=== PATIENT | male | born 1965 | race Caucasian/White ===

== ENCOUNTER 2018-06-30 15:32 | Inpatient (IN) ==
[2018-06-30] MEDS ORDERED: CLINDAMYCIN 900 MG/NS 900 MG/50 ML IVPB IV ONE (16:07)
[2018-06-30] MEDS ORDERED: CLINDAMYCIN 900 MG/D5W 900 MG/50 ML IVPB ONE (16:32)
[2018-06-30 17:04] LABS: BASO# 0.08 X1000 (0.0-0.2); BASO% 0.8 % (0.0-0.8); EOS# 0.11 X1000 (0.0-0.7); EOS% 1.1 % (0.0-10.0); HEMATOCRIT 34.3 % (42.0-52.0); HEMOGLOBIN 11.3 g/dL (14.0-18.0); IMM GRAN# 0.01 X1000 (0.0-0.04); IMM GRAN% 0.1 % (0.0-0.5); LYMPH# 1.79 X1000 (1.2-3.4); LYMPH% 17.2 % (20.5-51.1); MCHC 32.9 g/dL (33-37); MCV 106.2 FL (81-99); MONO# 1.72 X1000 (0.11-0.59); MONO% 16.5 % (1.7-9.3); MPV 9.1 FL (7.4-10.4); NEUT# 6.71 X1000 (1.4-6.5); NEUT% 64.3 % (42.2-75.2); PLT 152 X1000 (130-400); RBC 3.23 XMIL (4.7-6.1); RDW 20.3 % (11.5-14.5); WBC 10.42 X1000 (4.8-10.8)
[2018-06-30 17:09] LABS: OCCULT BLOOD 1 NEGATIVE (NEGATIVE)
[2018-06-30 17:15] LABS: INR 1.87; PROTIME 22.4 Seconds (11.0-16.0)
[2018-06-30 17:16] LABS: PTT 43.6 Seconds (22.3-41.8)
[2018-06-30 17:23] LABS: AGAP 12; ALBUMIN 2.8 g/dL (3.5-5.0); ALKALINE PHOSPHATASE 165 U/L (32-122); BUN 5 mg/dL (8-22); CALCIUM 8.4 mg/dL (8.8-10.2); CHLORIDE 91 mmol/L (98-107); COSMO 270; CREATININE 0.5 mg/dL (0.7-1.2); ESTIMATED GFR > 60; GLUCOSE 113 mg/dL (70-104); GOT 104 U/L (10-34); GPT 22 U/L (10-44); LIPASE 49 U/L (13-60); POTASSIUM 2.9 mmol/L (3.5-5.1); SODIUM 136 mmol/L (136-145); TCO2 33 mmol/L (25-35); TOTAL PROTEIN 8.5 g/dL (6.3-8.3)
[2018-06-30] MEDS ORDERED: KLOR-CON PO ONE (18:05)
[2018-06-30] MEDS ORDERED: CLINDAMYCIN 900 MG/D5W 900 MG/50 ML IVPB IV SCH (18:30)
--- NOTE | 2018-06-30 19:50 | HISTORY AND PHYSICAL ---
CHIEF COMPLAINT: Generalized weakness. HISTORY OF PRESENT ILLNESS: The patient is a 53-year-old male who states he has history of alcohol induced liver issues, but notes that he has never been told he has cirrhosis before. States that he has not really eaten anything for the past month. He has had decreased appetite, generalized weakness, states his abdomen has been getting larger. He is unsure of when his eyes became muddy or skin became jaundiced because he did not realize that that had happened even at this point. Patient denies any fevers or chills. Denies any constipation or melena but notes that he has not been eating. Denies any vomiting or hematemesis. ALLERGIES: No known drug allergies. MEDICATIONS: We do not have an active medication list. REVIEW OF SYSTEMS: As noted above. Denies any GI issues other than nausea, decreased appetite. Denies any hematemesis, hematochezia, melena. Denies chest pain or palpitations. Denies any fevers or chills. States that he does have a rash on his right testicle that keeps popping up and busting. Notes that he has had black stools in the past, but nothing in the past few days. Denies any localized weakness. Denies headaches, blurred vision, change in vision. States he is generally weak and having difficulty ambulating. States he has a long history of alcoholism, but does note that he has been slowly weaning down his alcohol and currently is drinking less than 1 drink a day. FAMILY HISTORY: Noncontributory. 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 SOCIAL HISTORY: Patient lives at home. He does smoke a pack a day. He has a long history of alcoholism but notes that he has been slowly decreasing and currently is less than 1 drink a day. PHYSICAL EXAMINATION: VITAL SIGNS: Reviewed. Temperature 98 degrees, pulse 109, respiratory rate 18, BP 125/89, saturation 96% on room air. GENERAL: Patient is awake, alert. He is very pleasant to talk with. HEENT: Normocephalic. NECK: Supple. CARDIOVASCULAR: Regular rate. CHEST: Clear. ABDOMEN: Soft. Positive fluid wave, distended, relatively nontender. Decreased bowel sounds. EXTREMITIES: Moves all extremities. NEUROLOGIC: He is awake, alert, oriented. LABORATORY DATA: CBC essentially normal. Potassium 2.9. Glucose 113, bilirubin 7.1, AST 104, ALT 22, alkaline phosphatase 165 and plasma lactate at 2.3. ASSESSMENT: 1. Sepsis secondary to scrotal infection. 2. Scrotal cellulitis. 3. 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 4. Chronic alcoholism. 5. Jaundice with elevated bilirubin. PLAN: We will transfer him to [facility] so we can obtain a CT scan of his abdomen as well as a GI consult. We will continue to follow, keep him n.p.o. currently until after his CT scan, and we will follow. cc: Juan Francisco Edwards MD
[2018-07-01] MEDS ORDERED: ZOFRAN IV PRN (00:51)
[2018-07-01] MEDS ORDERED: MOTRIN PO ONE (01:08)
[2018-07-01 02:17] LABS: URINE SOURCE CLEAN CATCH
[2018-07-01 02:25] LABS: BILIRUBIN URINE MODERATE (NEGATIVE); BLOOD URINE LARGE (NEGATIVE); COLOR YELLOW; GLUCOSE URINE NEGATIVE (NEGATIVE); KETONE URINE 10 mg/dL (NEGATIVE); LEUKOCYTES URINE TRACE (NEGATIVE); NITRITE URINE NEGATIVE (NEGATIVE); PROTEIN URINE 50 mg/dL (NEGATIVE); TURBIDITY URINE HAZY (CLEAR); UROBILINOGEN URINE >12 mg/dL (NORMAL)
[2018-07-01 02:29] LABS: UR EPITHELIAL CELLS <10 /HPF (<10); URINE BACTERIA NEGATIVE /HPF; URINE RBC TNTC /HPF (<10); URINE WBC <10 /HPF (<10)
[2018-07-01 02:59] LABS: URINE YEAST NONE SEEN
[2018-07-01 03:00] LABS: URINE CASTS NONE SEEN; URINE CRYSTALS NONE SEEN; URINE SMALL ROUND CELLS NONE SEEN
[2018-07-01] MEDS: CLINDAMYCIN 900 MG/D5W 900 MG/50 ML IVPB IV SCH ×3 (03:00→17:57)
[2018-07-01] MEDS: MORPHINE IV PRN ×2 (03:05→16:21)
[2018-07-01] MEDS: SYNTHROID PO SCH (06:11)
[2018-07-01 07:33] LABS: HEMATOCRIT 32.2 % (42.0-52.0); HEMOGLOBIN 10.3 g/dL (14.0-18.0); MCH 34.7 PG (27-31); MCV 108.4 FL (81-99); MPV 8.9 FL (7.4-10.4); RBC 2.97 XMIL (4.7-6.1); RDW 19.7 % (11.5-14.5); WBC 7.01 X1000 (4.8-10.8)
--- NOTE | 2018-07-01 08:01 | Diag Imaging Result Doc PS360 ---
EXAM: CT ABD/PELVIS W/IV CONT ONLY 07/01/2018 HISTORY: elev t bili TECHNIQUE: This exam was performed using automated exposure control, adjustment of mA or kV according to patient size, and/or use of iterative reconstruction technique. COMMENT: There is a large left pleural effusion. There is atelectasis of the left lower lobe. There is marked ascites. The spleen is enlarged measuring 16.3 x 13.3 cm. The liver is markedly inhomogeneous and shrunken in appearance. The liver is generally hypodense. There are multiple small stones in the gallbladder. The gallbladder wall is not particularly thickened. There is no evidence of biliary dilatation. The common bile duct measures less than 6 mm. There are numerous variceal collaterals. There has been gastric bypass. There are multiple nodules in the right adrenal gland one of which in the medial lobe measures 13 mm. There is less densely enhancing nodularity in the midportion of the gland measuring 15 mm in diameter. The left adrenal gland is unremarkable. There are multiple enlarged mesenteric nodes as well as periportal nodes one of which measures 15 mm in diameter. There is diverticulosis coli. There is no evidence of small bowel dilatation. There is no evidence of hydronephrosis. There is a small cyst in the lower pole of the right kidney. There is a 4 mm calculus in the lower pole of the right collecting system. Pelvis: There is marked diverticulosis in the sigmoid colon without evidence of diverticulitis. The urinary bladder is not distended. There is ankylosis of both sacroiliac joints. There is no evidence of acute bony abnormality. IMPRESSION: Severe cirrhosis with extensive hepatic necrosis. Ascites and splenomegaly. Right nephrolithiasis. Diverticulosis coli. Mesenteric and periportal adenopathy. Large left pleural effusion and left lower lobe atelectasis. Electronically signed by Usman Whitt 07/01/2018 7:59 AM
[2018-07-01 09:40] LABS: AGAP 11; ALB/GLOB RATIO 0.6; ALBUMIN 2.6 g/dL (3.5-5.0); ALKALINE PHOSPHATASE 125 U/L (32-122); BUN 6 mg/dL (8-22); CHLORIDE 93 mmol/L (98-107); COSMO 269; CREATININE 0.7 mg/dL (0.7-1.2); ESTIMATED GFR > 60; GLUCOSE 97 mg/dL (70-104); GOT 100 U/L (10-34); GPT 20 U/L (10-44); POTASSIUM 2.9 mmol/L (3.5-5.1); SODIUM 136 mmol/L (136-145); TCO2 32 mmol/L (25-35); TOTAL BILIRUBIN 5.85 mg/dL (0.20-1.00); TOTAL PROTEIN 7.1 g/dL (6.3-8.3)
[2018-07-01] MEDS: PROTONIX PO SCH (09:43)
[2018-07-01] MEDS ORDERED: KLOR-CON PO ONE (10:00)
[2018-07-01] MEDS ORDERED: LASIX PO SCH (10:00)
[2018-07-01] MEDS ORDERED: LACTULOSE PO SCH (10:00)
[2018-07-01] MEDS ORDERED: ALDACTONE PO SCH (10:00)
[2018-07-01] MEDS ORDERED: ATIVAN IV PRN (10:02)
--- NOTE | 2018-07-01 10:41 | PROGRESS NOTE ---
DATE: 07/01/2018 SUBJECTIVE: The patient is resting comfortably in bed. He is complaining of some abdominal pain and distention, and scrotal discomfort. He is not having nausea or vomiting but his appetite has decreased. As per the patient, he started drinking around 20 years ago. Mainly, he has been drinking vodka and he is a heavy drinker. As per the patient, he is an alcoholic and he has been trying to stop multiple times. He has been transferred from [facility] to this hospital to be evaluated by the gastroenterology department and urology. We have a CT scan report that showed severe cirrhosis with extensive hepatic necrosis, ascites and splenomegaly, right nephrolithiasis, diverticulosis coli mesenteric and periportal adenopathy, large left pleural effusion, and left lower lobe atelectasis. OBJECTIVE: Vital Signs: Temperature 98 degrees, pulse 93, respiratory rate 16, blood pressure 112/64, oxygen saturation 98 on room air. HEENT: Head normocephalic. No trauma. PERRLA. Icteric sclerae. Skin: Jaundiced. Spider angiomata, which is mostly on his chest. Neck: Supple. No JVD. Central trachea. Chest: Bilateral crackles at the bases, mostly on the left side. Decreased breath sounds at the bases. Abdomen: Soft, protuberant, distended, ascites. Extremities: No clubbing, no cyanosis. Inguinal Area: His scrotal area has an indurated area and, as per the patient, drained some pus a few days ago. It is still red and painful to palpation. Neurologic Examination: The patient is alert and oriented x3. No focal deficits. Laboratory: WBCs 7, hemoglobin 10.3, hematocrit 32.2, platelets 122,000. Sodium 126, potassium 2.9, chloride 93, bicarbonate 32, BUN 6, creatinine 0.7, glucose 97, calcium 8. Total bilirubin is 5.8, AST 100, ALT 20, alkaline phosphatase 125, albumin 2.6. ASSESSMENT AND PLAN: 1. Sepsis due to scrotal abscess/cellulitis. Urology department also has been consulted to evaluate this patient. It has been described a right nephrolithiasis but we do not see any evidence of hydronephrosis. We will continue with clindamycin for now. We will monitor. 2. Severe cirrhosis with extensive hepatic necrosis. I have placed this patient on lactulose, spironolactone, and furosemide. I have requested an evaluation by the gastroenterology department. As per the patient, he has been told that he had alcoholic hepatitis and a fatty liver but never liver cirrhosis. 3. Alcohol abuse. As per the patient, his last drink was 4 days ago. I have placed this patient on Librium to avoid withdrawal and Ativan as needed. This patient has been highly advised against alcohol abuse. I will continue with daily cessation education. 4. Bilateral pleural effusion. He is not complaining of shortness of breath. For now, we will use diuretics to see how he does. I will request a chest x-ray in the morning. cc: Curtis Willoughby MD
[2018-07-01] MEDS: LIBRIUM PO SCH ×2 (11:05→16:20)
--- NOTE | 2018-07-01 14:57 | EKG Report ---
Test Performed on : 06/30/2018 4:06:33 PM Test Reason : [facility] Blood Pressure : / mmHG Vent. Rate : 107 BPM Atrial Rate : 107 BPM P-R Int : 148 ms QRS Dur : 084 ms QT Int : 318 ms P-R-T Axes : 029 022 177 degrees QTc Int : 424 ms Sinus tachycardia. Septal infarct , age undetermined Abnormal ECG No previous ECGs available Unconfirmed Result
[2018-07-01] MEDS: FOLIC ACID PO SCH (17:57)
[2018-07-01] MEDS: THERA M PLUS PO SCH (17:57)
[2018-07-01] MEDS: VITAMIN B-1 PO SCH (17:57)
[2018-07-01 18:10] LABS: FERRITIN 188 ng/mL (30-400)
--- NOTE | 2018-07-01 18:54 | CONSULTATION ---
DATE OF CONSULTATION: 07/01/2018 ATTENDING AND REFERRING PHYSICIAN: Hospitalist. HISTORY OF PRESENT ILLNESS: This 53-year-old male states that about 2 months ago he had a nodule in the scrotum just to the left of midline. He states it became red and sore, and spontaneously drained. He states it felt better and then about 4 weeks ago it started again, and spontaneously drained. He states he has had a nodule there for the last 4 weeks. He states it is nontender at present. He was seen in the emergency room because of weakness and not feeling well, with some weight loss. A CT scan of the abdomen and pelvis was obtained that revealed cirrhosis with extensive hepatic necrosis, splenomegaly, ascites and a large left pleural effusion. Also noted was a nonobstructing 4 mm stone in the right lower pole kidney. Changes of gastric bypass were also noted. The patient states he has a long history of alcohol abuse and has had liver problems secondary to that. PAST MEDICAL HISTORY: Gastroesophageal reflux disease, gastric ulcers, alcohol-induced hepatitis, fatty liver, hypothyroidism and symptoms of depression. MEDICATIONS: Current medications are documented on the chart. 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 SOCIAL HISTORY: ETOH abuse, still drinking several drinks each day. Cigarettes 3 to 4 a day for greater than 15 years. ALLERGIES: No known drug allergies. REVIEW OF SYSTEMS: He denies any voiding problems. He has had no hematuria. He has had no flank pain. He has no problems with urinary tract infections. He denies any previous urologic surgery. PHYSICAL EXAMINATION: General: An obese, age-apparent, normally developed white male, oriented in all ways and cooperative. HEENT is normal for age. Lungs clear. Cardiovascular: Regular rate and rhythm. Abdomen obese, with ascites. : Uncircumcised male. Both testes are down and somewhat small. Foreskin retracts. There is an approximate 1 cm nodule just to the left of midline in the lower scrotum that is very firm, consistent with an epidermal inclusion cyst. It is nontender. Rectal exam is deferred. Extremities: No cyanosis or clubbing. Lower extremity pitting edema +1. Neurologic: No focal deficits. LABORATORY DATA: He has a white count of 7.01, hemoglobin 10.3, hematocrit 32.2 and platelets are 122,000. Serum electrolytes are normal with a BUN of 17 and creatinine 0.9. A urinalysis had large blood on the dipstick, moderate bilirubin, trace leukocytes. The microscopic exam revealed less than 10 WBC/HPF, zbd-flhqggpt-vs-count red cells, negative bacteria. DIAGNOSTIC DATA: CT scan is as noted in the HPI. IMPRESSION: Patient with multiple medical problems and a history of an infected epidermal inclusion cyst that is resolving. RECOMMENDATIONS: 1. Recommend continuing IV antibiotics. 2. The patient could have the epidermal inclusion cyst removed after his GI and pulmonary problems have resolved. Thank you for this consultation. cc: José Hernandez MD
[2018-07-01] MEDS: VITAMIN K 10 MG in NS 50 ML IV SCH (19:23)
[2018-07-01] MEDS: CYMBALTA PO SCH (20:25)
[2018-07-02] MEDS: LIBRIUM PO SCH ×5 (02:29→22:36)
[2018-07-02] MEDS: CLINDAMYCIN 900 MG/D5W 900 MG/50 ML IVPB IV SCH ×4 (02:33→17:51)
--- NOTE | 2018-07-02 03:44 | GASTROENTEROLOGY CONSULTATION ---
DATE: 07/01/2018 REASON FOR CONSULTATION: Decompensated cirrhosis. HISTORY OF PRESENT ILLNESS: Mr. Kenroy Nath is a 53-year-old gentleman with a past medical history of decompensated cirrhosis with ascites diagnosed in March 2018, who presents with 1 month of decrease in p.o. intake, decreased appetite, diffuse weakness and abdominal pain. The patient reports being hospitalized at [facility] last summer for ascites. At that time he was told that he had alcoholic hepatitis and fatty liver, but was unaware of any underlying cirrhosis. [facility] where he underwent an EGD and colonoscopy that revealed polyps. He said there was no evidence of varices per his report. Records unavailable for review. More recently, he has noticed a 15 pound weight loss associated with decreased appetite. No nausea, vomiting, fevers, chest pain or shortness of breath. He has noted some decreased urine output and constipation. No diarrhea. He has had black stool in the past while taking iron. None recently. He has never had a paracentesis in the past. He does drink quite a bit of alcohol, but has been weaning down, most recently drinking about a pint of liquor per day. Last year he was drinking up to a fifth alcohol daily, and been drinking for the last 15 to 20 years. PAST MEDICAL HISTORY: Gastric bypass, Nik-en-Y 20 years ago, alcoholism. PAST SURGICAL HISTORY: Nik-en-Y gastric bypass. FAMILY HISTORY: His brother and sister are both alcoholics. No family history of liver disease or GI malignancy. SOCIAL HISTORY: He smokes 3 to 4 cigarettes per day. Alcohol intake as above. No drug use. MEDICATIONS: He is on Cymbalta, levothyroxine, pantoprazole. ALLERGIES: No known drug allergies. REVIEW OF SYSTEMS: As per HPI, otherwise 12 point review of systems. PHYSICAL EXAMINATION: Vital Signs: Temperature 98.2, pulse 107, blood pressure 113/66, respiratory rate 18, O2 saturation 96% on room air. General: Patient is awake, alert, oriented, no acute distress. HEENT: Sclera icteric. Extraocular motor intact. Moist mucous membranes. No oropharyngeal lesions. Neck: Supple. No JVD. No lymphadenopathy. Cardiac: Tachycardic, regular. No murmurs. Lungs: Decreased breath sounds on the left posterior lung field. Clear to auscultation on the right. Abdomen: Obese, soft, nontender. Minimally distended. Difficult to appreciate ascites. Extremities: No clubbing, cyanosis, or edema. Neurologic: Cranial nerves II-XII grossly intact. No asterixis. LABORATORY: On admission: White count of 10.4, hemoglobin 11.3, platelets of 152,000. INR of 1.87. Sodium 136, potassium 2.9, chloride 91, bicarb 33, BUN 5, creatinine 0.5, glucose 113, calcium 8.4, magnesium 1.8, total bilirubin 7.1, AST 104, ALT 22, alkaline phosphatase 165, albumin 2.8, total protein 8.5, lipase 49, plasma lactate 2.3, TSH 5.5. UA notable for large blood, proteinuria, bilirubin, trace leuk esterase, no white blood cells. Occult blood, stool negative. Blood cultures x 2 pending. Urine culture pending. IMAGING: CT of the abdomen and pelvis with IV contrast only shows severe cirrhosis with extensive hepatic necrosis, ascites and splenomegaly, right nephrolithiasis, diverticulosis, mesenteric and periportal adenopathy, large left pleural effusion and left lower lobe atelectasis. ASSESSMENT AND PLAN: Mr. Kenroy Nath is a 53-year-old gentleman who presents with worsening decompensated alcoholic cirrhosis, complicated by ascites, jaundice. His LFTs show cholestatic liver injury with the AST/ALT ratio 3:1, consistent with alcoholic liver disease and alcoholic hepatitis. Discriminant function is 48, his [*] sodium is 23. He is currently on antibiotics for scrotal abscess versus cellulitis. Urology is following. In light of possibility of infection, he is not a candidate for steroids at this moment. We will continue to treat him supportively by trending his LFTs, INR and [*]. Other notable findings on his labs include macrocytic anemia ,coagulopathy hypokalemia, elevated lactate. 1. Decompensated alcoholic cirrhosis and ascites appears to be perihepatic and perisplenic. Minimal ascites is visualized in his lower abdomen, probably [*] difficult to tap at this time. 2. Esophageal varices. The patient had a recent EGD a couple months ago that was negative for varices, although he does have intra-abdominal varices seen on imaging. We will continue to monitor for any signs of overt bleeding. 3. Hepatic encephalopathy. Patient has no evidence of asterixis or encephalopathy at this time. We will hold sedating medications and continue to monitor for any changes. 4. [*]screening. No evidence of hepatoma seen on CT abdomen and pelvis. The patient will need a screening liver ultrasound every 6 months to evaluate for HCC. The patient is not a candidate for liver transplant evaluation at this time given his recent alcohol use and lack of insight of his underlying liver disease. 5. Immunizations. At some point he will need to have hepatitis A and B serology checked for immunity and vaccinated if negative. We will check hepatitis B surface antigen and hepatitis C antibody here in the hospital. 6. Alcoholic hepatitis. The patient is not a candidate for steroids at this time given his cellulitis versus abscess. We will start him on pentoxifylline for renal protection. Recommend high protein calorie diet, multivitamin, thiamin, folate and continued alcohol cessation counseling. 7. Cellulitis versus abscess. The patient is on clindamycin per primary team. 8. Anemia, macrocytic. We will check B12 and folate as well as iron studies. 9. Thrombocytopenia secondary to splenomegaly. 10. Coagulopathy. INR is 1.87. We will give him IV vitamin K 10 mg x 1. 11. Hypokalemia. Recommend replete as needed. Continue to trend chemistries. Defer management to primary team. 12. Severe protein calorie malnutrition, likely secondary to alcoholism and cirrhosis. Nutrition as above. 13. Large left pleural effusion. Recommend diagnostic and therapeutic thoracentesis as per primary team checking for lytes criteria, culture, Gram stain. Thank you for this consult. We will follow with you. Please call with any questions or concerns.
[2018-07-02] MEDS: SYNTHROID PO SCH (06:42)
[2018-07-02 07:48] LABS: BASO# 0.06 X1000 (0.0-0.2); BASO% 0.9 % (0.0-0.8); EOS# 0.17 X1000 (0.0-0.7); EOS% 2.5 % (0.0-10.0); HEMATOCRIT 33.3 % (42.0-52.0); HEMOGLOBIN 10.7 g/dL (14.0-18.0); IMM GRAN# 0.02 X1000 (0.0-0.04); IMM GRAN% 0.3 % (0.0-0.5); LYMPH# 1.26 X1000 (1.2-3.4); LYMPH% 18.6 % (20.5-51.1); MCH 34.6 PG (27-31); MCHC 32.1 g/dL (33-37); MCV 107.8 FL (81-99); MONO# 1.04 X1000 (0.11-0.59); MONO% 15.3 % (1.7-9.3); MPV 9.5 FL (7.4-10.4); NEUT# 4.23 X1000 (1.4-6.5); NEUT% 62.4 % (42.2-75.2); PLT 138 X1000 (130-400); RBC 3.09 XMIL (4.7-6.1); RDW 19.4 % (11.5-14.5); WBC 6.78 X1000 (4.8-10.8)
[2018-07-02 07:51] LABS: INR 2.06; PROTIME 24.7 Seconds (11.0-16.0)
[2018-07-02 08:08] LABS: AGAP 10; ALB/GLOB RATIO 0.5; ALBUMIN 2.4 g/dL (3.5-5.0); ALKALINE PHOSPHATASE 153 U/L (32-122); BUN 6 mg/dL (8-22); CALCIUM 8.2 mg/dL (8.8-10.2); CHLORIDE 96 mmol/L (98-107); COSMO 274; CREATININE 0.9 mg/dL (0.7-1.2); ESTIMATED GFR > 60; GLUCOSE 119 mg/dL (70-104); GOT 102 U/L (10-34); GPT 21 U/L (10-44); MAGNESIUM 1.5 mg/dL (1.5-2.7); SODIUM 138 mmol/L (136-145); TCO2 32 mmol/L (25-35); TOTAL BILIRUBIN 5.77 mg/dL (0.20-1.00); TOTAL PROTEIN 6.8 g/dL (6.3-8.3)
[2018-07-02 08:11] LABS: BANDS 4 % (0-1); EOS 4 % (1-10); LYMPHS 16 % (21-51); MONO 6 % (1-9); SEGS 70 % (42-75)
--- NOTE | 2018-07-02 08:27 | Diag Imaging Result Doc PS360 ---
EXAM: CHEST-2 VIEWS 07/02/2018 HISTORY: hypoxia TECHNIQUE: PA and lateral chest COMMENT: There is a fairly large left pleural effusion. There is atelectasis versus pneumonia in the left lower lobe with air bronchograms. There is some atelectasis in the lingula as well. The right lung is clear. There are no previous studies. IMPRESSION: Left lower lobe and lingular pneumonia with pleural effusion. Electronically signed by Usman Whitt 07/02/2018 8:25 AM
[2018-07-02] MEDS: VITAMIN K 10 MG in NS 50 ML IV SCH (09:04)
[2018-07-02] MEDS: PROTONIX PO SCH (09:05)
[2018-07-02] MEDS: FOLIC ACID PO SCH (09:05)
[2018-07-02] MEDS: THERA M PLUS PO SCH (09:05)
[2018-07-02] MEDS: TRENTAL PO SCH ×3 (09:05→17:51)
[2018-07-02] MEDS: VITAMIN B-1 PO SCH (09:05)
[2018-07-02] MEDS ORDERED: KLOR-CON PO ONE (10:10)
--- NOTE | 2018-07-02 13:50 | PROVIDER PROGRESS NOTE ---
Progress Note SUBJECTIVE: No acute overnight events. No N/V/F, CP. Mild SOB. Abdominal distension but no pain. Some improved UOP. +BM without blood. OBJECTIVE Last Vital Signs Temp 97.8 F 07/02/18 11:45 Pulse 101 H 07/02/18 11:45 Resp 18 07/01/18 15:35 BP 109/63 07/02/18 11:45 Pulse Ox 97 07/02/18 11:45 Height 5 ft 9 in Weight 215 lb 9.6 oz GEN: chronically ill-appearing, NAD HEENT: icteric, MMM CV: tachycardic, regular PULM: decreased BS left posterior lung field; clear on right ABD: obese, distended, NT, NABS, minimal ascites EXT: no cce NEURO: CNII-XII grossly intact; no asterixis SKIN: jaundice LABS 07/02/18 07/02/18 07/02/18 07:26 07:26 07:26 WBC 6.78 Hgb 10.7 L MCV 107.8 H Plt Count 138 INR 2.06 Sodium 138 Potassium 3.0 L Chloride 96 L Carbon Dioxide 32 BUN 6 L Creatinine 0.9 Iron 58 Ferritin 188 Total Bilirubin 5.77 H AST 102 H ALT 21 Alkaline Phosphatase 153 H Total Protein 6.8 Albumin 2.4 L Vitamin B12 >2000 Folate 10.6 A/P: Mr. Kenroy Nath is a 53-year-old gentleman who presents with worsening decompensated alcoholic cirrhosis, complicated by ascites and jaundice. He also had alcoholic hepatitis with high DF. Other notable findings on his labs include macrocytic anemia ,coagulopathy, hypokalemia, elevated lactate. He is currently on antibiotics for scrotal abscess versus cellulitis. He also has large left pleural effusion. # Decompensated alcoholic cirrhosis: - Cirrhosis: ETOH-related: will check hepatitis panel to rule out comorbid HBV/HCV - Ascites: minimal on imaging; low Na diet, will consider starting diuiretcs prior to discharge - HE: none prior - EV: recent EGD 2 months was negative for varices - HCC: no evidence of hepatoma on imaging; repeat liver US every 6 months - OLT: not a candidate for transplant given active ETOH use within 6 months # Alcoholic hepatitis: continue [place]; high protein calorie diet; not a candidate for steroids given cellulitis; left pleural effusion # Macrocytic anemia: normal iron studies, B12, folate; no overt bleeding: trending H/H # Coagulopathy: INR 2.0; received vitamin K 10mg IV yesterday: continue today and tomorrow; give FFP today prior to procedure # Left pleural effusion: recommend diagnostic thoracentesis # Thrombocytopenia secondary to splenomegaly. # Severe protein calorie malnutrition, likely secondary to alcoholism and cirrhosis. Nutrition as above. # Hypokalemia: relete prn We will follow with you. Please call with any questions or concerns.
--- NOTE | 2018-07-02 14:08 | ED EKG INTERP ---
This chart was entered by Giovanna Quezada Scribe, acting as scribe for Theresa Urena MD. EKG Interpretation - EKG Time of EKG reading by physician:: 16:10 EKG Read and Signed by:: Theresa Urena EKG Interpretation (*Must complete 3 of following elements*): Abnormal (septal infarct-age undetermined) Rate: 107 Rhythm: sinus tachycardia [place]: normal QRS: normal ND Interval: normal ST Wave: normal Attestation - Physician/ JEAN-CLAUDE Attestation Patient care was provided by Advanced Practice Provider:: No The physician spent face to face time with patient:: Yes Advanced Practice Provider documentation review:: Supervising physician onsite and consulted in the evaluation and care of this patient. The physician did have a face to face encounter with the patient. This chart was documented by the indicated scribe, (Giovanna Quezada Scribe) and accurately reflects the services I performed and decisions made by mi, Theresa Urena MD, as attested by the provider's signature.
--- NOTE | 2018-07-02 14:09 | PROVIDER DOCUMENTATION ---
This chart was entered by Elizabeth Bhandari Scribe, acting as scribe for Theresa Urena MD. HPI-General Adult - General Chief Complaint: Weakness Stated Complaint: weakness Time Seen by Provider: 06/30/18 15:50 Source: patient, family (pt mother) Allergies/Adverse Reactions: Patient Allergies Allergy/AdvReac Type Severity Reaction Status Date / Time No Known Allergies Allergy Verified 06/30/18 15:47 - History of Present Illness -Gen Adult Nature of Presenting Problems: 53 yom hx of Alcohol induced Hepatitis presents to ed with cc of poor appetite x 1 month with increased weakness. Also reports knots that keep popping up on his testicles and bursting. Reports also has black stools and constipation. Review of Systems - Adult - REVIEW OF SYSTEMS - ADULT Constitutional: denies: chills, fever, fatique Eyes: reports: no symptoms reported Ears, Nose, Mouth & Throat: denies: loose teeth Cardiovascular: reports: no symptoms reported Respiratory: denies: chronic cough, shortness of breath, wheezing Gastrointestinal: reports: poor appetite. denies: abdominal pain, diarrhea, nausea, vomiting Genitourinary: denies: dysuria, discharge, frequency, frequent UTI's, hematuria, hesitency, incontinence, urinary retention, urgency Musculoskeletal: denies: frequent leg cramps, joint pain Integumentary: reports: no symptoms reported Neurological: denies: ataxia, dizziness/vertigo, numbness, paresthesia Psychiatric: denies: no symptoms reported Endocrine: reports: no symptoms reported Hematologic/Lymphatic: reports: no symptoms reported Allergic/Immunologic: reports: no symptoms reported All Other Systems: Reviewed and Negative Past History - Adult - PAST MEDICAL HISTORY-ADULT Review of Records: reports: Nursing Assessment Review, Medications Reviewed Major Childhood Illnesses: reports: denies history Cardiovascular: reports: denies history Respiratory: reports: denies history Gastrointestinal: reports: denies history Obstetrical/Gynecological: reports: denies history Genitourinary: reports: denies history Musculoskeletal: reports: denies history Neurological: reports: denies history Endocrine/Immune: reports: denies history Other Conditions: reports: denies history - IMMUNIZATION STATUS Childhood Immunizations: See Nurse Assessment Flu Vaccine: See Nurse Assessment - FAMILY HISTORY Family History: reviewed, not pertinent - SOCIAL HISTORY Smoking: cigarettes, less than 1 pack/day Provider spent 3-5 mins advising pt. on dangers of tobacco.: Discussed manners to quit use, and f/u contacts for add'l counseling. Substance Use: none/never Physical Exam-General - PHYSICAL EXAM-ADULT Initial Vital Signs Reviewed: Yes - CONSTITUTIONAL General Appearance: appears well, alert, no apparent distress - EYES Eyes: PERRL/EOMI, other (jaundice eyes) - HEAD, EARS, NOSE, MOUTH & THROAT HENMT: moist mucous membranes, normal ENT inspection, TMs normal, pharynx normal - NECK Neck: non-tender, full range of motion, supple, normal inspection - RESPIRATORY Respiratory: chest non-tender, lungs clear, normal breath sounds, no pleuratic chest pain, no respiratory distress, no accessory muscle use - CARDIOVASCULAR Cardiovascular: regular rate, rhythm, no edema, no gallop, no JVD, no murmur - GASTROINTESTINAL (ABDOMEN) Abdominal Exam: no organomegaly, no pulsatile mass, distended (filled with fluid) - GENITOURINARY Male Genitalia: other (tiny scrotum cyst 1cm enduration) Rectal Exam: normal exam - LYMPHATIC Lymphatic: no adenopathy - MUSCULOSKELETAL Back Exam: normal inspection Extremity: normal range of motion, non-tender, normal gait - SKIN Integumentary: normal turgor, warm/dry, jaundice - NEUROLOGIC Neurologic: grossly normal - PSYCHIATRIC Psych/Mental Status: normal mood/affect, normal thought content, normal thought process, oriented x 3 Progress - PLAN OF CARE/RESULTS Progress/Plan/Lab Results: Vital Signs - 8 hr 06/30/18 15:40 Temperature 98.1 F Pulse Rate 109 H Respiratory Rate 18 Blood Pressure 125/69 O2 Sat by Pulse Oximetry 96 Result Diagrams: 06/30/18 16:10 06/30/18 16:10 - CONSULTS/PCP/HOSPITALIST Notification #1 *Consult/PCP/Hospitalist*: [facility] Time Discussed: 17:57 (VERONIKA Perry can be admitted here..) #2 Consult: Jerry Consult Disposition: Will see in ED Departure - Departure Date of Disposition Decision: 06/30/18 Time of Disposition Decision: 17:58 DIAGNOSIS: Hyperbilirubinemia, Scleral icterus, Weakness Disposition: ADMITTED INPATIENT 09 Certified Medical Emergency: Emergent Condition: Stable Referrals and Follow-Ups: None,PCP [Primary Care Provider] - - Critical Care Note This patient required my direct & personal management of CC.: No Attestation - Physician/ JEAN-CLAUDE Attestation Patient care was provided by Advanced Practice Provider:: No The physician spent face to face time with patient:: Yes Advanced Practice Provider documentation review:: Supervising physician onsite and consulted in the evaluation and care of this patient. The physician did have a face to face encounter with the patient. This chart was documented by the indicated scribe, (Elizabeth Bhandari Scribe) and accurately reflects the services I performed and decisions made by me, Theresa Urena MD, as attested by the provider's signature.
--- NOTE | 2018-07-02 14:17 | PROGRESS NOTE ---
DATE: 07/02/2018 SUBJECTIVE: The patient is resting comfortably in bed. He is still complaining of some abdominal distention and mild shortness of breath. He is not having any signs of withdrawal. Since he has generalized weakness I have requested an evaluation by physical therapy department. I will try to get a thoracentesis done tomorrow with interventional radiology. If the INR is still elevated I will probably give him FFP. Potassium level is low today again and I will replace it. OBJECTIVE: Vital Signs: Temperature 97.8 degrees, pulse 101 respiratory rate 18, blood pressure 109/63, oxygen saturation 97% on 2 L of nasal cannula. HEENT: Head normocephalic. No trauma. PERRLA. Icteric sclera. Skin: Jaundice, spider angiomata which is mostly on his chest. Neck: Supple. No JVD. Central trachea. Chest: Bilateral crackles, decreased breath sounds on the right base. Abdomen: Soft, protuberant, distended ascites. Extremities: No clubbing. No cyanosis. Trace edema inguinal area. His scrotal area has an indurated area and as per the patient, has been draining some pus a few days ago. The area is still red and painful to palpation. Neurological: The patient is alert and oriented x3. No focal deficits. LABORATORY: WBC 6, hemoglobin 10.7, hematocrit 33.3, platelets 138,000 sodium 138, potassium 3, chloride 96, bicarbonate 32, BUN 6, creatinine 0.9 glucose 119, calcium 8.2, magnesium 1.5. Total bilirubin 5.7, AST 102, ALT 21, alkaline phosphatase 153, albumin 2.4. ASSESSMENT AND PLAN: 1. Sepsis due to scrotal abscess/cellulitis. I will continue with antibiotics urology department already evaluated this patient. Will monitor. 2. Severe cirrhosis with extensive hepatic necrosis. Gastroenterology department has evaluated this patient. We will continue with the same treatment. We will continue following their recommendations. 3. Alcohol abuse. As per the patient, his last drink was 5 days ago. I have placed this patient on Librium to avoid withdrawal and Ativan as needed. This patient has been highly advised against alcohol abuse. I will continue with daily cessation education. 4. Left pleural effusion, probably I will get a thoracentesis done tomorrow. I will check the PT, PTT, INR again in the morning. He has been getting vitamin K will probably give him some FFP if I have to. 5. Coagulopathy. INR is around 2. Continue with the vitamin K. 6. Severe protein calorie malnutrition. Likely secondary to alcoholic cirrhosis. This patient will need a high-protein diet. We will monitor. cc: Curtis Willoughby MD
[2018-07-02] MEDS ORDERED: ALBUMIN 25% IV ONE (15:05)
[2018-07-02] MEDS: CYMBALTA PO SCH (22:36)
[2018-07-02] MEDS: MORPHINE IV PRN (23:48)
[2018-07-03] MEDS: LIBRIUM PO SCH ×3 (03:27→17:22)
[2018-07-03] MEDS: CLINDAMYCIN 900 MG/D5W 900 MG/50 ML IVPB IV SCH ×3 (03:33→17:57)
[2018-07-03] MEDS: SYNTHROID PO SCH (06:10)
[2018-07-03 07:52] LABS: BASO# 0.03 X1000 (0.0-0.2); BASO% 0.5 % (0.0-0.8); EOS# 0.18 X1000 (0.0-0.7); HEMATOCRIT 29.6 % (42.0-52.0); HEMOGLOBIN 9.5 g/dL (14.0-18.0); IMM GRAN# 0.02 X1000 (0.0-0.04); IMM GRAN% 0.3 % (0.0-0.5); LYMPH# 1.52 X1000 (1.2-3.4); LYMPH% 25.7 % (20.5-51.1); MCH 34.7 PG (27-31); MCHC 32.1 g/dL (33-37); MONO% 16.9 % (1.7-9.3); MPV 8.9 FL (7.4-10.4); NEUT# 3.17 X1000 (1.4-6.5); NEUT% 53.6 % (42.2-75.2); PLT 111 X1000 (130-400); RBC 2.74 XMIL (4.7-6.1); RDW 19.5 % (11.5-14.5); WBC 5.92 X1000 (4.8-10.8)
[2018-07-03 07:56] LABS: INR 2.13; PROTIME 25.4 Seconds (11.0-16.0)
[2018-07-03 07:57] LABS: PTT 50.8 Seconds (22.3-41.8)
[2018-07-03 08:05] LABS: AGAP 10; ALB/GLOB RATIO 0.7; ALBUMIN 2.7 g/dL (3.5-5.0); ALKALINE PHOSPHATASE 125 U/L (32-122); BUN 5 mg/dL (8-22); CALCIUM 8.3 mg/dL (8.8-10.2); CHLORIDE 97 mmol/L (98-107); COSMO 275; CREATININE 0.6 mg/dL (0.7-1.2); ESTIMATED GFR > 60; GLUCOSE 100 mg/dL (70-104); GOT 105 U/L (10-34); GPT 20 U/L (10-44); POTASSIUM 3.3 mmol/L (3.5-5.1); SODIUM 139 mmol/L (136-145); TCO2 32 mmol/L (25-35); TOTAL BILIRUBIN 4.83 mg/dL (0.20-1.00); TOTAL PROTEIN 6.7 g/dL (6.3-8.3)
[2018-07-03] MEDS ORDERED: KLOR-CON PO ONE (08:20)
[2018-07-03] MEDS: TRENTAL PO SCH ×3 (09:28→17:23)
[2018-07-03] MEDS: VITAMIN B-1 PO SCH (09:28)
[2018-07-03] MEDS: THERA M PLUS PO SCH (09:28)
[2018-07-03] MEDS: VITAMIN K 10 MG in NS 50 ML IV SCH (09:29)
[2018-07-03] MEDS: PROTONIX PO SCH (09:29)
[2018-07-03] MEDS: FOLIC ACID PO SCH (09:29)
[2018-07-03 10:12] LABS: HEPATITIS PROFILE ACUTE SEE COMMENTS
[2018-07-03] MEDS ORDERED: NS 1,000 ML ONE (11:07)
--- NOTE | 2018-07-03 12:13 | PROGRESS NOTE ---
DATE: 07/03/2018 SUBJECTIVE: Patient is resting comfortably in bed. He is complaining of some abdominal distention and shortness of breath but compared with yesterday, he feels a little bit better. He is not having any signs of alcohol withdrawal. I requested physical therapy and actually, at this moment, they are working with him. I will try to get a thoracentesis done today. He will receive some FFP and vitamin K. Case has been discussed with gastroenterology department. OBJECTIVE: Vital Signs: Temperature 97.7 degrees, pulse 89, respiratory rate 18, blood pressure 98/61, oxygen saturation 98 on room air. HEENT: Head normocephalic. No trauma. PERRLA. Icteric sclerae. Skin: Jaundiced. Spider angiomata, which is mostly on his chest. Neck: Supple. No JVD. Central trachea. Chest: Bilateral crackles. Decreased breath sounds at the left base. Abdomen: Soft, protuberant, distended, ascites. Extremities: No clubbing. No cyanosis. Trace edema. Inguinal Area: In his scrotal area, he has a hard area that, as per the patient, has been draining some pus but not right now. It is still red and painful to palpation. Neurological Examination: The patient is alert and oriented x3. No focal deficits. Laboratory: WBC 5.9, hemoglobin 9.5, hematocrit 29.6, platelets 111,000. Sodium 139, potassium 3.3, chloride 97, bicarbonate 32, BUN 5, creatinine 0.6, glucose 100, calcium 8.3. Total bilirubin 4.8, AST 105, ALT 20, alkaline phosphatase 125, albumin 2.7. ASSESSMENT AND PLAN: 1. Sepsis due to scrotal abscess/cellulitis. We will continue with antibiotics. Urology department already evaluated this patient. We will monitor. 2. Severe cirrhosis with extensive hepatic necrosis. Gastroenterology department has evaluated this patient. We will continue with the same treatment. We will continue following their recommendations. 3. Alcohol abuse. As per the patient, his last drink was 6 days ago. I have placed this patient on Librium to avoid withdrawal and Ativan as needed. He is not having any kind of withdrawal symptoms at this moment. This patient has been highly advised against alcohol abuse. I will continue with daily cessation education. 4. Left pleural effusion. Probably, I will get a thoracentesis done today. He will receive vitamin K and also fresh frozen plasma to see if that helps with the coagulopathy. 5. Coagulopathy. INR is 2.1. We will continue with the vitamin K and he will get a one time fresh frozen plasma. 6. Severe protein calorie malnutrition, likely secondary to alcoholic cirrhosis. The patient will need a high-protein diet. We will continue to monitor. cc: Curtis Willoughby MD
[2018-07-03] MEDS: LACTULOSE PO SCH ×2 (12:39→20:56)
--- NOTE | 2018-07-03 15:08 | GASTROENTEROLOGY PROGRESS NOTE ---
DATE: 07/03/2018 SUBJECTIVE: Resting in bed. He is feeling better. He denies any new complaints. Denies any nausea, vomiting. He feels constipated and bloated. OBJECTIVE: Vital signs: Temperature 97.8, pulse of 92, respiratory blood of 14, blood pressure of 105/66, saturating 98% on room air. Body weight of 215 pounds 9.6 ounces. BMI of 31.8 kg. General: Moderately built, moderately nourished, lying in bed, in no acute distress. HEENT: Pale conjunctivae. Icteric sclerae. Pupils equal and reactive to light. Neck: Supple. Abdomen: Protuberant. Tympanic to percussion, may be questionable ascites. Mild distention noted. Extremities: No cyanosis or clubbing. Neurologic: He is alert, awake and oriented. DIAGNOSTIC DATA: Hemoglobin and hematocrit 9.5 and 29.6, white count of 5.9, platelet count of 111,000. Sodium of 139, potassium 3.3, chloride 97, bicarb 30, anion gap 10, BUN of 5, creatinine 0.6, glucose of 100. Calcium is 8.3. PT of 25.4, INR of 2.13, PTT of 15.8. Hepatitis panel is nonreactive. Last bowel movement on 07/02/2018. IMPRESSION AND PLAN: 1. Alcoholic liver cirrhosis. We will continue to watch his liver enzymes. The patient is counseled to quit drinking completely. 2. Ascites. He has some ascites. We need to monitor. He will continue a low sodium diet. 3. Constipation. We will start him on lactulose 30 mL p.o. t.i.d. and hold for more than 3 bowel movements in 24 hours. 4. We will continue him on pentoxifylline 400 mg p.o. t.i.d. for alcoholic hepatitis. 5. Anemia. Continue to watch for now, transfuse as needed. 6. Coagulopathy, with high INR. He is on vitamin K. 7. Thrombocytopenia. Continue to watch for now. 8. Protein calorie malnutrition. The patient is eating better. 9. The patient will return to clinic in 3 weeks after discharge. The above plan was discussed with the patient and all questions were answered. Please call us with any questions. cc: MD LEONARDO Kimble
[2018-07-03 16:07] LABS: INR 1.96; PROTIME 23.8 Seconds (11.0-16.0)
[2018-07-03] MEDS: CYMBALTA PO SCH (20:56)
[2018-07-04] MEDS: LIBRIUM PO SCH ×4 (01:36→15:23)
[2018-07-04] MEDS: CLINDAMYCIN 900 MG/D5W 900 MG/50 ML IVPB IV SCH ×2 (03:00→11:12)
[2018-07-04] MEDS: SYNTHROID PO SCH (06:19)
[2018-07-04 06:54] LABS: BASO# 0.04 X1000 (0.0-0.2); BASO% 0.7 % (0.0-0.8); EOS# 0.15 X1000 (0.0-0.7); EOS% 2.6 % (0.0-10.0); HEMATOCRIT 29.9 % (42.0-52.0); HEMOGLOBIN 9.6 g/dL (14.0-18.0); IMM GRAN# 0.02 X1000 (0.0-0.04); IMM GRAN% 0.3 % (0.0-0.5); LYMPH# 1.17 X1000 (1.2-3.4); LYMPH% 20.5 % (20.5-51.1); MCH 34.5 PG (27-31); MCHC 32.1 g/dL (33-37); MCV 107.6 FL (81-99); MONO# 0.75 X1000 (0.11-0.59); MONO% 13.1 % (1.7-9.3); MPV 9.2 FL (7.4-10.4); NEUT# 3.59 X1000 (1.4-6.5); NEUT% 62.8 % (42.2-75.2); PLT 119 X1000 (130-400); RBC 2.78 XMIL (4.7-6.1); RDW 19.3 % (11.5-14.5); WBC 5.72 X1000 (4.8-10.8)
[2018-07-04 06:58] LABS: INR 2.11; PROTIME 25.2 Seconds (11.0-16.0)
[2018-07-04 07:20] LABS: AGAP 12; ALB/GLOB RATIO 0.6; ALBUMIN 2.6 g/dL (3.5-5.0); ALKALINE PHOSPHATASE 120 U/L (32-122); BUN 5 mg/dL (8-22); CALCIUM 7.8 mg/dL (8.8-10.2); CHLORIDE 99 mmol/L (98-107); COSMO 277; CREATININE 0.7 mg/dL (0.7-1.2); ESTIMATED GFR > 60; GLUCOSE 97 mg/dL (70-104); GOT 122 U/L (10-34); GPT 21 U/L (10-44); POTASSIUM 3.2 mmol/L (3.5-5.1); SODIUM 140 mmol/L (136-145); TCO2 29 mmol/L (25-35); TOTAL BILIRUBIN 5.65 mg/dL (0.20-1.00); TOTAL PROTEIN 6.9 g/dL (6.3-8.3)
[2018-07-04] MEDS ORDERED: KLOR-CON PO ONE (08:21)
[2018-07-04] MEDS: LACTULOSE PO SCH (09:01)
[2018-07-04] MEDS: PROTONIX PO SCH (09:01)
[2018-07-04] MEDS: THERA M PLUS PO SCH (09:01)
[2018-07-04] MEDS: VITAMIN B-1 PO SCH (09:01)
[2018-07-04] MEDS: FOLIC ACID PO SCH (09:01)
[2018-07-04] MEDS: TRENTAL PO SCH ×2 (09:01→13:25)
[2018-07-04] MEDS: VITAMIN K 10 MG in NS 50 ML IV SCH (09:01)
[2018-07-04 16:06] VITALS: BP 111/69
--- NOTE | 2018-07-05 10:07 | DISCHARGE SUMMARY ---
ADMISSION DATE: 06/30/2018 DISCHARGE DATE: 07/04/2018 DISCHARGE DIAGNOSES: 1. Sepsis due to scrotal cellulitis/abscess. 2. Severe cirrhosis with extensive hepatic necrosis. 3. Alcohol abuse. 4. Left pleural effusion. 5. Coagulopathy. 6. Severe protein calorie malnutrition. PROCEDURES PERFORMED: 1. Abdomen and pelvis CT scan dated 07/01/2018. Impression: Severe cirrhosis with extensive hepatic necrosis, ascites and splenomegaly, right nephrolithiasis, diverticulosis coli, mesenteric and periportal adenopathy, a large pleural effusion and left lower lobe atelectasis. 2. Chest x-ray dated 07/10/2018. Impression: Left lower lobe and lingular pneumonia with pleural effusion. HOSPITAL COURSE: A 53-year-old male with a past medical history of alcohol-induced liver issues, apparently he has never been told that he has cirrhosis before, admitted on 06/30/2017, as per the patient he has not really eaten anything for the past month, decreased appetite and generalized weakness, he also states that his abdomen has been getting larger and he noticed some jaundice, he denied any fever or chills. No constipation or melena. He denies any vomiting or hematemesis. Upon admission, he we noticed that this patient was tachycardic and he also had a scrotal swelling and redness with an area of induration of around 3 to 4 cm. We noticed also that he has a little wound that, as per the patient was draining pus before, warm to palpation with signs of cellulitis. He was admitted and placed on antibiotics, clindamycin. He was complaining of mild shortness of breath but no cough, no fever, no chills. We did a CT scan of the abdomen and pelvis that showed severe cirrhosis with extensive hepatic necrosis, ascites and splenomegaly, right nephrolithiasis, diverticulosis coli, mesenteric and periportal adenopathy, large left pleural effusion and left lower lobe atelectasis. Gastroenterology Department was consulted. 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 No evidence of asterixis or encephalopathy, he was thrombocytopenic, likely secondary to splenomegaly. He was coagulopathic. They suggested to do a therapeutic thoracentesis at the level of the left side of the thorax because of his left pleural effusion, we requested that to be done, but the INR was elevated around 2. Even though we gave him some vitamin K and we also tried with FFP, since this patient is not complaining of shortness of breath or chest pain. We will try with diuretics, and follow this patient up closely. Urology Department also evaluated this patient and they recommended to continue with antibiotics, they said that this patient may have an epidermal inclusion cyst that can be removed after his GI and pulmonary problem has resolved, they will follow this patient up as an outpatient. We explained to the patient in detail that he does have liver cirrhosis and we explained to the patient in detail that he needs to take his medications as prescribed, he needs he needs to stop drinking completely, and we talked about this multiple times. Today we re-evaluated this patient. The wound at the level of the inguinal area looks much better, is still a little bit painful to palpation. He has some blood because this patient tried to scratch himself in that area, but no major issues, the size is smaller and the redness is almost gone. I will continue with the same treatment through his mouth at home, I discussed the case also with Gastroenterology Department, Dr. De Luna, we discussed also about the diuretics, so we will start with a low dose treatment with Lasix 20 mg p.o. daily and spironolactone 50, I called the Gastroenterology's office and made an appointment for the patient, he will see Dr. Bennett next 07/06/2018, at 10:30 a.m. to see how he does and to do changes if we have to. Also, he needs to follow up with Mary Ortega, which is the urologist, in 1 to 2 weeks. He needs to complete the treatment with antibiotics first. Upon discharge, the patient was in a stable medical condition. He was tolerating p.o. He is still having some weakness, but he was able to walk to the bathroom and do everything by himself. OBJECTIVE: Vital Signs: Temperature 98.4 degrees, pulse 106, respiratory rate 20, blood pressure 111/69, oxygen saturation 100% on room air. HEENT: Head normocephalic, no trauma. PERRLA. Icteric sclerae. Skin jaundice,d spider angiomata which is mostly on his chest. Neck: Supple no JVD. Central trachea. Chest: Bilateral crackles and decreased breath sounds at the left base. Abdomen: Soft, protuberant, distended, ascites. Extremities: No clubbing, no cyanosis, trace edema. Inguinal area, he has a hard area that is getting better and apparently drained already some pus, but not right now, still a little bit red but much better compared with admission. Neurological: The patient is alert and oriented x3. No focal neurological deficits. LABORATORY: WBC 5.7, hemoglobin 9.6, hematocrit 29.9, platelet 119,000. Sodium 140, potassium 3.2, chloride 99, bicarbonate 29 BUN 5, creatinine 0.7, glucose 97, calcium 7.8, total bilirubin 5.6, AST 122, ALT 21, alkaline phosphatase 120, albumin 2.6. DISCHARGE MEDICATIONS: 1. Clindamycin 300 mg p.o. every 8 hours to complete 10 days. 2. Spironolactone 50 mg p.o. daily. 3. Folic acid 1 mg p.o. daily. 4. Lactulose 30 mL p.o. twice a day, I explained to the patient that he can decrease the dose of the lactulose if he is having more than 3 bowel movements. 5. Furosemide 20 mg p.o. daily. 6. Librium 10 mg p.o. q.12 hours for 3 more days, then 1 capsule daily for 3 days and then 1 capsule as needed daily. 7. Multivitamins 1 tablet p.o. daily. 8. Thiamine 100 mg p.o. daily. 9. Pentoxifylline 400 mg p.o. 3 times a day. 10. Duloxetine 30 mg p.o. at bedtime. 11. Levothyroxine 50 mcg p.o. daily. 12. Pantoprazole 40 mg p.o. q.a.m. FOLLOWUP: Follow up with Gastroenterology Department next Saturday07/07/2018 at 10:30 a.m., patient has been notified. TIME SPENT: Discharging this patient, 40 minutes. cc: Curtis Willoughby MD
== END 2018-07-04 17:20 | disposition home or self-care (01) | DRG 871 ==
LOC: P.ED 15:32 → 3N 20:37
PROVIDERS: ATTEND Internal Medicine
CPT/HCPCS: 36430; 71020; 71046; 74177; 80053; 80074; 81001; 82150; 82270; 82607; 82728; 82746; 82948; 83540; 83605; 83690; 83735; 84443; 85025; 85027; 85610; 85730; 86850; 86900; 86901; 87040; 87088; 93005; 94761; 96365; 97162; 97530; 99285; A9270; J2060; J2270; J3430; J7030; P9017; P9047; Q9967; S0077; XXXXX

== ENCOUNTER 2018-08-31 13:52 | Inpatient (IN) ==
[2018-08-31] MEDS ORDERED: LR 1,000 ML IV ONE (15:16)
--- NOTE | 2018-08-31 15:34 | Diag Imaging Result Doc PS360 ---
EXAM: CHEST-PORTABLE 08/31/2018 HISTORY: weakness TECHNIQUE: AP portable at 1527 COMMENT: There is a left pleural effusion. This was also the case on 07/02/2018. There is hazy opacity over the entire chest which may be due to the pleural fluid however the possibility of pneumonia particularly in the left lower lobe cannot be excluded. The right lung is essentially clear. IMPRESSION: Left pleural effusion and lower lobe pneumonia. Electronically signed by Usman Whitt 08/31/2018 3:32 PM
[2018-08-31 15:38] LABS: ESTIMATED GFR > 60
[2018-08-31 15:55] LABS: AGAP 13; ALB/GLOB RATIO 0.6; ALBUMIN 2.7 g/dL (3.5-5.0); ALKALINE PHOSPHATASE 109 U/L (32-122); BUN 21 mg/dL (8-22); CALCIUM 8.9 mg/dL (8.8-10.2); CHLORIDE 89 mmol/L (98-107); COSMO 266; CREATININE 0.9 mg/dL (0.7-1.2); GLUCOSE 107 mg/dL (70-104); GOT 124 U/L (10-34); GPT 27 U/L (10-44); POTASSIUM 4.6 mmol/L (3.5-5.1); SODIUM 131 mmol/L (136-145); TCO2 29 mmol/L (25-35); TOTAL BILIRUBIN 11.93 mg/dL (0.20-1.00); TOTAL PROTEIN 7.4 g/dL (6.3-8.3)
[2018-08-31 15:56] LABS: BASO# 0.06 X1000 (0.0-0.2); BASO% 0.4 % (0.0-0.8); EOS# 0.11 X1000 (0.0-0.7); EOS% 0.7 % (0.0-10.0); HEMATOCRIT 28.9 % (42.0-52.0); HEMOGLOBIN 9.6 g/dL (14.0-18.0); IMM GRAN# 0.04 X1000 (0.0-0.04); IMM GRAN% 0.3 % (0.0-0.5); LYMPH# 2.35 X1000 (1.2-3.4); LYMPH% 15.5 % (20.5-51.1); MCH 33.9 PG (27-31); MCHC 33.2 g/dL (33-37); MCV 102.1 FL (81-99); MONO# 1.23 X1000 (0.11-0.59); MONO% 8.1 % (1.7-9.3); MPV 9.1 FL (7.4-10.4); NEUT# 11.38 X1000 (1.4-6.5); PLT 242 X1000 (130-400); RBC 2.83 XMIL (4.7-6.1); RDW 18.8 % (11.5-14.5); WBC 15.17 X1000 (4.8-10.8)
--- NOTE | 2018-08-31 16:20 | PROVIDER DOCUMENTATION ---
This chart was entered by Sally Hernandez Scribe, acting as scribe for Daniel Emerson DO. HPI-General Adult - General Chief Complaint: Weakness Stated Complaint: WEAKNESS / ABOUT TO PASS OUT Time Seen by Provider: 08/31/18 14:41 Source: patient Allergies/Adverse Reactions: Patient Allergies Allergy/AdvReac Type Severity Reaction Status Date / Time No Known Allergies Allergy Verified 08/25/18 17:57 Home Medications: Home Medication List Medication Instructions Recorded Confirmed Last Taken Type Duloxetine HCl 30 mg PO HS 06/30/18 06/30/18 06/29/18 21:00 History Levothyroxine Sodium 50 mcg PO QAM 06/30/18 06/30/18 06/29/18 07:00 History Pantoprazole Sodium 40 mg PO QAM 06/30/18 06/30/18 06/29/18 07:00 History Chlordiazepoxide [Librium] 10 mg PO Q6H #12 cap 07/04/18 Unknown Rx Clindamycin [Cleocin] 300 mg PO Q8HR #18 cap 07/04/18 Unknown Rx Folic Acid 1 mg PO DAILY #60 tab 07/04/18 Unknown Rx Furosemide [Lasix] 20 mg PO DAILY #30 tab 07/04/18 Unknown Rx Lactulose 30 ml PO BID #1 udc 07/04/18 Unknown Rx Multivit,Fe,Ca,FA & Min [Thera M 1 ea PO DAILY #90 tab 07/04/18 Unknown Rx Plus] Pentoxifylline E.r. [Trental] 400 mg PO TID #90 tab 07/04/18 Unknown Rx Spironolactone [Aldactone] 50 mg PO DAILY #30 tab 07/04/18 Unknown Rx Thiamine [Vitamin B-1] 100 mg PO DAILY #90 tab 07/04/18 Unknown Rx - History of Present Illness -Gen Adult Nature of Presenting Problems: 53 year old male presents to the ER with complaint of generalized weakness and N/V for what his mother states is 2 months. Pt has swelling of the abd, jaundice and sore on buttock. Pt lives with parents and is seen at [facility] for liver disease. Pt has a history of alcohol abuse. Location of Pain/Injury: reports: generalized Onset/Duration: reports: gradual Timing: reports: still present Associated Symptoms: reports: fatigue, swelling/mass in abdomen, other (jaundice) Review of Systems - Adult - REVIEW OF SYSTEMS - ADULT Constitutional: reports: fatique. denies: chills, fever Eyes: reports: no symptoms reported Ears, Nose, Mouth & Throat: reports: no symptoms reported Cardiovascular: reports: no symptoms reported Respiratory: reports: no symptoms reported Gastrointestinal: reports: abdominal pain, nausea Genitourinary: reports: no symptoms reported Musculoskeletal: reports: no symptoms reported Integumentary: reports: skin sores/ulcer (buttocks). denies: itching Neurological: reports: no symptoms reported Psychiatric: reports: no symptoms reported Endocrine: reports: change in skin pigment, excessive sweating Hematologic/Lymphatic: reports: no symptoms reported Allergic/Immunologic: reports: no symptoms reported All Other Systems: Reviewed and Negative Past History - Adult - PAST MEDICAL HISTORY-ADULT Review of Records: reports: Nursing Assessment Review, Medications Reviewed Major Childhood Illnesses: reports: denies history Cardiovascular: reports: denies history Respiratory: reports: denies history Gastrointestinal: reports: denies history, hepatitis Obstetrical/Gynecological: reports: denies history Genitourinary: reports: denies history Musculoskeletal: reports: denies history Neurological: reports: denies history Psychiatric: reports: depression Endocrine/Immune: reports: denies history, thyroid disorder (hypo) Other Conditions: reports: denies history, other cancer (skin) - PRIOR SURGERIES/PROCEDURES Surgical/Procedure History: reports: gastric bypass - IMMUNIZATION STATUS Childhood Immunizations: See Nurse Assessment Flu Vaccine: See Nurse Assessment - FAMILY HISTORY Family History: reviewed, not pertinent Physical Exam-General - PHYSICAL EXAM-ADULT Initial Vital Signs Reviewed: Yes - CONSTITUTIONAL General Appearance: alert, no apparent distress - EYES Eyes: PERRL/EOMI, pink conjunctivae - HEAD, EARS, NOSE, MOUTH & THROAT HENMT: normocephalic/atraumatic, moist mucous membranes, normal ENT inspection - NECK Neck: non-tender, normal inspection - RESPIRATORY Respiratory: lungs clear, normal breath sounds - CARDIOVASCULAR Cardiovascular: normal peripheral pulses, regular rate, rhythm - GASTROINTESTINAL (ABDOMEN) Abdominal Exam: distended - MUSCULOSKELETAL Back Exam: normal inspection Extremity: non-tender, normal inspection - SKIN Integumentary: jaundice - NEUROLOGIC Neurologic: grossly normal, no motor/sensory deficits - PSYCHIATRIC Psych/Mental Status: normal mood/affect, normal thought content, normal thought process, oriented x 3 Progress - PLAN OF CARE/RESULTS Progress/Plan/Lab Results: Vital Signs - 8 hr 08/31/18 14:01 Temperature 98.0 F Pulse Rate 103 H Respiratory Rate 18 Blood Pressure 88/58 O2 Sat by Pulse Oximetry 98 Result Diagrams: 08/31/18 15:06 08/31/18 15:00 - EKG 1 Time of EKG reading by physician:: 15:50 EKG Read and Signed by:: Daniel Emerson EKG Interpretation (*Must complete 3 of following elements*): Abnormal Rate: 104 Rhythm: sinus tachycardia with fusion complexes ST Wave: non-specific ST changes - CONSULTS/PCP/HOSPITALIST Notification #1 *Consult/PCP/Hospitalist*: Dr Mederos Time Discussed: 16:19 (Admit to Dr López) Departure - Departure Date of Disposition Decision: 08/31/18 Time of Disposition Decision: 16:20 DIAGNOSIS: Pneumonia, Chronic liver failure Disposition: ADMITTED INPATIENT 09 Certified Medical Emergency: Emergent Condition: Serious Referrals and Follow-Ups: None,PCP [Primary Care Provider] - - Critical Care Note This patient required my direct & personal management of CC.: No Attestation - Physician/ JEAN-CLAUDE Attestation Patient care was provided by Advanced Practice Provider:: No The physician spent face to face time with patient:: Yes Advanced Practice Provider documentation review:: Supervising physician onsite and consulted in the evaluation and care of this patient. The physician did have a face to face encounter with the patient. This chart was documented by the indicated scribe, (Sally Hernandez Scribe) and accurately reflects the services I performed and decisions made by , Daniel Emerson DO, as attested by the provider's signature.
[2018-08-31 16:42] LABS: INR 2.13; PROTIME 25.4 Seconds (11.0-16.0)
[2018-08-31 16:44] LABS: BLOOD TYPE ARTERIAL; SAMPLE BLOOD
[2018-08-31 16:45] LABS: ALLEN TEST NO; BE 11.8 mmoll (-3.0-3.0); HCO3-(ACT) 34.1 mmoll (20.0-26.0); METHB 1.1 % (0.0-1.5); MODALITY CANNULA; O2(CT) 11.2 mL/dL (15.0-23.0); O2HB 93.1 % (95.0-99.0); PCO2(98.6) 38 mmHg (35-45); PO2(98.6) 63 mmHg (60-100); SAO2 97.6 % (95.0-100.0); THB 8.5 g/dL (11.5-17.4)
[2018-08-31 16:47] LABS: pH(98.6) 7.57 (7.35-7.45)
[2018-08-31] MEDS ORDERED: ALBUMIN 25% IV SCH (17:15)
[2018-08-31] MEDS ORDERED: NS 1,000 ML IV ONE (17:22)
[2018-08-31] MEDS ORDERED: ALBUMIN 25% IV ONE (17:25)
[2018-08-31] MEDS ORDERED: VITAMIN K PO ONE (18:03)
[2018-08-31] MEDS: ROCEPHIN 2 GM in NS 50 ML IV SCH (18:07)
[2018-08-31 18:24] LABS: PHOSPHORUS 2.9 mg/dL (2.7-4.5)
--- NOTE | 2018-08-31 19:15 | HISTORY AND PHYSICAL ---
PRIMARY CARE PHYSICIAN: Unknown physician at the [facility]. CHIEF COMPLAINT: Weakness, diarrhea, nausea, and vomiting. HISTORY OF PRESENT ILLNESS: Mr. Nath is a 53-year-old male who has a past medical history of alcoholic cirrhosis of the liver, who has been admitted with acute decompensation recently. He was discharged on 07/04/2018. He presents to the ER today with progressive weakness, nausea, vomiting, and diarrhea. His family reports that he has been more lethargic and confused as of late. He has not had any fever but he has had some mildly increasing shortness of breath. He has not been coughing any mucopurulent sputum. His family also reports that he has had poor oral intake, both with food and with liquid and for the most part anything he does try to take in, he throws up. He does report both dark emesis and stool. He denies any hematochezia or bright red hematemesis. He denies any fever. When he came to the ER today labs were done and he was noted to have multiple metabolic derangements. He is hyponatremic. His bilirubin is 11.9. AST 124. Lactic acid 2.7. He is also anemic with a white count of 15,000. His chest x-ray shows left pleural effusion and the possibility of left lower lobe pneumonia could not be ruled out. He is hypotensive and slightly tachycardic but afebrile. On physical exam he is quite volume depleted and dry. Given the totality of his symptoms and vital signs, we are going to put him in the ICU for further treatment and evaluation. PAST MEDICAL HISTORY: 1. Alcoholic cirrhosis with admissions for acute decompensation, most recently in June of this year. 2. Long-standing alcohol dependence. He reports quitting drinking in June of this year. 3. Hypothyroidism. 4. Depression. 5. Recent infected epidermal inclusion cyst on the scrotum spontaneously drained. 6. GERD. 7. History of gastric ulcers. PAST SURGICAL HISTORY: He has had a Nik-en-Y gastric bypass. SOCIAL HISTORY: He does smoke but he has cut down greatly, only smoking up to three cigarettes a day. He reports quitting drinking four months ago. He denies drug use. He has family at the bedside, his daughter and his mother. ALLERGIES: No known drug allergies. HOME MEDICATIONS: His medication list has not yet been compiled but when he was discharged in June he was on duloxetine 30 mg at bedtime, levothyroxine 50 mcg in the morning, Protonix 40 mg in the morning, pentoxifylline 400 mg p.o. three times a day, Aldactone 50 mg daily, lactulose 30 mL p.o. twice a day, Lasix 20 mg daily, multivitamin one daily, thiamine 100 mg p.o. daily. REVIEW OF SYSTEMS: A 10-point review of systems was obtained and found to be negative with the exception of the HPI. PHYSICAL EXAMINATION: VITAL SIGNS: Blood pressure is 102/60, heart rate 102, respiratory rate 18, O2 saturation 98% on room air. Temperature is 98 degrees Fahrenheit. GENERAL: This is a disheveled, chronically ill, 53-year-old male lying in hospital bed in no acute distress. NEUROLOGICAL: The patient is somewhat lethargic but opens his eyes spontaneously. He follows commands without focal deficits. He is oriented. He does occasionally start to nod off during interview. HEENT: Head is atraumatic and normocephalic. Pupils are equal, round and reactive to light. Sclerae are icteric. Oral mucosa is dry and pale. NECK: Supple. Trachea is midline. No appreciable JVD. CHEST: Crackles over the left lung base and diminished throughout on both sides. CARDIOVASCULAR: Regular rate and rhythm. S1 and S2 are noted. There are no appreciable murmurs. GASTROINTESTINAL: Distended and diffusely tender to palpation. There is no rigidity. Bowel sounds are hypoactive. GENITOURINARY: Scrotum was evaluated. There was no sign of infection, abscess, redness, or drainage. EXTREMITIES: Trace edema. Pulses are diminished 1+ bilaterally. SKIN: Overall the patient is jaundiced. He has dry skin with generalized petechiae. DIAGNOSTIC DATA: WBC 15.17, hemoglobin 9.6, hematocrit 28.9, MCV 102.1, platelet count 242. INR 2.13. PT 25.4. ABG on nasal cannula: pH 7.57, CO2 38, O2 63, bicarbonate 34.1. Sodium 131, potassium 4.6, chloride 89, CO2 29, anion gap 13, BUN 21, creatinine 0.9, glucose 107, calcium 8.9, bilirubin 11.93, AST 124, ALT 27, alkaline phosphatase 109, ammonia 29. Troponin negative. Albumin 2.7. Lactate 2.7. Alcohol level is 0. ASSESSMENT AND PLAN: 1. Decompensated cirrhosis of the liver: Will administer intravenous albumin and intravenous fluids as he is volume depleted. We will reevaluate his volume status in the morning and also check an abdominal ultrasound for possible paracentesis with fluid evaluation. He does have abdominal pain with a white count so we will treat him prophylactically for spontaneous bacterial peritonitis with Rocephin 2 grams every 24 hours. Will continue the pentoxifylline and continue supportive therapy. Will also consult Gastroenterology. 2. Intravascular volume depletion: As above, the patient is severely protein malnourished, which is clearly decreasing his oncotic pressure, leading to an overall intravascular volume depletion. Hopefully, we can restore some of that vascular volume with albumin and intravenous fluids. We will be monitoring his fluid status closely. He does have a metabolic alkalosis which is consistent with dehydration. 3. Coagulopathy: The patient's INR is 2.1. Will add vitamin K and check PT/INR daily. 4. Left large pleural effusion: The patient has had this same effusion for quite some time and is more than likely secondary to his low protein state. There is question of pneumonia but he does not have a cough with mucopurulent sputum. No fever. Will try to pull some of that fluid off with the albumin. If no improvement he may need thoracentesis for better evaluation. Will check a chest x-ray in the morning. 5. Macrocytic anemia: Continue his folic acid and multivitamin. 6. Prognosis: The patient has a model for end-stage liver disease score of 24, discriminatory function score of 78, and is Child-Espinoza class C. His prognosis is extremely poor. If the patient does not improve in the near future it may be appropriate to discuss possible hospice or palliative care. 7. Deep venous thrombosis prophylaxis with sequential compression devices. Further recommendations to follow. Dictated by DIANDRA Gutierrez for Hero López MD cc: DIANDRA Gutierrez MD
[2018-08-31 19:35] LABS: URINE SOURCE CLEAN CATCH
[2018-08-31 19:44] LABS: BILIRUBIN URINE MODERATE (NEGATIVE); BLOOD URINE SMALL (NEGATIVE); COLOR ORANGE; GLUCOSE URINE NEGATIVE (NEGATIVE); KETONE URINE NEGATIVE (NEGATIVE); LEUKOCYTES URINE NEGATIVE (NEGATIVE); NITRITE URINE NEGATIVE (NEGATIVE); PH URINE 5.5; PROTEIN URINE TRACE mg/dL (NEGATIVE); SP GRAVITY URINE 1.023; TURBIDITY URINE HAZY (CLEAR); UROBILINOGEN URINE 2 mg/dL (NORMAL)
[2018-08-31 19:45] LABS: UR EPITHELIAL CELLS <10 /HPF (<10); URINE BACTERIA NEGATIVE /HPF; URINE RBC <10 /HPF (<10); URINE WBC <10 /HPF (<10)
[2018-08-31 20:01] LABS: UR AMPHETAMINES QUAL NONE DETECTED (NONE DETECT); UR BARBITUATES QUAL NONE DETECTED (NONE DETECT); UR BENZODIAZEPIN QUAL PRESUMPTIVE POSITIVE (NONE DETECT); UR CANNABINOIDS QUAL NONE DETECTED (NONE DETECT); UR COCAINE QUAL NONE DETECTED (NONE DETECT); UR METHADONE QUAL NONE DETECTED (NONE DETECT); UR OPIATES QUAL NONE DETECTED (NONE DETECT); UR OXYCODONE QUAL NONE DETECTED (NONE DETECT); UR PCP QUAL NONE DETECTED (NONE DETECT)
[2018-08-31] MEDS ORDERED: MOTRIN PO PRN (21:10)
[2018-08-31] MEDS: CYMBALTA PO SCH (21:22)
[2018-09-01] MEDS: ZOFRAN IV PRN ×2 (03:06→07:26)
[2018-09-01] MEDS: SYNTHROID PO SCH (06:00)
[2018-09-01 06:13] LABS: AGAP 11; ALB/GLOB RATIO 0.9; ALBUMIN 3.1 g/dL (3.5-5.0); ALKALINE PHOSPHATASE 85 U/L (32-122); BUN 22 mg/dL (8-22); CALCIUM 8.6 mg/dL (8.8-10.2); CHLORIDE 93 mmol/L (98-107); COSMO 269; CREATININE 0.8 mg/dL (0.7-1.2); ESTIMATED GFR > 60; GLUCOSE 94 mg/dL (70-104); GOT 63 U/L (10-34); GPT 18 U/L (10-44); POTASSIUM 3.2 mmol/L (3.5-5.1); SODIUM 133 mmol/L (136-145); TCO2 29 mmol/L (25-35); TOTAL BILIRUBIN 10.89 mg/dL (0.20-1.00); TOTAL PROTEIN 6.5 g/dL (6.3-8.3)
[2018-09-01 06:25] LABS: INR 2.39; PROTIME 27.8 Seconds (11.0-16.0)
[2018-09-01] MEDS ORDERED: PROTONIX PO SCH (07:00)
[2018-09-01 07:46] LABS: BASO# 0.03 X1000 (0.0-0.2); BASO% 0.3 % (0.0-0.8); EOS# 0.13 X1000 (0.0-0.7); EOS% 1.4 % (0.0-10.0); HEMATOCRIT 23.3 % (42.0-52.0); HEMOGLOBIN 7.5 g/dL (14.0-18.0); IMM GRAN# 0.03 X1000 (0.0-0.04); IMM GRAN% 0.3 % (0.0-0.5); LYMPH# 1.52 X1000 (1.2-3.4); LYMPH% 15.8 % (20.5-51.1); MCH 33.8 PG (27-31); MCHC 32.2 g/dL (33-37); MONO# 1.02 X1000 (0.11-0.59); MONO% 10.6 % (1.7-9.3); MPV 8.9 FL (7.4-10.4); NEUT# 6.88 X1000 (1.4-6.5); NEUT% 71.6 % (42.2-75.2); PLT 139 X1000 (130-400); RBC 2.22 XMIL (4.7-6.1); RDW 19.2 % (11.5-14.5); WBC 9.61 X1000 (4.8-10.8)
[2018-09-01] MEDS ORDERED: CALMOSEPTINE OINTMENT TOP PRN (08:02)
--- NOTE | 2018-09-01 09:20 | EKG Report ---
Test Performed on : 08/31/2018 2:12:47 PM Test Reason : ED. No order in [place] Blood Pressure : / mmHG Vent. Rate : 104 BPM Atrial Rate : 104 BPM P-R Int : 144 ms QRS Dur : 062 ms QT Int : 334 ms P-R-T Axes : 030 018 267 degrees QTc Int : 439 ms Sinus tachycardia. with fusion complexes Low voltage QRS Nonspecific ST and T wave abnormality Abnormal ECG When compared with ECG of 25-AUG-2018 15:16, (Unconfirmed) fusion complexes are now present QT has shortened Unconfirmed Result
[2018-09-01] MEDS ORDERED: NS 1,000 ML IV SCH (09:45)
[2018-09-01] MEDS: VITAMIN K 10 MG in NS 50 ML IV SCH (09:51)
[2018-09-01] MEDS: SANDOSTATIN 500 MICROGM in D5W 100 ML IV SCH ×2 (10:00→20:55)
[2018-09-01] MEDS: PROTONIX 80 MG in NS 80 ML IV SCH ×2 (10:00→20:55)
[2018-09-01] MEDS ORDERED: SODIUM CHLORIDE 0.9% INJ PRN (10:02)
[2018-09-01] MEDS ORDERED: PHENERGAN IV PRN (10:02)
[2018-09-01] MEDS ORDERED: NS 250 ML ONE (10:36)
--- NOTE | 2018-09-01 10:54 | PROGRESS NOTE ---
DATE: 09/01/2018 SUBJECTIVE: This morning, Mr. Nath is seen in the ICU. There was no family member at the bedside. He is awake, alert, but he gets in and out of some confusion. Occasionally, he will drift off to sleep while talking. On the whole, however, he said he feels a little stronger than he was yesterday. He is still nauseating and he is complaining of some abdominal discomfort. OBJECTIVE: Vital Signs: Blood pressure is 96/54, pulse is 99, respirations are 25, temperature is 98.6 degrees, the patient is saturating 98%. General Examination: Mr. Nath is a 53-year-old, gentleman. He is in bed. He did not seem to be in any distress. HEENT: Mucosa is pink, is dry. Positive icteric. Chest: Air entry is bilaterally reduced, but I did not hear any crepitations. Cardiovascular: Regular rate and rhythm. No murmurs, no rubs, no gallops. GI: Abdomen is soft. It is remarkably distended with collateral circulation on the abdominal wall. It is mildly tender on palpation of all quadrants. There is an old midline surgical scar. Bowel sounds are present but hypoactive. Extremities: No pedal edema. Distal pulses are present. PRODUCT REPRESENTATIVE: Patient is slightly lethargic. However, he sustained reasonable conversation. He will drift every now and then into sleeping. You have to keep getting his attention. Laboratory Data: WBC is down to 9.61, hemoglobin is 7.5, platelet count of 139,000. Chemistry is also reviewed. Sodium is 133, potassium is 2.2, chloride is 93. The patient's bilirubin is down to 10.89, AST is down to 62, ALT is normal. A chest x-ray yesterday did show left lower lobe effusion and lower lobe pneumonia. ASSESSMENT: 1. Cirrhosis of the liver complicated with ascites. 2. Generalized weakness and deconditioning on presentation, I think partly because of intravascular depletion and possible infectious etiology. 3. Cirrhosis-induced coagulopathy. 4. Ascites with a left pleural effusion with pending paracentesis this morning. 5. 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 6. Hepatitis, presumably alcohol-induced. The patient has a discriminating score for disease severity of above 70. Because of the suspicion of infection, we cannot use steroids but he is currently on pentoxifylline. 7. Macrocytic anemia. The patient's all numbers reduced this morning. And there is concern for precipitated gastrointestinal bleed so he has been started on octreotide, proton pump inhibitor drip, and we will give him one time dose of fresh frozen plasma. PLAN: In general, Mr. Nath is critically sick. He has decompensated cirrhosis of the liver complicated with coagulopathy and ascites. He seems also to have some altered mentation. Unsure if it is associated with hepatic encephalopathy or something else. We are going to try and get him to IR for a paracentesis and send the fluid for analysis. We will also do a CT scan of the abdomen to rule out any intra-abdominal pathology that could explain his abdominal pain. I have discussed this plan with the patient and I have also spoken directly with the GI doctor (Dr. Topete). cc: Hero López MD MTDD
[2018-09-01] MEDS ORDERED: ALBUMIN 25% IV SCH (11:15)
[2018-09-01] MEDS: FOLIC ACID PO SCH (13:01)
[2018-09-01] MEDS: TRENTAL PO SCH ×3 (13:02→21:39)
[2018-09-01] MEDS: THERA M PLUS PO SCH (13:02)
--- NOTE | 2018-09-01 13:57 | GASTROENTEROLOGY CONSULTATION ---
DATE: 09/01/2018 REFERRING PHYSICIAN: Hero López MD PRIMARY CARE DOCTOR: None. REASON FOR REQUEST: Decompensated liver cirrhosis. Ascites. HISTORY OF PRESENT ILLNESS: Mr. Nath is a 53-year-old male who was admitted on 08/31/2018 for weakness, diarrhea, nausea and vomiting. The patient has history of alcoholic liver cirrhosis. He was recently discharged on 07/04/2018. According to the patient, he has been feeling weak and having nausea, vomiting and diarrhea for the last few weeks. It has make made him weaker. In the hospital on admission, he was noted to be hyponatremic and jaundiced with a total bilirubin of 11.9 and elevated liver enzymes. He was noted to have a white count of 15,000. He also complained of abdominal pain in the periumbilical region with abdominal distention. Imaging in the past in June 2018 did show evidence of severe liver cirrhosis with extensive hepatic necrosis, ascites, splenomegaly, right nephrolithiasis, diverticulosis coli, mesenteric and periportal adenopathy and large left pleural effusion, and left lower lobe atelectasis. No CT scans were done during this admission. I am concerned about possible spontaneous bacterial peritonitis. The patient describes having frequent nausea, vomiting, and describes coffee grounds. He is also having intermittent dark stools. PAST MEDICAL HISTORY: Gastric bypass, Nik-en-Y done 20 years ago. Alcoholism. Alcoholic liver cirrhosis. Splenomegaly. Ascites. Diverticulosis of the colon. PAST SURGICAL HISTORY: Nik-en-Y gastric bypass. FAMILY HISTORY: His brother and sister are both alcoholics. No family history of liver disease or GI malignancy. SOCIAL HISTORY: Smokes 3 to 4 cigarettes per day. He discontinued alcohol in June. He denies any history of drug abuse. ALLERGIES: No known drug allergies. MEDICATIONS IN THE HOSPITAL: 1. Cymbalta. 2. Folic acid. 3. Synthroid. 4. Calmoseptine ointment. 5. Multivitamin. 6. Normal saline 75 mL/hour. 7. I started him on octreotide drip and Protonix drip. 8. Zofran 4 mg IV every 4 hours as needed. 9. Pentoxifylline 4 mg 3 times daily. 10. Vitamin K 10 mg IV daily for 3 days. 11. Phenergan 12.5 mg IV every 4 hours as needed. 12. Ceftriaxone 2 g IV once daily. 13. Albumin was given 100 g once yesterday. REVIEW OF SYSTEMS: Denies any fevers, rigors or chills. He complains of feeling weak, tired, and generalized malaise. He complains of nausea and vomiting, coffee-ground emesis. He also complains of discomfort in the periumbilical region. He complains of diarrhea. He does complain of dark stools. He denies any neurologic complaints. PHYSICAL EXAMINATION: Vitals: Temperature of 98.6 degrees, pulse rate of 99, respiratory rate 20, blood pressure of 96/54, saturating 99% 2 L nasal cannula. General: Moderately built, moderately nourished, lying in bed, in no acute distress. HEENT: Positive pallor. Positive icterus. Pupils equal, reactive to light. Neck: Supple. Abdomen: Distended, discomfort in the periumbilical region. No rebound or guarding. Extremities: No cyanosis, clubbing. He also has fluid in the lower extremities. Also showed anasarca. Neurologic: He is awake, alert. Answers simple questions. BODY WEIGHT: 197 pounds 7 ounces. BMI 29.2 kg/m2. LABORATORIES: Hemoglobin and hematocrit is 7.5 and 23.3, white count 9.61, platelet count of 139,000, MCV of 105. Sodium of 132, potassium 3.2, chloride 93, bicarb 29, anion gap 11, BUN of 22, creatinine 0.8, glucose of 94, calcium is 8.6, magnesium 2. Total bilirubin is 10.89. AST 63, ALT 18, alkaline phosphatase 85. Total protein 6.5. Albumin of 3.1. B12 of more than 2000. Folate of more than 40. PT of 27.8. INR of 2.39. Urine toxicology screen is positive for benzodiazepines. Urinalysis showing trace protein and small blood, moderate bilirubin. ABG showing pH of 7.57, pCO2 of 38, PO2 of 63. This is on 2 L nasal cannula. His lactate was 2. Blood cultures were drawn. They are currently pending from yesterday. Chest x-ray showed left pleural effusion and left lower lobe pneumonia. IMPRESSION/PLAN: 1. Decompensated alcoholic liver cirrhosis complicated with ascites. I am concerned about a spontaneous bacterial peritonitis. He is scheduled for paracentesis today. We will give him vitamin K. We will keep him on ceftriaxone. We will start him on albumin 50 g IV once daily for 3 days. We will continue to follow closely. 2. Hepatic encephalopathy. We will check ammonia. We will start him on lactulose once or twice daily. We will start him on Xifaxan 550 mg p.o. b.i.d. I will hold lactulose for more than 3 bowel movements in 24 hours. 3. Gastrointestinal bleed. He is having coffee-ground emesis and melena. I will continue to watch hemoglobin and hematocrit and transfuse to keep the hematocrit around 23%. We will continue him on Protonix drip and octreotide drip. He may need a repeat EGD once he is stabilized. 4. Alcoholic hepatitis. We will continue him on Trental 400 mg 3 times daily. 5. Macrocytic anemia, likely secondary to alcoholic liver disease. His B12 and folate are normal. In fact they are high. 6. Splenomegaly. Likely secondary to liver cirrhosis. 7. Coagulopathy. Current INR is more than 2. We will give him vitamin K. 8. Protein calorie malnutrition. Continue to watch for now. Hopefully once he can start orally, we can start him on Ensure 3 times daily. 9. Large left-sided pleural effusion and possible pneumonia. He is on antibiotics. He may need thoracocentesis to be managed per the primary team. 10. GI prophylaxis with proton pump inhibitors. 11. The Primary Care Team has ordered imaging in the form of CT scan. We will review that. He has also been ordered for ultrasound-guided paracentesis. 12. Hypothyroidism. He is on levothyroxine once daily. 13. The above plans were discussed with the patient and the nursing staff and all questions were answered. I also spoke with Dr. López in the ICU. All questions were answered. Please call us with any further questions. We will follow along. Thank you for allowing us to follow with your patient. cc: MD Hero Kimble MD MTDD
--- NOTE | 2018-09-01 15:09 | Diag Imaging Result Doc PS360 ---
EXAM: CT ABD/PELVIS W/IV CONT ONLY INDICATION: abdomen pain/NV TECHNIQUE: This exam was performed using automated exposure control, adjustment of mA or kV according to patient size, and/or use of iterative reconstruction technique. COMPARISON: 07/01/2018 FINDINGS: There is a large left pleural effusion and prominent left basilar atelectasis. There is a trace right effusion and minimal right basilar atelectasis. There is large volume ascites throughout the abdomen and pelvis. The liver contour is somewhat nodular and the liver is slightly heterogeneous suggesting cirrhosis. No well-defined hepatic mass is identified. The liver is less heterogeneous than the previous study. There is stable splenomegaly. There are dilated abdominal varices suggesting portal hypertension. There is stable adrenal nodules that statistically most likely represent adenomas. The pancreas is somewhat atrophic but stable. There is a nonobstructing intrarenal stone in the right kidney. Kidneys are unremarkable, otherwise. The urinary bladder is unremarkable. There is mild uncomplicated diverticulosis coli. The colonic wall appears mildly thickened throughout. However, this probably due to chronic fatty infiltration of the colonic wall as well as the surrounding ascites. A component of colitis is possible in the right clinical scenario. There are postsurgical changes associated with the stomach, stable. The remainder of the GI tract is essentially unremarkable. Mildly prominent mesenteric and periportal lymph nodes are stable. IMPRESSION: 1.Large volume ascites. 2.Cirrhotic liver as described the hepatic parenchyma is less heterogeneous than the previous study, however. 3.Stable splenomegaly with abdominal varices. 4.Large left pleural effusion and trace right effusion. 5.Mildly thickened colonic wall. Please see above discussion. 6.Mild mesenteric and periportal lymphadenopathy that is unchanged. Electronically signed by Shaan Duke 09/01/2018 3:07 PM
[2018-09-01 15:17] LABS: INR 2.03; PROTIME 24.4 Seconds (11.0-16.0)
[2018-09-01] MEDS ORDERED: ATIVAN IV PRN (16:53)
[2018-09-01] MEDS ORDERED: ATIVAN IV ONE (16:53)
[2018-09-01] MEDS: ROCEPHIN 2 GM in NS 50 ML IV SCH (17:05)
[2018-09-01] MEDS: LACTULOSE PO SCH (21:38)
[2018-09-01] MEDS: CYMBALTA PO SCH (21:38)
[2018-09-01] MEDS: XIFAXAN PO SCH (21:39)
[2018-09-02 05:29] LABS: INR 2.13; PROTIME 25.4 Seconds (11.0-16.0)
[2018-09-02 05:38] LABS: AGAP 11; ALB/GLOB RATIO 1.2; ALBUMIN 3.3 g/dL (3.5-5.0); ALKALINE PHOSPHATASE 77 U/L (32-122); BUN 15 mg/dL (8-22); CALCIUM 7.9 mg/dL (8.8-10.2); CHLORIDE 96 mmol/L (98-107); COSMO 277; CREATININE 0.7 mg/dL (0.7-1.2); ESTIMATED GFR > 60; GLUCOSE 110 mg/dL (70-104); GOT 52 U/L (10-34); GPT 16 U/L (10-44); POTASSIUM 2.9 mmol/L (3.5-5.1); SODIUM 138 mmol/L (136-145); TCO2 31 mmol/L (25-35); TOTAL BILIRUBIN 10.62 mg/dL (0.20-1.00); TOTAL PROTEIN 6.1 g/dL (6.3-8.3)
[2018-09-02 05:39] LABS: BASO# 0.05 X1000 (0.0-0.2); EOS# 0.14 X1000 (0.0-0.7); EOS% 2.7 % (0.0-10.0); HEMOGLOBIN 6.4 g/dL (14.0-18.0); LYMPH# 0.92 X1000 (1.2-3.4); LYMPH% 17.5 % (20.5-51.1); MCV 106.4 FL (81-99); MONO# 0.48 X1000 (0.11-0.59); MONO% 9.1 % (1.7-9.3); MPV 8.8 FL (7.4-10.4); NEUT# 3.66 X1000 (1.4-6.5); NEUT% 69.7 % (42.2-75.2); PLT 113 X1000 (130-400); RBC 1.88 XMIL (4.7-6.1); RDW 19.6 % (11.5-14.5); WBC 5.25 X1000 (4.8-10.8)
[2018-09-02] MEDS: PROTONIX 80 MG in NS 80 ML IV SCH (05:44)
[2018-09-02] MEDS: SANDOSTATIN 500 MICROGM in D5W 100 ML IV SCH (05:45)
[2018-09-02] MEDS: SYNTHROID PO SCH (06:29)
[2018-09-02] MEDS ORDERED: POTASSIUM CHLORIDE 40 MEQ/SWI 40 MEQ/100 ML IVPB IV ONE ×2 (08:59→12:15)
[2018-09-02] MEDS: LACTULOSE PO SCH (09:04)
--- NOTE | 2018-09-02 09:23 | PROGRESS NOTE ---
DATE: 09/02/2018 PRIMARY CARE PHYSICIAN: None. SUBJECTIVE: Mr. Nath presented on 08/31/2018 with weakness, diarrhea, nausea, vomiting. He has an unknown physician at the [facility]. A 53-year-old with past medical history of alcoholic cirrhosis of the liver, has been admitted with acute decompensation recently, discharged on 07/04/2018. Presented to the emergency room with progression of weakness, nausea, vomiting, and diarrhea. The family reports that he has been more lethargic and confused. He has not had any fever, but he has had some mildly increased shortness of breath. He has been coughing up some mucopurulent sputum. Family also reports he has had poor p.o. intake both with food and liquid for the most part, and he does try to take again food and liquid, but he throws it up, but does report dark emesis and dark stools. Denies any hematochezia or bright red blood in the hematemesis. Presented to the emergency room with multiple metabolic derangements, hyponatremia. Bilirubin was 11, AST 124. Lactic acid 2.7. He had anemia. White count was [address]. X-ray showed a left pleural effusion, possibility of left lower lobe pneumonia. Does have a history of hypothyroidism, long-standing alcohol dependence, depression, infected epidermal inclusion cyst in the scrotum which spontaneously drained, gastroesophageal reflux disease and history of gastric ulcer. He was sleeping, easy to arouse, requested something to drink but then fell asleep again fairly quickly. OBJECTIVE: Vital signs: Temperature 98 degrees, pulse 95, respirations 27, blood pressure 106/67. HEENT: Pupils are equal and round. Lungs: Clear in all lung pink. Cardiovascular: Regular rhythm and rate without murmur or S3. Genitourinary: Urine output is 1800 mL. IMAGING: Abdominal and pelvic CT showed large volume ascites, cirrhotic liver. Hepatic parenchyma is less heterogeneous than the previous study. Stable splenomegaly, abdominal varices, large left pleural effusion, trace right effusion. Mild thickened colonic wall. Mild mesenteric and periportal lymphadenopathy which is unchanged. ASSESSMENT AND PLAN: 1. Cirrhosis of the liver complicated with ascites. 2. General weakness and deconditioning, felt partly because of intravascular volume depletion. 3. Cirrhosis-induced coagulopathy. 4. Ascites with left pleural effusion and I believe he underwent paracentesis although I do not see a report on that. 5. He has a large left-sided pleural effusion, possible pneumonia. He is on antibiotics. May need thoracentesis. 6. Macrocytic anemia. 7. Alcoholic hepatitis. He presented with hepatic encephalopathy. He is on Xifaxan 550 mg b.i.d. and lactulose as well. 8. Protein calorie malnutrition. Hopefully, we can start p.o. intake, Ensure 3 times a day. He is on proton pump inhibitor for GI prophylaxis. 9. He has a history of hypothyroidism. He gets levothyroxine once a day. 10. Note that his hematocrit was 20, hemoglobin 6.4, so he may need some blood as well. 11. He had hypokalemia again this morning. We are going to see about supplementing some potassium. REVIEW OF ORDERS: The patient has been getting albumin 25%, 50 g q.24 hours. He is on Cymbalta 30 mg q.a.m., folic acid 1 mg daily, lactulose 30 mL b.i.d., Synthroid 50 mcg daily, gets Ativan p.r.n. 1 mg IV q.4 hours, and multivitamin. We have him on octreotide drip, pentoxifylline ER 400 mg 3 times a day, on a Protonix IV drip, Xifaxan 550 mg b.i.d., and normal saline at 75 mL an hour. cc: Roberto Sosa MD
[2018-09-02] MEDS: NS 500 ML IV SCH ×2 (09:31→18:07)
[2018-09-02] MEDS: THERA M PLUS PO SCH (09:39)
[2018-09-02] MEDS: CYMBALTA PO SCH (09:39)
[2018-09-02] MEDS: FOLIC ACID PO SCH (09:39)
[2018-09-02] MEDS: TRENTAL PO SCH (09:39)
[2018-09-02] MEDS: XIFAXAN PO SCH (09:39)
[2018-09-02] MEDS: VITAMIN K 10 MG in NS 50 ML IV SCH (10:51)
--- NOTE | 2018-09-02 11:02 | PROVIDER PROGRESS NOTE ---
Progress Note SUBJECTIVE: No acute overnight events. Patient denies N/V/F, hematemesis, SOB, CP. He reports abdominal discomfort and distension. He has not had LVP yet. OBJECTIVE: Last Vital Signs Temp 98.7 F 09/02/18 09:43 Pulse 94 H 09/02/18 09:43 Resp 26 H 09/02/18 09:43 BP 107/66 09/02/18 09:43 Pulse Ox 97 09/02/18 09:43 Height 5 ft 9 in Weight 197 lb 7 oz GEN: chronically ill-appearing, NAD HEENT: icteric, MMM CV: tachycardic, regular PULM: decreased BS at bases ABD: obese, distended, diffuse TTP, BS present; +ascites EXT: no cce NEURO: CNII-XII grossly intact; no asterixis, AAOx3 SKIN: jaundice LABS 09/02/18 09/02/18 09/02/18 04:55 04:55 04:55 WBC 5.25 Hgb 6.4 L Plt Count 113 L INR 2.13 Sodium 138 Potassium 2.9 L Chloride 96 L Carbon Dioxide 31 BUN 15 Creatinine 0.7 Glucose 110 H Total Bilirubin 10.62 H AST 52 H ALT 16 Alkaline Phosphatase 77 Total Protein 6.1 L Albumin 3.3 L Albumin/Globulin Ratio 1.2 CT A/P 09/01 IMPRESSION: 1.Large volume ascites. 2.Cirrhotic liver as described the hepatic parenchyma is less heterogeneous than the previous study, however. 3.Stable splenomegaly with abdominal varices. 4.Large left pleural effusion and trace right effusion. 5.Mildly thickened colonic wall. Please see above discussion. 6.Mild mesenteric and periportal lymphadenopathy that is unchanged. A/P: Mr. Kenroy Nath is a 53-year-old gentleman who presents with worsening decompensated alcoholic cirrhosis, complicated by ascites and jaundice. He presents with hematemesis. Other notable findings on his labs include macrocytic anemia ,coagulopathy, hypokalemia. # Decompensated alcoholic cirrhosis: - Cirrhosis: ETOH-related; CP-C; MELD-Na 25 - Ascites: large ascites; diagnostic and therapeutic LVP, will need albumin administration with >3L (6-8gm/L removed) - HE: none prior; stopped lactulose and rifaximin - EV: EGD tomorrow; prior EGD in 2018 was negative for varices - HCC: no evidence of hepatoma on imaging; repeat liver US every 6 months - OLT: not a candidate for transplant given active ETOH use within 6 months #Hematemesis: on octreotide drip, PPI BID, NPO; plan for diagnostic EGD tomorrow once hgb is >7, trend H/H daily, goal H/H 7-8 # Macrocytic anemia: normal iron studies, B12, folate on last admission; hematemesis; recommend transfuse 1 unit pRBC today # Coagulopathy: INR 2.0; on vitamin K 10mg IV day 2 of 3; trend INR daily; no indication for FFP # Left pleural effusion: will start diuretics tomorrow after LVP and EGD # Thrombocytopenia secondary to splenomegaly. # Severe protein calorie malnutrition, likely secondary to alcoholism and cirrhosis. Nutrition as above. # Hypokalemia: relete prn # Alcoholism: patient has not drank any alcohol for 4 months; utox negative for ethanol We will follow with you. Please call with any questions or concerns.
[2018-09-02] MEDS: THIAMINE 100 MG in NS 50 ML IV SCH (11:41)
--- NOTE | 2018-09-02 13:09 | DISCHARGE SUMMARY ---
ADMISSION DATE: 08/31/2018 DISCHARGE DATE: 09/03/2018 INDICATION: Plan to transfer him to the [facility]. HOSPITAL COURSE: This is a 53-year-old who presented on discharge plan to transfer on 09/03/2018. He has no primary care physician here, sees a physician at the [facility]. A 53-year-old male past medical history of alcoholic cirrhosis of the liver is admitted with acute decompensation recently. He was discharged from this hospital on 07/04/2018. He presented to the emergency room on 08/31/2018 with progressive weakness, nausea, vomiting, diarrhea. Family reports that he has been more lethargic and confused of late. He has had not had any fever, but he has had some mildly increased shortness of breath, had been coughing, had not been coughing any mucopurulent sputum. Family also reported that he has had poor p.o. intake, both food and liquid does not seem to want to stay down. A lot of nausea, throwing up. Does report he has dark emesis in the stool. Denies hematochezia or bright red hematemesis and denied any fever. When he arrived to the emergency room labs were done. Noted he had multiple metabolic derangements, had hyponatremia. Bilirubin was 19, AST 124. Lactic acid 2.7. Also, white count was 15,000 and anemia was noted. Chest x-ray showed left pleural effusion and possible left lower lobe pneumonia could not be ruled out. He was a little bit hypotensive and slightly tachycardic, but afebrile. PAST MEDICAL HISTORY: Again reviewed: 1. Alcoholic cirrhosis with admission for acute decompensation, most recently in June of this year at this hospital I believe. 2. Long-standing alcohol dependence. Reports quit drinking in June of this year. 3. Hypothyroidism. 4. Depression. 5. Recent infected epidermal inclusion cyst in the scrotum, which spontaneously drained by report. 6. Gastroesophageal reflux disease. 7. History of gastric ulcers. PAST SURGICAL HISTORY: 1. He has had a Nik-en-Y bypass several years ago. So, admission diagnosis decompensated cirrhosis of the liver. Plan was to give IV fluids and albumin. Re-evaluate his volume status. Check an abdominal ultrasound for possible paracentesis. Did have an elevated white count and so we did plan to treat him prophylactically for spontaneous bacterial peritonitis. We started him on Rocephin 2 g IV q.24 hours. 2. Intravascular volume depletion. The patient was severely protein malnourished. Increased oncotic pressure leading to overall intravascular volume depletion. So, the plan was to give him back some fluid and some albumin and monitor his fluid status. 3. Coagulopathy. INR was 2.1 related to his liver dysfunction. 4. Left large pleural effusion. Could not rule out pneumonia. Had him on Rocephin for possible pneumonia. 5. Macrocytic anemia. Continue folic acid and multivitamin. 6. He has a model for end-stage liver disease score 24. Discriminatory function score was 78 and Child Espinoza class C. Prognosis based on that was poor, but plan to treat him also for hepatic encephalopathy and the patient showed improvement. Abdominal and pelvic CT done on admission, 1. Large volume ascites. 2. Cirrhotic liver, described as hepatic parenchyma is less heterogeneous than previous study, however, the previous study was done. I think his comparison was on 07/01/2018. Stable splenomegaly and abdominal varices. Large left pleural effusion. Trace right effusion. Mildly thickened colonic wall. Mild mesenteric and periportal lymphadenopathy. The patient remained stable. DISCHARGE DIAGNOSES: 1. Decompensated alcoholic cirrhosis which was ethanol related and has chronic hepatitis C. His MELD score was 25. 2. Ascites. Large ascites. He was getting albumin and given some fluids. He has not had a history of prior hepatic encephalopathy, so stop the lactose, 3. Esophageal varices. The plan was to do an EGD. EGD was negative in 2018 for varices. 4. Hepatitis C. No evidence of hematoma on imaging. Plan was to repeat an ultrasound every 6 months. No evidence of hepatoma at this point. So we will hope to transfer him to the [facility]. We will continue on his current medication. CURRENT MEDICATION: He is getting ceftriaxone 2 g IV q.24 hours, Cymbalta 30 mg q.a.m., folic acid 1 mg a day, Synthroid 50 mcg a day, Ativan 1 mg IV q.4 hours p.r.n., Protonix 40 mg IV q.12, Thytonadione 10 mg daily and thiamine 100 mg which I think he is getting IV daily. LABORATORY DATA: Today: White count 5250, hematocrit 20, hemoglobin 6.4, platelet count 113,000. Sodium 138, potassium 2.9, chloride 96, BUN 15, creatinine 0.7, and will give him some potassium today and transfer him to the floor. Continue normal saline at 75 mL an hour. cc: Roberto Sosa MD MTDD
[2018-09-02] MEDS: ROCEPHIN 2 GM in NS 50 ML IV SCH ×2 (18:07→21:15)
[2018-09-03] MEDS: SYNTHROID PO SCH (06:14)
[2018-09-03 06:46] LABS: BASO# 0.03 X1000 (0.0-0.2); BASO% 0.5 % (0.0-0.8); EOS# 0.16 X1000 (0.0-0.7); EOS% 2.7 % (0.0-10.0); HEMATOCRIT 22.3 % (42.0-52.0); HEMOGLOBIN 7.1 g/dL (14.0-18.0); IMM GRAN# 0.04 X1000 (0.0-0.04); IMM GRAN% 0.7 % (0.0-0.5); LYMPH# 1.37 X1000 (1.2-3.4); LYMPH% 23.5 % (20.5-51.1); MCH 32.7 PG (27-31); MCHC 31.8 g/dL (33-37); MCV 102.8 FL (81-99); MONO# 0.73 X1000 (0.11-0.59); MONO% 12.5 % (1.7-9.3); MPV 8.9 FL (7.4-10.4); NEUT# 3.49 X1000 (1.4-6.5); NEUT% 60.1 % (42.2-75.2); PLT 111 X1000 (130-400); RBC 2.17 XMIL (4.7-6.1); RDW 23.4 % (11.5-14.5); WBC 5.82 X1000 (4.8-10.8)
[2018-09-03 06:47] LABS: INR 1.96; PROTIME 23.8 Seconds (11.0-16.0)
[2018-09-03 07:28] LABS: AGAP 8; ALB/GLOB RATIO 1.2; ALBUMIN 3.3 g/dL (3.5-5.0); ALKALINE PHOSPHATASE 105 U/L (32-122); BUN 10 mg/dL (8-22); CALCIUM 8.3 mg/dL (8.8-10.2); CHLORIDE 96 mmol/L (98-107); COSMO 274; CREATININE 0.7 mg/dL (0.7-1.2); ESTIMATED GFR > 60; GLUCOSE 125 mg/dL (70-104); GOT 61 U/L (10-34); GPT 18 U/L (10-44); MAGNESIUM 1.9 mg/dL (1.5-2.7); POTASSIUM 3.2 mmol/L (3.5-5.1); SODIUM 137 mmol/L (136-145); TCO2 33 mmol/L (25-35); TOTAL BILIRUBIN 9.11 mg/dL (0.20-1.00)
[2018-09-03] MEDS: FOLIC ACID PO SCH (09:11)
[2018-09-03] MEDS: CYMBALTA PO SCH (09:12)
[2018-09-03] MEDS ORDERED: DIPRIVAN 1% ONE (09:25)
[2018-09-03] MEDS ORDERED: EPINEPHRINE SYRINGE ONE (09:45)
--- NOTE | 2018-09-03 10:17 | PROGRESS NOTE ---
DATE: 09/03/2018 SUBJECTIVE: Mr. Nath had an unremarkable night. Moved to the floor. The [facility] called back and wanted to know his status. Last I had talked to him he did not want to go to the [facility]. His sister was going to try and talk to him. OBJECTIVE: His temp is 98.3 degrees, pulse 90, respirations 20, blood pressure 108/66. Pupils are equal and round. Lungs are clear in all lung pink. Cardiovascular with regular rhythm and rate without murmur or S3. Abdomen is soft. Skin is warm and dry. Urine output is 1500 mL. ASSESSMENT AND PLAN: 1. Large volume ascites. 2. Cirrhotic liver. 3. Stable splenomegaly and abdominal varices. 4. Large left pleural effusion, trace right effusion. 5. He has some evidence of thickened colonic wall on CT scan. 6. Mild mesenteric and periportal lymphadenopathy, which is unchanged. 7. Anemia. He got a unit of blood yesterday. I think we will give him another unit today. 8. Macrocytic anemia. Continue B12 and folate. 9. Coagulopathy. INR was 2.0. He received some vitamin K. 10. He has thrombocytopenia, most likely secondary to splenomegaly. 11. Severe protein calorie malnutrition. Encourage p.o. intake. Suspect this is likely secondary to alcoholism noted. NOTE: The [facility] has agreed to accept him but the patient has refused to go to the [facility]. So, ongoing discussion going on with that. cc: Roberto Sosa MD
[2018-09-03] MEDS: VITAMIN K 10 MG in NS 50 ML IV SCH (10:26)
[2018-09-03] MEDS: THIAMINE 100 MG in NS 50 ML IV SCH (10:38)
[2018-09-03] MEDS ORDERED: NS 500 ML IV ONE (11:00)
--- NOTE | 2018-09-03 13:33 | OPERATIVE NOTE ---
PROCEDURE DATE: 09/03/2018 PROCEDURE: Upper gastrointestinal endoscopy. PROVIDER: Marcos Bennett MD. INDICATIONS: Hematemesis, cirrhosis, upper GI bleed. MEDICATIONS: Monitored anesthesia care. DESCRIPTION OF PROCEDURE: Prior to procedure, a history and physical was performed. The patient's medication and allergies were reviewed. The patient's tolerance to previous anesthesia was also reviewed. The risks and benefits of the procedure and sedation options and risks were discussed with the patient. All questions were answered. Informed consent was obtained. After reviewing the risks and benefits, the patient was deemed in satisfactory condition to undergo the procedure. The endoscope was passed under direct visualization. Throughout the procedure, the patient's blood pressure, pulse and oxygen saturations were monitored continuously. Endoscope was introduced through the mouth and advanced to the afferent limb of the jejunum. The upper GI endoscopy was accomplished without difficulty. The patient tolerated the procedure well. COMPLICATIONS: No immediate complications. ESTIMATED BLOOD LOSS: Minimal. FINDINGS: The esophagus normal. Z-line was regular at 40 cm from the incisors. The gastric pouch revealed moderate portal hypertensive gastropathy. The afferent limb of the jejunum was normal prior to the gastric jejunum anastomosis. Immediately distal to that were 2 marginal ulcers, one was 1 cm, the other was 5 mm. The 1 cm ulcer had spontaneous oozing of blood along the rim. 2 mL of epinephrine diluted 1:85530 was injected submucosally around the ulcer. The margins were cauterized with monopolar probe with good hemostasis at the end of procedure. IMPRESSION: Moderate portal hypertensive gastropathy. Marginal ulcers treated with epinephrine and cautery. RECOMMENDATIONS: Start clear liquid diet. Continue PPI b.i.d. Continue to trend hemoglobin and hematocrit. Transfuse as needed to maintain hemoglobin between 7 and 8. We will follow with you. Please call with any questions or concerns.
[2018-09-03] MEDS: ROCEPHIN 2 GM in NS 50 ML IV SCH (21:36)
[2018-09-04] MEDS: PROTONIX PO SCH ×4 (06:06→18:03)
[2018-09-04] MEDS: SYNTHROID PO SCH (06:07)
[2018-09-04] MEDS: VITAMIN K 10 MG in NS 50 ML IV SCH ×2 (08:51→12:11)
[2018-09-04] MEDS: CYMBALTA PO SCH (08:51)
[2018-09-04] MEDS: FOLIC ACID PO SCH (08:51)
[2018-09-04] MEDS ORDERED: PROTONIX IV SCH (09:13)
[2018-09-04] MEDS: CARAFATE LIQUID PO SCH ×4 (10:14→22:47)
[2018-09-04] MEDS: THIAMINE 100 MG in NS 50 ML IV SCH (10:17)
[2018-09-04 12:31] LABS: INR 2.1; PROTIME 25.1 Seconds (11.0-16.0)
--- NOTE | 2018-09-04 14:11 | Diag Imaging Result Doc PS360 ---
US ABD PARACENTESIS W S/I - 09/04/2018 INDICATION: Ascites COMPARISON: CT from 09/01/2018 FINDINGS: The risks and benefits of the procedure were discussed with the patient. All questions were answered. Written and verbal consent was obtained. Ultrasound scanning demonstrated ascites. Overlying skin was prepped and draped in sterile fashion. Anesthesia was achieved with injection of 10 cc 1% lidocaine. The paracentesis catheter was advanced until the return of ascites fluid. 6.7 L was aspirated. The catheter was withdrawn intact. The patient reported no symptoms from the procedure. IMPRESSION: Successful and uncomplicated ultrasound-guided paracentesis. Electronically signed by Prince Cramer 09/04/2018 2:09 PM
[2018-09-04] MEDS ORDERED: NS 500 ML IV SCH (15:00)
[2018-09-04 16:51] LABS: TOTAL PROT BODY FLUID 1.3 g/dL
[2018-09-04 16:52] LABS: ALBUMIN BODY FLUID 0.8 g/dL; AMYLASE BODY FLUID 6 U/L
[2018-09-04 18:08] LABS: BODY FLUID SOURCE PERITONEAL FLUID; WBC BF 102 /cumm
[2018-09-04 18:09] LABS: MONOS 74 %; POLYS 26 %
--- NOTE | 2018-09-04 18:19 | PROGRESS NOTE ---
DATE: 09/04/2018 SUBJECTIVE: Mr. Nath is still pretty uncomfortable. Abdomen distended. OBJECTIVE: He remains afebrile, temperature 98.2 degrees, pulse 92, respirations 20, blood pressure 107/62. Pupils are equal. Lungs are clear in all lung pink. Cardiovascular: Regular rhythm and rate without murmur or S3. Urine output is 1700 mL. He received a paracentesis, ultrasound-guided, marino off 6.7 L, aspirated, sent for studies. Tolerated procedure well. He underwent upper EGD. Moderate portal hypertension. Gastropathy. Marginal ulcers, treated with epinephrine and cautery. ASSESSMENT AND PLAN: 1. Large volume ascites. He has had a paracentesis. 2. Cirrhotic liver. 3. Stable splenomegaly and abdominal varices. 4. Large left pleural effusion, trace right effusion. 5. Some evidence of thickened colonic wall on CT scan. 6. Mild mesenteric and periportal lymphadenopathy, which is unchanged. 7. Anemia. Continue to follow his hemoglobin and hematocrit, give blood as needed. 8. Macrocytic anemia. He is on B12 and folate. 9. History of thrombocytopenia, suspect secondary to splenomegaly. 10. Severe protein-calorie malnutrition. Encourage p.o. intake. Does not appear to have acute peritonitis. Continue present measures. He is on ceftriaxone 2 g intravenously every 24 hours and getting thiamine 100 mg intravenously daily and Carafate 1 g every 6 hours. cc: Roberto Sosa MD
--- NOTE | 2018-09-04 18:21 | GASTROENTEROLOGY PROGRESS NOTE ---
DATE: 09/03/2018 SUBJECTIVE: He is resting in bed. He is feeling the same. He feels tired. He denies any nausea or vomiting. He has poor oral intake. He had an EGD done yesterday by Dr. Bennett, and he was found to have marginal ulcers which were treated with epinephrine and cautery. He had evidence of portal hypertensive gastropathy and chronic liver cirrhosis. PHYSICAL EXAMINATION: Vital signs: Temperature 98.1 degrees, pulse of 92, respiratory 20, blood pressure 109/70, saturating 98% on nasal cannula 3 L. Body weight of 197 pounds 7 ounces. BMI 29.2 kg/m2. General: Moderately nourished, lying in bed, in no acute distress. HEENT: Pale conjunctiva. Icteric sclerae. Neck: Supple. Abdomen: Distended. Discomfort in the periumbilical region. No rebound or guarding. Extremities: No cyanosis. Neurologic: Otherwise, his awake, alert, answers questions. LABORATORIES: Hemoglobin 7.1, hematocrit 22.3, white count of 5.8, platelet count of 111,000. INR 1.9, PT of 23.8. Sodium 137, potassium 3.2, chloride 96, bicarb 39 with BUN of 10, creatinine 0.7, glucose of 125. Calcium is 8.3. Magnesium 1.9. Total bilirubin is 9.1, AST 61, ALT 18, alkaline phosphatase 105, total protein 6, albumin 3.3. MICROBIOLOGY: Blood culture x2 negative at 48 hours. IMPRESSION AND PLAN: 1. Decompensated alcoholic liver cirrhosis, and this is complicated with large- volume ascites. He needs paracentesis. We will schedule it for today. His INR is 1.9. We may have to give him FFP 2 units before he goes for paracentesis. We will talk to the primary care team. 2. Continue to follow liver enzymes and CBC. 3. Coagulopathy. We will continue vitamin K. We may need FFP in order for him to have a therapeutic paracentesis. 4. Portal hypertensive gastropathy on esophagogastroduodenoscopy, secondary to chronic liver disease and cirrhosis. 5. Marginal ulcers. He will continue on PPIs b.i.d. We will start on Carafate 1 g every 6 hours. 6. Anemia. We will watch for now. Transfuse to keep hematocrit more than 21%. 7. Left-sided pleural effusion, being managed by the primary team. 8. Thrombocytopenia. Continue watch for now. 9. Protein-calorie malnutrition. Nutrition team is on board. Being managed by the primary care. 10. Alcoholism. The patient quit about 4 months ago. 11. We will start the patient on Iron-C b.i.d. and MVI QD for anemia. We will transfuse 1 unit of blood if hematocrit < 21%. 12. We will follow along. We counseled the patient about continued alcohol abstinence, and all questions were answered. Please call us with any further questions. cc: MD Roberto Kimble MD MTDD
[2018-09-04] MEDS: ROCEPHIN 2 GM in NS 50 ML IV SCH (22:47)
[2018-09-05] MEDS: CARAFATE LIQUID PO SCH ×4 (04:13→21:18)
[2018-09-05] MEDS: SYNTHROID PO SCH (06:42)
[2018-09-05] MEDS: PROTONIX PO SCH ×2 (06:42→21:18)
[2018-09-05 07:09] LABS: PROTIME 24.2 Seconds (11.0-16.0)
[2018-09-05] MEDS: FOLIC ACID PO SCH (10:48)
[2018-09-05] MEDS: VITAMIN K 10 MG in NS 50 ML IV SCH (10:48)
[2018-09-05] MEDS: CYMBALTA PO SCH (10:48)
[2018-09-05] MEDS: THIAMINE 100 MG in NS 50 ML IV SCH (12:26)
--- NOTE | 2018-09-05 13:42 | PROVIDER PROGRESS NOTE ---
Progress Note SUBJECTIVE: LVP done yesterday with removal of 6.7L of ascites. No acute overnight events. No N/V/F, CP, SOB, abdominal pain. He reports relief of abdominal distension with paracentesis. No BM. No rectal bleeding or confusion. OBJECTIVE: Last Vital Signs Temp 98.3 F 09/05/18 13:25 Pulse 94 H 09/05/18 13:25 Resp 20 09/05/18 13:25 BP 103/66 09/05/18 13:25 Pulse Ox 98 09/05/18 13:25 Height 5 ft 9 in Weight 197 lb 7 oz GEN: chronically ill-appearing, NAD HEENT: icteric, MMM CV: tachycardic, regular PULM: decreased BS at bases ABD: obese, distended, NT, BS present; +ascites, not tense EXT: no cce NEURO: CNII-XII grossly intact; no asterixis, AAOx3 SKIN: jaundice LABS 09/05/18 06:14 INR 2.00 no SBP A/P: Mr. Kenroy Nath is a 53-year-old gentleman who presents with worsening h/o RYGB decompensated alcoholic cirrhosis, complicated by ascites and jaundice admitted with UGIB secondary to bleeding marginal ulcer. No overt bleeding. LVP yesterday with removal of 6.7L of ascites negative for SBP. No hepatic encephalopathy. He has completed 5 days of CTX for SBP ppx. # Decompensated alcoholic cirrhosis: - Cirrhosis: ETOH-related; checking LFTs, INR To calculate MELD - Ascites: s/p LVP 09/04; negative for SBP: will check CMP and determine need for restarting diuretics; low Na diet, strict I/O - HE: none prior; stopped lactulose and rifaximin; stopped ativan - EV: P[facility] and marginal ulcers s/p cautery and epineprhine; trending H/H, on PPI BID and carafate - HCC: no evidence of hepatoma on imaging; repeat liver US every 6 months - OLT: not a candidate for transplant given active ETOH use within 6 months # Bleeding marginal ulcers; continue PPI and carafate; trend H/H daily, goal hgb 7-8 # Macrocytic anemia: normal iron studies, B12, folate on last admission # Coagulopathy: trend INR daily # Left pleural effusion: checking lytes to see if we can start diuretics # Thrombocytopenia secondary to splenomegaly. # Severe protein calorie malnutrition: low Na diet; ensure with meals # Hypokalemia: checking lytes; relete prn # Alcoholism: patient has not drank any alcohol for 4 months; utox negative for ethanol We will follow with you. Please call with any questions or concerns.
--- NOTE | 2018-09-05 14:03 | PROGRESS NOTE ---
DATE: 09/05/2018 SUBJECTIVE: Mr. Nath is feeling better. He is eating. His abdomen feels better. He is talking about maybe going home. Apparently he can ambulate. OBJECTIVE: Vital signs: Temperature 98.3 degrees, pulse 94, respirations 20, blood pressure 103/66. HEENT: Pupils are equal and round. Lungs: Clear in all lung pink. Cardiovascular: Regular rhythm and rate without murmur or S3. Genitourinary: Urine output is 600 mL. ASSESSMENT AND PLAN: 1. Large volume ascites status post paracentesis with a cirrhotic liver, stable splenomegaly and abdominal varices. 2. Large left pleural effusion, trace right effusion. 3. Evidence of thickened colonic wall on CT scan. Aware. 4. Mild mesenteric and periportal lymphadenopathy which is unchanged. 5. Anemia. Continue to follow hemoglobin and hematocrit. Stable. 6. Macrocytic anemia. Continue B12 and folate supplement. 7. History of thrombocytopenia, probably secondary to splenomegaly. 8. Severe protein calorie malnutrition. Encouraging p.o. intake which is improved. REVIEW OF HIS ORDERS: I do not see any change. There is discussion about when he wants to go home. He refuses to go to the [facility]. REVIEW OF LABS: Hematocrit 22, hemoglobin 7, white count 5820, platelet count 111,000. Electrolytes are good. Creatinine is 0.7. Transaminases have come down. Bilirubin is still high at 9.1. cc: Roberto Sosa MD
[2018-09-05 15:10] LABS: AGAP 8; CHLORIDE 96 mmol/L (98-107); GLUCOSE 110 mg/dL (70-104); POTASSIUM 3.5 mmol/L (3.5-5.1); SODIUM 136 mmol/L (136-145); TCO2 32 mmol/L (25-35)
[2018-09-05 15:11] LABS: ALB/GLOB RATIO 0.9; ALBUMIN 2.8 g/dL (3.5-5.0); ALKALINE PHOSPHATASE 93 U/L (32-122); BUN 7 mg/dL (8-22); COSMO 271; CREATININE 0.6 mg/dL (0.7-1.2); ESTIMATED GFR > 60; GOT 62 U/L (10-34); GPT 20 U/L (10-44); TOTAL BILIRUBIN 6.63 mg/dL (0.20-1.00)
[2018-09-05 15:38] LABS: INR 1.85; PROTIME 22.8 Seconds (11.0-16.0)
[2018-09-05 15:39] LABS: BASO# 0.06 X1000 (0.0-0.2); EOS# 0.12 X1000 (0.0-0.7); EOS% 2.1 % (0.0-10.0); HEMATOCRIT 26.3 % (42.0-52.0); HEMOGLOBIN 8.6 g/dL (14.0-18.0); IMM GRAN# 0.05 X1000 (0.0-0.04); IMM GRAN% 0.9 % (0.0-0.5); LYMPH# 1.15 X1000 (1.2-3.4); LYMPH% 19.7 % (20.5-51.1); MCH 32.3 PG (27-31); MCHC 32.7 g/dL (33-37); MCV 98.9 FL (81-99); MONO# 1.13 X1000 (0.11-0.59); MONO% 19.3 % (1.7-9.3); MPV 9.3 FL (7.4-10.4); NEUT# 3.33 X1000 (1.4-6.5); PLT 103 X1000 (130-400); RBC 2.66 XMIL (4.7-6.1); RDW 23.6 % (11.5-14.5); WBC 5.84 X1000 (4.8-10.8)
[2018-09-05 17:00] LABS: ANISOCYTOSIS 1+; BANDS 1 % (0-1); EOS 3 % (1-10); LYMPHS 13 % (21-51); MONO 9 % (1-9); SEGS 74 % (42-75)
[2018-09-06] MEDS: CARAFATE LIQUID PO SCH ×3 (03:13→15:17)
[2018-09-06] MEDS: SYNTHROID PO SCH (07:05)
[2018-09-06] MEDS: PROTONIX PO SCH ×2 (07:06→19:20)
--- NOTE | 2018-09-06 09:36 | PROGRESS NOTE ---
DATE: 09/06/2018 SUBJECTIVE: Mr. Nath said he had a pretty good night, tolerated not having a Simon catheter in. He does not feel like he is quite ready go home yet, still kind of puny. He is eating better. OBJECTIVE: Vital Signs: Temperature 98.6 degrees, pulse 94, respirations 24, and blood pressure 104/61. Eyes: Pupils are equal and round. Lungs: Clear. CVP less than 6 cm. Abdomen: Soft. Positive bowel sounds. Extremities: Without edema. : Urine output is about 500 mL. Not sure we have been able to collect all of it once we get the Simon catheter out. ASSESSMENT AND PLAN: Decompensated alcoholic cirrhosis, ethanol related. Liver function tests, transaminases coming down. Elevated bilirubin is about the same. Ascites status post paracentesis,was negative for subacute bacterial peritonitis. Continue to follow electrolytes. Has no sign of hepatic encephalopathy at this time, so is off the lactulose and rifaximin. He has some marginal ulcers and status post cautery and epinephrine. So, he does have some esophageal varices. No evidence of hepatoma. He does have a hepatitis C. Repeat an ultrasound every 6 months. As far as proceeding for outpatient liver transplant, he is not a candidate given active ethanol use in the last 6 months. So, continue present regimen. He is wanting to go home; see if maybe he will be ready this weekend. We will see how we are doing tomorrow. cc: Roberto Sosa MD
[2018-09-06] MEDS: VITAMIN K 10 MG in NS 50 ML IV SCH (09:59)
[2018-09-06] MEDS: CYMBALTA PO SCH (09:59)
[2018-09-06] MEDS: FOLIC ACID PO SCH (09:59)
[2018-09-06] MEDS: THIAMINE 100 MG in NS 50 ML IV SCH (13:02)
[2018-09-07] MEDS: CARAFATE LIQUID PO SCH ×5 (00:03→21:33)
[2018-09-07] MEDS: PROTONIX PO SCH ×2 (07:04→18:29)
[2018-09-07] MEDS: SYNTHROID PO SCH (07:04)
[2018-09-07] MEDS: CYMBALTA PO SCH (08:24)
[2018-09-07] MEDS: VITAMIN K 10 MG in NS 50 ML IV SCH (08:25)
[2018-09-07] MEDS: FOLIC ACID PO SCH (08:25)
[2018-09-07] MEDS: THIAMINE 100 MG in NS 50 ML IV SCH (12:01)
--- NOTE | 2018-09-07 14:01 | PROGRESS NOTE ---
DATE: 09/07/2018 SUBJECTIVE: We had put his catheter back in. He had over 900 mL residual. Still pretty weak and puny walking around. OBJECTIVE: Vital Signs: He remains afebrile, temperature 98.6 degrees, pulse 93, respirations 26, blood pressure 120/68. HEENT: Pupils are equal and round. Lungs: Clear in all lung pink. Cardiovascular: Regular rhythm and rate without murmur or S3. Abdomen: Soft. Skin: Warm and dry. Urine output about 500 mL. He has not had a bowel movement in a couple days as well. We will put him back on his lactulose. ASSESSMENT AND PLAN: 1. Decompensated alcoholic cirrhosis. This is ethanol related with ascites. He has not had any sign of hepatic encephalopathy. He has esophageal varices and hepatitis C without any evidence of hepatoma. Plan is to image him every 6 months. Not a candidate for liver transplant given his active ethanol use. So, continue to watch his blood counts. Continue physical therapy. He is getting a little bit of fluid back in his tummy. 2. He had urinary retention. Will put back on his lactulose to see if that will get his bowels going and I will increase his Flomax to see if we can take the Simon catheter out again. 3. Weakness and deconditioning. Continue his physical therapy and he wants to try and go home but he is not a candidate I believe for rehab therapy. He refused to go to the [facility], so we will continue current medications and I will add back lactulose 30 mL twice a day. We will give him Flomax 0.4 mg twice a day. See if we can take out the Simon catheter in the next 24 to 48 hours. cc: Roberto Sosa MD
[2018-09-07] MEDS: FLOMAX PO SCH ×2 (15:21→21:33)
[2018-09-07] MEDS: LACTULOSE PO SCH ×2 (15:21→21:37)
[2018-09-08] MEDS: CARAFATE LIQUID PO SCH ×4 (03:34→19:28)
[2018-09-08] MEDS: SYNTHROID PO SCH (05:53)
[2018-09-08] MEDS: PROTONIX PO SCH ×3 (05:53→18:25)
[2018-09-08] MEDS: FLOMAX PO SCH ×3 (09:06→22:17)
[2018-09-08] MEDS: FOLIC ACID PO SCH (09:06)
[2018-09-08] MEDS: LACTULOSE PO SCH ×4 (09:06→22:18)
[2018-09-08] MEDS: CYMBALTA PO SCH (09:06)
--- NOTE | 2018-09-08 11:41 | PROGRESS NOTE ---
DATE: 09/08/2018 SUBJECTIVE: Mr. Nath is reading the paper, feeling comfortable. Breathing comfortably. He did have a bowel movement yesterday. I will see if we can get the Simon catheter out again. I put him on Flomax high dose. OBJECTIVE: Temperature is 98.2 degrees, pulse 106, respirations 20, blood pressure 109/69. Pupils are equal and round. Lungs are clear in all lung pink. Cardiovascular: Regular rhythm and rate without murmur or S3. Abdomen is soft. Skin is warm and dry. URINE OUTPUT: 500 mL, which was what was recorded. ASSESSMENT AND PLAN: 1. Decompensated alcoholic cirrhosis, ethanol related with ascites. He has not had any sign of hepatic encephalopathy. I put him back on his lactulose, though, for constipation. He has esophageal varices and history of hepatitis C without any evidence of hepatoma. Going to work on his strength and ambulation and see if we can get his Simon catheter out. 2. Urinary retention. I think a combination of constipation and benign prostatic hypertrophy, so he is on high-dose Flomax. We will take out his catheter again today and see how we do. 3. Weakness and deconditioning. Continue physical therapy in the hopes that we can go home soon, get him walking with a walker. He would like to go home. 4. He does have an anemia. We will continue to follow hematocrit around 28, hemoglobin 8. Bilirubin is starting to come down. Transaminases have come down as well. I may check some more liver enzymes, bilirubin, electrolytes, and CBC again in the morning. cc: Roberto Sosa MD
[2018-09-08] MEDS: THIAMINE 100 MG in NS 50 ML IV SCH (12:33)
[2018-09-09] MEDS: CARAFATE LIQUID PO SCH ×2 (03:08→09:53)
[2018-09-09] MEDS: SYNTHROID PO SCH (05:33)
[2018-09-09] MEDS: PROTONIX PO SCH ×2 (05:33→06:39)
[2018-09-09 07:26] LABS: BASO# 0.06 X1000 (0.0-0.2); BASO% 0.8 % (0.0-0.8); EOS# 0.08 X1000 (0.0-0.7); EOS% 1.1 % (0.0-10.0); HEMATOCRIT 24.8 % (42.0-52.0); HEMOGLOBIN 8.1 g/dL (14.0-18.0); IMM GRAN# 0.07 X1000 (0.0-0.04); LYMPH# 1.51 X1000 (1.2-3.4); LYMPH% 21.2 % (20.5-51.1); MCH 31.9 PG (27-31); MCHC 32.7 g/dL (33-37); MCV 97.6 FL (81-99); MONO# 1.19 X1000 (0.11-0.59); MONO% 16.7 % (1.7-9.3); MPV 9.3 FL (7.4-10.4); NEUT# 4.22 X1000 (1.4-6.5); NEUT% 59.2 % (42.2-75.2); PLT 112 X1000 (130-400); RBC 2.54 XMIL (4.7-6.1); RDW 22.9 % (11.5-14.5); WBC 7.13 X1000 (4.8-10.8)
[2018-09-09 07:32] LABS: AGAP 7; ALB/GLOB RATIO 0.8; ALBUMIN 2.6 g/dL (3.5-5.0); ALKALINE PHOSPHATASE 107 U/L (32-122); BUN 7 mg/dL (8-22); CALCIUM 7.7 mg/dL (8.8-10.2); CHLORIDE 92 mmol/L (98-107); COSMO 259; CREATININE 0.5 mg/dL (0.7-1.2); ESTIMATED GFR > 60; GLUCOSE 109 mg/dL (70-104); GOT 60 U/L (10-34); GPT 18 U/L (10-44); MAGNESIUM 1.6 mg/dL (1.5-2.7); POTASSIUM 2.8 mmol/L (3.5-5.1); SODIUM 130 mmol/L (136-145); TCO2 31 mmol/L (25-35); TOTAL BILIRUBIN 7.79 mg/dL (0.20-1.00)
[2018-09-09] MEDS: LACTULOSE PO SCH (09:53)
[2018-09-09] MEDS: FLOMAX PO SCH (09:54)
[2018-09-09] MEDS: FOLIC ACID PO SCH (09:54)
[2018-09-09] MEDS: CYMBALTA PO SCH (09:54)
[2018-09-09 10:56] VITALS: BP 110/71
[2018-09-09] MEDS: THIAMINE 100 MG in NS 50 ML IV SCH (12:10)
--- NOTE | 2018-09-09 14:33 | DISCHARGE SUMMARY ---
ADMISSION DATE: 08/31/2018 DISCHARGE DATE: 09/09/2018 PRIMARY CARE PHYSICIAN: He has a primary care physician at the [facility]. HOSPITAL COURSE: He presented on 08/31/2018 with weakness, diarrhea, nausea, and vomiting. This 53-year-old male with past medical history of alcoholic cirrhosis of the liver has been admitted with acute decompensation, recently discharged back on 07/02/2018, presented to the emergency room progressive weakness, nausea, vomiting, diarrhea. The patient states he has been more lethargic and confused. He has not had any fever but has had some mildly increased shortness of breath. He has not been coughing any mucopurulent sputum. Family reports that he has had poor p.o. intake, both food and liquids and nauseated and really cannot keep food down. In the emergency room, labs were done, noted to have multiple metabolic derangements, hyponatremia. Bilirubin was 11.9, AST was 124. Lactic acid was 2.7. Also, anemia with a white count of 15,000. Chest x-ray showed left pleural effusion. Possibility of left lower lobe pneumonia could not be ruled out. He was hypotensive and slightly tachycardic. PAST MEDICAL HISTORY: 1. Alcoholic cirrhosis. 2. Admissions for acute decompensation, most recently in June of this year. 3. Longstanding alcohol dependence. Reportedly quit drinking in June of this year. 4. Hypothyroidism. 5. Depression. 6. Recent infected epidermal inclusion cyst in the scrotum, spontaneously drained. 7. Gastroesophageal reflux disease. 8. History of gastric ulcers. PAST SURGICAL HISTORY: He has had a Nik-en-Y bypass surgery in the past. ADMISSION DIAGNOSES: 1. Decompensated cirrhosis of the liver. The plan was to administer IV fluids and some albumin and make sure he does not have any sign of peritonitis. At same time he had intravascular volume depletion. His bilirubin was elevated. Transaminases were elevated. Coagulopathy with an INR of 2.1. 2. He had a large left pleural effusion. 3. Macrocytic anemia. He was calculated to have a Child-Espinoza Class C. The patient's Model for end-stage liver disease was a score of 24. Discriminatory function score was 78. The patient followed by Gastroenterology. Dr. Topete was consulted. He had some confusion. He was put on Xifaxan and put on his lactulose and this did seem to improve and did not appear to have any further hepatic encephalopathy, but we did put him back on his lactulose because of his constipation. The liver enzymes did go down. We supplemented B12 and folate for his macrocytic anemia. We felt the splenomegaly was secondary to cirrhosis and coagulopathy secondary to the cirrhosis and hepatic dysfunction. He had protein-calorie malnutrition, encouraged p.o. intake. And he did start he has a little bit better. He had a paracentesis on 09/04/2018, drained off 6.7 L, and seemed to get a little stronger. Bilirubin did come down a little bit. There were attempts to transfer him to the [facility], but he refused transfer, but wanted to go home on 09/09/2018. We will discharge him home. 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 We will let him go on Cymbalta 30 mg daily, folic acid 1 mg a day, lactulose 30 mL twice a day, Synthroid 50 mcg a day, Protonix 40 mg takes twice a day, and Carafate 1 g q.6 h., thiamine 100 mg a day, Flomax 0.4 mg twice a day. We did take out his Simon catheter and he had a little bit of residual and we had to put it back again, started him back on Flomax, and he was able to discontinue his Simon catheter, so we will discharge him home. cc: Roberto Sosa MD
--- NOTE | 2018-09-09 16:40 | PROVIDER PROGRESS NOTE ---
Progress Note SUBJECTIVE: No acute overnight events. Patient denies complaints morning and is requesting discharge. OBJECTIVE: Last Vital Signs Temp 98.6 F 09/09/18 10:54 Pulse 108 H 09/09/18 10:54 Resp 16 09/09/18 10:54 BP 110/71 09/09/18 10:54 Pulse Ox 98 09/09/18 10:54 Height 5 ft 9 in Weight 197 lb 7 oz GEN: chronically ill-appearing, NAD HEENT: icteric, MMM CV: tachycardic, regular PULM: decreased BS at bases ABD: obese, distended, diffuse TTP, BS present; +ascites EXT: no cce NEURO: CNII-XII grossly intact; no asterixis, AAOx3 SKIN: jaundice LABS 09/09/18 09/09/18 06:25 06:25 WBC 7.13 Hgb 8.1 L Plt Count 112 L Sodium 130 L Potassium 2.8 L Chloride 92 L Carbon Dioxide 31 BUN 7 L Creatinine 0.5 L Glucose 109 H Total Bilirubin 7.79 H AST 60 H ALT 18 Alkaline Phosphatase 107 Total Protein 6.0 L Albumin 2.6 L A/P: Mr. Kenroy Nath is a 53-year-old gentleman with history of RYGB who was admitted with hematemesis and worsening decompensated alcoholic cirrhosis with ascites and jaundice. EGD on 09/03 showed moderate PHG and 2 marginal ulcers; one was oozing and treated with epinephrine and cautery. # Decompensated alcoholic cirrhosis: - Cirrhosis: ETOH-related; CP-C; MELD-Na 25 - Ascites: present; s/p LVP on 09/05 with 6.7L removed; will need to be restarted on home diuretics upon discharge - HE: none prior - EV: none; repeat EGD in 1 year - HCC: no evidence of hepatoma on imaging; repeat liver US every 6 months - OLT: not a candidate for transplant given active ETOH use within 6 months #UGIB: 2/2 to marginal ulcers; treated: hgb stable without recurrent bleeding on PPI BID and carafate # Left pleural effusion: likely hepatic hydrothorax; diuretics as above # Thrombocytopenia secondary to splenomegaly. # Severe protein calorie malnutrition, likely secondary to alcoholism and cirrhosis. Nutrition as above. # Hypokalemia: relete prn # Hyponatremia: hypervolemic hyponatremia: will need to be on 1.5L fluid restriction # Alcoholism: patient has not drank any alcohol for 4 months; utox negative for ethanol; continue thiamine, folate MVI He will need to follow-up within 1-2 weeks of discharge. Patient discharged today
== END 2018-09-09 17:30 | disposition home or self-care (01) | DRG 432 ==
LOC: ED 13:52 → SUATTDRO 17:17 → EDIPHOLD 17:17 → ICU 09-01 00:48 → 4N 09-02 15:04
PROVIDERS: ATTEND Emergency Medicine
PROC: EN.HEAT (2018-09-03 09:35)
CPT/HCPCS: 36430; 36569; 49083; 71010; 71045; 74177; 80053; 80101; 80301; 80307; 80320; 80324; 80345; 80346; 80353; 80358; 80361; 80365; 81001; 82042; 82055; 82140; 82150; 82550; 82607; 82728; 82746; 82805; 82948; 83540; 83550; 83605; 83735; 83992; 84100; 84157; 84484; 85025; 85610; 86850; 86900; 86901; 86920; 87040; 87070; 87075; 89051; 93005; 94760; 94761; 96361; 96365; 96366; 96367; 97161; 99285; A9270; C9113; G0431; G0434; G0479; G0480; G6040; J0171; J0696; J2060; J2354; J2405; J2550; J3411; J3430; J3480; J7030; J7040; J7050; J7060; P9016; P9017; P9047; Q9967; S0164; XXXXX

== ENCOUNTER 2018-09-30 00:51 | Inpatient (IN) ==
[2018-09-30 02:38] LABS: BASO# 0.05 X1000 (0.0-0.2); BASO% 0.5 % (0.0-0.8); EOS% 2.1 % (0.0-10.0); HEMATOCRIT 30.3 % (42.0-52.0); HEMOGLOBIN 9.9 g/dL (14.0-18.0); IMM GRAN# 0.04 X1000 (0.0-0.04); IMM GRAN% 0.4 % (0.0-0.5); INR 2.03; LYMPH# 1.76 X1000 (1.2-3.4); LYMPH% 18.8 % (20.5-51.1); MCHC 32.7 g/dL (33-37); MONO# 0.98 X1000 (0.11-0.59); MONO% 10.5 % (1.7-9.3); MPV 8.8 FL (7.4-10.4); NEUT# 6.33 X1000 (1.4-6.5); NEUT% 67.7 % (42.2-75.2); PLT 181 X1000 (130-400); PROTIME 24.4 Seconds (11.0-16.0); RDW 23.4 % (11.5-14.5); WBC 9.36 X1000 (4.8-10.8)
[2018-09-30 02:56] LABS: ESTIMATED GFR > 60
[2018-09-30 02:59] LABS: AGAP 17; ALB/GLOB RATIO 0.6; ALKALINE PHOSPHATASE 143 U/L (32-122); BUN 9 mg/dL (8-22); CALCIUM 8.9 mg/dL (8.8-10.2); CHLORIDE 86 mmol/L (98-107); COSMO 264; CREATININE 0.8 mg/dL (0.7-1.2); GLUCOSE 83 mg/dL (70-104); GOT 105 U/L (10-34); GPT 29 U/L (10-44); POTASSIUM 2.8 mmol/L (3.5-5.1); SODIUM 133 mmol/L (136-145); TCO2 30 mmol/L (25-35); TOTAL BILIRUBIN 12.71 mg/dL (0.20-1.00); TOTAL PROTEIN 8.2 g/dL (6.3-8.3)
[2018-09-30 03:46] LABS: URINE SOURCE CLEAN CATCH
[2018-09-30 03:53] LABS: BILIRUBIN URINE MODERATE (NEGATIVE); BLOOD URINE LARGE (NEGATIVE); COLOR YELLOW; GLUCOSE URINE NEGATIVE (NEGATIVE); KETONE URINE 10 mg/dL (NEGATIVE); LEUKOCYTES URINE NEGATIVE (NEGATIVE); NITRITE URINE NEGATIVE (NEGATIVE); PROTEIN URINE 30 mg/dL (NEGATIVE); TURBIDITY URINE CLEAR (CLEAR); UROBILINOGEN URINE >12 mg/dL (NORMAL)
[2018-09-30 03:54] LABS: SP GRAVITY URINE 1.015
[2018-09-30 04:00] LABS: UR AMPHETAMINES QUAL NONE DETECTED (NONE DETECT); UR BARBITUATES QUAL NONE DETECTED (NONE DETECT); UR BENZODIAZEPIN QUAL NONE DETECTED (NONE DETECT); UR CANNABINOIDS QUAL NONE DETECTED (NONE DETECT); UR COCAINE QUAL NONE DETECTED (NONE DETECT); UR METHADONE QUAL NONE DETECTED (NONE DETECT); UR OPIATES QUAL NONE DETECTED (NONE DETECT); UR OXYCODONE QUAL NONE DETECTED (NONE DETECT); UR PCP QUAL NONE DETECTED (NONE DETECT)
[2018-09-30 04:08] LABS: UR EPITHELIAL CELLS <10 /HPF (<10); URINE BACTERIA NEGATIVE /HPF; URINE WBC <10 /HPF (<10)
[2018-09-30 04:09] LABS: URINE CASTS NONE SEEN; URINE CRYSTALS NONE SEEN; URINE SMALL ROUND CELLS NONE SEEN; URINE YEAST NONE SEEN
--- NOTE | 2018-09-30 04:10 | PROVIDER DOCUMENTATION ---
This chart was entered by Nadine Giron Scribe, acting as scribe for Marilyn Dorsey MD. HPI-Abdominal Pain/GI Problem - General Chief Complaint: Abdominal Pain Stated Complaint: ABD PAIN/FLUID Time Seen by Provider: 09/30/18 01:37 Source: patient Allergies/Adverse Reactions: Patient Allergies Allergy/AdvReac Type Severity Reaction Status Date / Time No Known Allergies Allergy Verified 09/30/18 01:19 Home Medications: Home Medication List Medication Instructions Recorded Confirmed Last Taken Type Levothyroxine Sodium 50 mcg PO QAM 06/30/18 09/01/18 08/31/18 08:00 History Lactulose 30 ml PO BID #1 udc 07/04/18 09/01/18 08/31/18 08:00 Rx Multivit,Fe,Ca,FA & Min [Thera M 1 ea PO DAILY #90 tab 07/04/18 09/01/18 08/31/18 08:00 Rx Plus] Thiamine [Vitamin B-1] 100 mg PO DAILY #90 tab 07/04/18 09/01/18 08/31/18 08:00 Rx Folic Acid 1 mg PO DAILY 60 Days #60 tab 09/09/18 Unknown Rx Pantoprazole [Protonix] 40 mg PO 0700,1900 30 Days #60 tab 09/09/18 Unknown Rx Tamsulosin [Flomax] 0.4 mg PO BID 30 Days #60 cap 09/09/18 Unknown Rx - History of Present Illness-ABD Nature of Presenting Problems: 53yom presents to ED cc abdominal pain and fluid in abdomen for about last 3 hours. Pt also reports some dysuria. Pt has hx of cirrhosis. He states that he has needed the fluid drained off his abdomen before and the last time was weekend. He denies any fevers or chills, nausea, or vomiting, or constipation. He has diarrhea from taking his lactulose. Abdominal Pain Onset Location: reports: generalized abdomen Review of Systems - Adult - REVIEW OF SYSTEMS - ADULT Constitutional: reports: see HPI, sasha. denies: chills, fever Eyes: reports: no symptoms reported Ears, Nose, Mouth & Throat: reports: no symptoms reported Cardiovascular: reports: no symptoms reported Respiratory: reports: no symptoms reported Gastrointestinal: reports: see HPI, abdominal pain, other (fluid retention) Genitourinary: reports: see HPI, dysuria Musculoskeletal: reports: no symptoms reported Integumentary: reports: no symptoms reported Neurological: reports: no symptoms reported Psychiatric: reports: no symptoms reported Endocrine: reports: no symptoms reported Hematologic/Lymphatic: reports: no symptoms reported Allergic/Immunologic: reports: no symptoms reported All Other Systems: Reviewed and Negative Past History - Adult - PAST MEDICAL HISTORY-ADULT Review of Records: reports: Nursing Assessment Review, Medications Reviewed, Social history reviewed & non-contributory. Major Childhood Illnesses: reports: denies history Cardiovascular: reports: denies history Respiratory: reports: denies history Gastrointestinal: reports: denies history, hepatitis Obstetrical/Gynecological: reports: denies history Genitourinary: reports: denies history Musculoskeletal: reports: denies history Neurological: reports: denies history Psychiatric: reports: depression Endocrine/Immune: reports: denies history, thyroid disorder (hypo) Other Conditions: reports: denies history, other cancer (skin) - PRIOR SURGERIES/PROCEDURES Surgical/Procedure History: reports: gastric bypass - IMMUNIZATION STATUS Childhood Immunizations: See Nurse Assessment Flu Vaccine: See Nurse Assessment - FAMILY HISTORY Family History: reviewed, not pertinent Physical Exam-General - PHYSICAL EXAM-ADULT Initial Vital Signs Reviewed: Yes - CONSTITUTIONAL General Appearance: alert, no apparent distress - EYES Eyes: PERRL/EOMI, scleral icterus - HEAD, EARS, NOSE, MOUTH & THROAT HENMT: normocephalic/atraumatic - NECK Neck: non-tender, full range of motion, supple - RESPIRATORY Respiratory: chest non-tender, decreased breath sounds (worse on the left) - CARDIOVASCULAR Cardiovascular: normal peripheral pulses, regular rate, rhythm - GASTROINTESTINAL (ABDOMEN) Abdominal Exam: normal bowel sounds, soft, distended, tenderness (diffusely) - MUSCULOSKELETAL Back Exam: normal inspection Extremity: normal range of motion, no pedal edema - SKIN Integumentary: warm/dry, jaundice - NEUROLOGIC Neurologic: grossly normal - PSYCHIATRIC Psych/Mental Status: normal mood/affect, oriented x 3 Progress - PLAN OF CARE/RESULTS Progress/Plan/Lab Results: Vital Signs - 8 hr 09/30/18 01:00 Temperature 98.9 F Pulse Rate 99 H Respiratory Rate 20 Blood Pressure 107/65 O2 Sat by Pulse Oximetry 96 Orders Category Date Time Status CT ABD/PELVIS W/IV CONT ONLY [CT] Stat Exams 09/30/18 01:52 Ordered AMMONIA [CHEM] Stat Lab 09/30/18 01:52 Uncollected CBC WITH ELECTRONIC DIFF [HEME] Stat Lab 09/30/18 01:52 Uncollected COMPREHENSIVE METABOLIC PANEL [CHEM] Stat Lab 09/30/18 01:52 Uncollected PROTIME WITH INR [COAG] Stat Lab 09/30/18 01:52 Uncollected URINALYSIS W/POSS RFLX CULT [URINALYSIS] Stat Lab 09/30/18 01:52 Uncollected URINE DRUG SCREEN Stat Lab 09/30/18 01:52 Uncollected Result Diagrams: 09/30/18 02:11 09/30/18 02:11 - CT/MRI 1 CT Study: Abdomen, Pelvis Impression: See EMR Report (Large left pleural effusion and large abdominal ascites, cirrhosis with evidence of venous hypertension, stable right adrenal nodules. Thickening of the cecum, ascending and proximal transverse colon wall. Although portions of this appear chronic with fatty infiltration, a component of cholecystitis may be present.) - CONSULTS/PCP/HOSPITALIST Notification Time Discussed: 04:06 Reason/Comments: Dr Whalen Consult Disposition: Admit Departure - Departure Date of Disposition Decision: 09/30/18 Time of Disposition Decision: 04:04 DIAGNOSIS: Pleural effusion associated with hepatic disorder Cirrhosis Qualifiers: Hepatic cirrhosis type: alcoholic cirrhosis Ascites presence: with ascites Qualified Code(s): K70.31 - Alcoholic cirrhosis of liver with ascites Abdominal pain Qualifiers: Abdominal location: generalized Qualified Code(s): R10.84 - Generalized abdominal pain Disposition: ADMITTED INPATIENT 09 Certified Medical Emergency: Emergent Condition: Stable - Critical Care Note This patient required my direct & personal management of CC.: No Attestation - Physician/ JEAN-CLAUDE Attestation Patient care was provided by Advanced Practice Provider:: No The physician spent face to face time with patient:: Yes Advanced Practice Provider documentation review:: Supervising physician onsite a nd consulted in the evaluation and care of this patient. The physician did have a face to face encounter with the patient. This chart was documented by the indicated scribe, (Nadine Giron Scribe) and accurately reflects the services I performed and decisions made by me, Marilyn Dorsey MD, as attested by the provider's signature.
[2018-09-30] MEDS ORDERED: POTASSIUM CHLORIDE 60 MEQ in NS 500 ML IV ONE (05:22)
--- NOTE | 2018-09-30 06:00 | Diag Imaging Result Doc PS360 ---
EXAM: CHEST-PORTABLE HISTORY: Further eval of left pleural effusion per CT Abd TECHNIQUE: Portable chest single view COMPARISON: 08/31/2018 FINDINGS: There is a moderate to large left pleural effusion. This is similar to the prior exam. No cardiomegaly. Right lung is clear. Atelectasis to the left lung. IMPRESSION: Left-sided pleural effusion with atelectasis Electronically signed by Kole Yoo 09/30/2018 5:57 AM
--- NOTE | 2018-09-30 06:41 | Diag Imaging Result Doc PS360 ---
CT ABD/PELVIS W/IV CONT ONLY - 09/30/2018 INDICATION: cirrhosis, ascites, abdominal pain COMPARISON: 09/01/2018 FINDINGS: There is a moderate to large left basilar pleural effusion with some passive atelectasis. The right lung remains clear. Heart size is normal. Stable advanced cirrhosis. There is a large amount of ascites. Stable splenomegaly. No bowel obstruction area no free air. Urinary bladder, prostate, and rectum are normal. Severe degeneration of the spine and sacroiliac joints. No acute bony lesions. IMPRESSION: 1. Cirrhosis. Portal hypertension. Splenomegaly. 2. Large ascites. 3. Moderately large left pleural effusion. This exam was performed using automated exposure control, adjustment of mA or kV according to patient size, and/or use of iterative reconstruction technique Electronically signed by Prince Cramer 09/30/2018 6:38 AM
[2018-09-30] MEDS ORDERED: PHENERGAN IV PRN (07:14)
--- NOTE | 2018-09-30 08:10 | EKG Report ---
Test Performed on : 09/30/2018 06:02:16 AM Test Reason : ED. NO EKG ORDER FOR MUSE Blood Pressure : / mmHG Vent. Rate : 103 BPM Atrial Rate : 012 BPM P-R Int : 000 ms QRS Dur : 080 ms QT Int : 522 ms P-R-T Axes : 000 012 030 degrees QTc Int : 683 ms Accelerated Junctional rhythm. Nonspecific T wave abnormality Prolonged QT Abnormal ECG When compared with ECG of 31-AUG-2018 14:12, (Unconfirmed) Junctional rhythm. has replaced Sinus rhythm. T wave inversion no longer evident in Lateral leads QT has lengthened Unconfirmed Result
--- NOTE | 2018-09-30 10:33 | Diag Imaging Result Doc PS360 ---
CT THORAX W/O CONTRAST - 09/30/2018 INDICATION: SOB COMPARISON: None FINDINGS: There is a large left pleural effusion with about 75% opacification of the left hemithorax. No significant right pleural effusion. No infiltrates throughout the lungs. No significant mediastinal shift. Heart size is normal. There is large ascites. IMPRESSION: Large left pleural effusion, presumably a hepatic effusion. Large quantity of ascites. This exam was performed using automated exposure control, adjustment of mA or kV according to patient size, and/or use of iterative reconstruction technique Electronically signed by Prince Cramer 09/30/2018 10:31 AM
--- NOTE | 2018-09-30 12:04 | Diag Imaging Result Doc PS360 ---
US ABD PARACENTESIS W S/I - 09/30/2018 INDICATION: Cirrhosis,Ascites COMPARISON: 09/04/2018 FINDINGS: The risks and benefits of the procedure were discussed with the patient. All questions were answered. Written and verbal consent was obtained. Ultrasound scanning demonstrated ascites. Overlying skin was prepped and draped in sterile fashion. Local anesthesia was achieved with injection of 10 cc 1% lidocaine. The paracentesis catheter was advanced until the return of ascites fluid. 7.7 L of dark iam fluid was aspirated. The catheter was withdrawn intact. There were no known complications. IMPRESSION: Technically successful ultrasound-guided paracentesis with no known complications. Electronically signed by Shaan Duke 09/30/2018 12:01 PM
[2018-09-30] MEDS: LACTULOSE PO SCH ×2 (12:09→20:26)
[2018-09-30] MEDS: VITAMIN B-1 PO SCH (12:09)
[2018-09-30] MEDS: THERA M PLUS PO SCH (12:09)
[2018-09-30] MEDS: FLOMAX PO SCH ×2 (12:09→20:26)
[2018-09-30] MEDS: FOLIC ACID PO SCH (12:09)
--- NOTE | 2018-09-30 12:15 | Diag Imaging Result Doc PS360 ---
EXAM: US ABDOMEN-COMPLETE INDICATION: Cirrhosis,Ascites COMPARISON: 11/10/2017 FINDINGS: There is large volume ascites. The gallbladder appears normal with no stones, wall thickening, or pericholecystic fluid. The common bile duct is normal in diameter. Sonographic Jerez's sign was reported to be negative. The liver contour is vaguely nodular consistent with cirrhosis. The liver echotexture is increased diffusely suggesting hepatic steatosis. No discrete hepatic mass is identified. Portal venous flow is hepatopetal. The pancreas is obscured. The aorta is also obscured. The IVC is unremarkable. The spleen is very mildly prominent measuring up to 13.7 cm in length. The kidneys are grossly unremarkable. IMPRESSION: 1.Large volume ascites. 2.Cirrhotic liver with increased echotexture diffusely suggesting hepatic steatosis. Electronically signed by Shaan Duke 09/30/2018 12:12 PM
[2018-09-30 12:20] LABS: TOTAL PROT BODY FLUID 1.1 g/dL
[2018-09-30 12:23] LABS: GLUCOSE BODY FLUID 83 mg/dL
[2018-09-30 12:36] LABS: LDH BODY FLUID 50 U/L
[2018-09-30 13:07] LABS: BODY FLUID SOURCE PERITONEAL FLUID; MONOS 96 %; POLYS 4 %; WBC BF 71 /cumm
[2018-09-30] MEDS ORDERED: LASIX PO SCH (13:45)
[2018-09-30] MEDS ORDERED: ALDACTONE PO SCH (13:45)
[2018-09-30 14:00] LABS: AGAP 12; BUN 8 mg/dL (8-22); CALCIUM 8.8 mg/dL (8.8-10.2); CHLORIDE 90 mmol/L (98-107); COSMO 266; CREATININE 0.7 mg/dL (0.7-1.2); ESTIMATED GFR > 60; GLUCOSE 95 mg/dL (70-104); POTASSIUM 3.9 mmol/L (3.5-5.1); SODIUM 134 mmol/L (136-145); TCO2 32 mmol/L (25-35)
[2018-09-30] MEDS ORDERED: ALBUMIN 25% IV ONE (14:20)
[2018-09-30] MEDS: MORPHINE IV PRN (14:40)
[2018-09-30] MEDS: PROTONIX PO SCH (18:31)
[2018-10-01] MEDS: LOVENOX SUBQ SCH (06:34)
[2018-10-01] MEDS: SYNTHROID PO SCH (06:35)
[2018-10-01] MEDS: PROTONIX PO SCH ×2 (06:35→18:06)
[2018-10-01 07:38] LABS: AGAP 10; BUN 10 mg/dL (8-22); CALCIUM 8.6 mg/dL (8.8-10.2); CHLORIDE 89 mmol/L (98-107); COSMO 265; CREATININE 0.9 mg/dL (0.7-1.2); ESTIMATED GFR > 60; GLUCOSE 127 mg/dL (70-104); POTASSIUM 3.4 mmol/L (3.5-5.1); SODIUM 132 mmol/L (136-145); TCO2 33 mmol/L (25-35)
[2018-10-01] MEDS ORDERED: LASIX PO SCH ×2 (09:00→19:23)
[2018-10-01] MEDS ORDERED: ALDACTONE PO SCH ×2 (09:00→19:23)
[2018-10-01] MEDS: LACTULOSE PO SCH ×2 (09:16→20:01)
[2018-10-01] MEDS: THERA M PLUS PO SCH (09:17)
[2018-10-01] MEDS: FOLIC ACID PO SCH (09:17)
[2018-10-01] MEDS: VITAMIN B-1 PO SCH (09:17)
[2018-10-01] MEDS: FLOMAX PO SCH ×2 (09:17→20:01)
--- NOTE | 2018-10-01 09:38 | GASTROENTEROLOGY CONSULTATION ---
DATE: 10/01/2018 REASON FOR CONSULTATION: Decompensated cirrhosis with ascites. HISTORY OF PRESENT ILLNESS: Mr. 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 The patient reports increased abdominal distention and weight gain. Today he weighs 190 pounds. He says he has been compliant with diuretics including Lasix and spironolactone as well as a low salt diet. He denies any alcohol use since early this year. He has not been able to followup in outpatient GI clinic given insurance coverage. [facility] and [facility] to [facility] is pending. Per his records, it looks like he takes about 20 mg of Lasix twice a day and 12.5 mg of spironolactone. His last paracentesis was on 09/04/2018 when 6.7 liters was removed. Today he denies any chest pain. He does have some mild shortness of breath. No nausea, vomiting, hematemesis, rectal bleeding, or melena. He is compliant with lactulose twice a day and has been having about 3 to 4 bowel movements daily, no confusion. PAST MEDICAL HISTORY: 1. Nik-en-Y gastric bypass about 20 years ago. 2. Tobacco abuse. 3. Alcoholism. 4. Decompensated cirrhosis. 5. Ascites. 6. History of GI bleed from marginal ulcers. PAST SURGICAL HISTORY: Nik-en-Y gastric bypass. FAMILY HISTORY: He has a brother and sister who are both alcoholics. No family history of liver disease or GI malignancies. SOCIAL HISTORY: He smokes about 3 to 4 cigarettes a day. He discontinued alcohol back in early June. No history of drug abuse. He lives with his parents. He has a daughter who lives nearby and he estranged from his . ALLERGIES: NO KNOWN DRUG ALLERGIES. HOME MEDICATIONS: 1. Synthroid. 2. Lactulose 30 mL twice a day. 3. Folic acid. 4. Thiamine. 5. Multi-Vitamin. 6. Protonix 40 mg twice a day. 7. Flomax. REVIEW OF SYSTEMS: As per HPI. Otherwise 12 point review of systems is negative. PHYSICAL EXAMINATION: VITAL SIGNS; Temperature 98.1 degrees, heart rate is 97, respiratory rate 18, blood pressure 108/66, O2 saturation 95% on room air. GENERAL: Patient is chronically ill appearing. Awake, alert, in no acute distress. HEENT: Scleral icterus is present. Extraocular motor intact. Oropharynx is clear. Poor dentition. Moist mucous membranes. NECK: Supple, no jugular venous distention or lymphadenopathy. CARDIAC: Tachycardic, regular, no murmur. LUNGS: Decreased breath sounds in the left posterior lung field. Clear on the right. No wheezing or crackles. ABDOMEN: Obese, with notable ascites, bulging flanks. Tenderness to palpation that is moderate throughout. No rebound or guarding. Bowel sounds are present. EXTREMITIES: No cyanosis, clubbing or edema. SKIN: Deep jaundice. NEURO: Cranial nerves II-XII grossly intact. Moving all extremities symmetrically. No asterixis. LABORATORY DATA: White count of 9.3, hemoglobin 9.9 from 8.1 on the day of discharge. MCV of 101. Platelets of 181,000. INR is 2.03. Sodium 134, potassium 3.9, chloride 90, bicarb 32, BUN 8, creatinine 0.7, glucose 95. Total bilirubin of 12.7. AST of 105, ALT of 29, alk phos of 143, ammonia 56. Total protein of 8.2. Albumin 3.0. TSH of 4.88. Urinalysis shows proteinuria, red blood cells and bilirubin as well as ketones. U-tox is negative. IMAGING: CT of the abdomen and pelvis with IV contrast only shows cirrhosis, portal hypertension, splenomegaly, large ascites and a moderately large left pleural effusion. Chest x-ray shows pleural effusion with atelectasis. Abdominal ultrasound shows ascites as well as cirrhosis with hepatic steatosis. CT of the chest shows left large pleural effusion. Diagnostic and therapeutic paracentesis revealed 7.7 liters of dark iam ascites with ascites fluid analysis revealing 71 enucleated white blood cells. ASSESSMENT/PLAN: Mr. Kenroy Nath is a 53 -year-old gentleman with history of Nik-en-Y gastric bypass complicated by bleeding marginal ulcers, decompensated alcoholic cirrhosis with ascites, jaundice, hepatic encephalopathy who presents with worsening ascites and weight gain. The patient is status post diagnostic and therapeutic paracentesis with removal of 7.7 liters of fluid today. There is no evidence of SBP. He has been given 50 grams of albumin. His chest CT and x-ray are notable for a left hepatic hydrothorax. No obvious superimposed pneumonia. His urinalysis is negative for urinary tract infection. Urine culture and ascites cultures are pending. His calculated MELD sodium is 26. His bilirubin has continued to climb since his last admission and also his admission in June. 1. Decompensated alcohol cirrhosis. Cirrhosis is secondary to alcoholism. His Child Espinoza C with MELD sodium of 26. 2. Ascites. He is status post diagnostic and therapeutic paracentesis that is negative for SBP. We will start him on 50 mg of Lasix and 100 mg of spironolactone. Resume low sodium diet. 3. Hepatic encephalopathy. None currently. We will continue his lactulose 30 mL twice a day to titrate for 2 to 3 bowel movements per day. Avoid sedating medications. 4. Esophageal variceal screening. Patient had an esophagogastroduodenoscopy in August of 2018 that showed portal hypertensive gastropathy but no evidence of esophageal varices. 5. HCC screening. No evidence of hepatoma on imaging. He will need repeat liver ultrasound every 6 months. 6. Liver transplant evaluation. He was been absent from alcohol for at least the last 4 months. He does not have any known cardiac or pulmonary history. I have called Dr. Brigitte Mills at [facility] and we are faxing over the patient's complete medical record to the clinic for liver transplant evaluation to be done as an outpatient. We would like for him to be seen with Dr. Mills the first week of October. The phone number to contact is [phone]. Again this is Dr. Brigitte Mills. 7. History of upper gastrointestinal bleed secondary to marginal ulcers. Continue Protonix 40 mg twice a day, avoid nonsteroidal antiinflammatory drugs and blood thinners. 8. Left pleural effusion secondary to hepatic hydrothorax. Diuretics as above. 9. Severe protein calore malnutrition secondary to history of alcoholism and cirrhosis. Continue multivitamins, thiamine, folate and high protein calorie diet. 10.Alcoholism. Patient has been in remission for at least the last 4 months. We will continue to encourage abstinence from alcohol. Thank you for this consultation. We will follow with you. Please call with any questions or concerns. [facility]
[2018-10-01] MEDS: MORPHINE IV PRN (11:33)
--- NOTE | 2018-10-01 12:07 | HISTORY AND PHYSICAL ---
PRIMARY CARE PROVIDER: [facility] [place]. DATE AND TIME: 09/30/2018 at 0500. SUGAR PRESSER: Dr. Bennett. CHIEF COMPLAINT: Abdominal pain. HISTORY OF PRESENT ILLNESS: The patient complains of abdominal pain and fluid in his abdomen. He states that since he has had this drained recently in Aug, 2018, in which they took off 6.7 liters that he has steadily progressively gotten worse. He states that yesterday evening he began having abdominal pain that is tight in nature. The patient does have a distended abdomen. He also is reporting some associated shortness of breath. He actually reports that the shortness of breath is better when he is lying back some rather than sitting up. During his most recent admission, he was found to have decompensated cirrhosis of the liver. He does have a history of coagulopathy as well as well as macrocytic anemia and did have a large left pleural effusion. The patient denies any headache, dizziness, cough or chest pain. He denies any fever, body aches or chills. He denies any nausea or vomiting. He denies any hematochezia or melena. He did report that he has had some slight dysuria. He also reports that he is having some slight discomfort in his left scrotal area where he has a cyst which was recently noted to be an infected epidermal inclusion cyst on the scrotum which spontaneously drained. He denies any pain, numbness, tingling or swelling of the extremities. He also denies any recent changes to any of his medications or any new medicines. Upon evaluation in the ER, the patient did have generalized tenderness noted on palpation. Hemoglobin was 9.8 and hematocrit 30.3 which does appear to be his baseline and actually improved from his baseline. He does have an elevated INR of 2.03. Potassium level was low at 2.8. He also has an elevated total bilirubin of 12.7. His other liver enzymes were elevated as well. His urine did show large blood, moderate bilirubin though was negative for nitrites, leukocytes, white blood cells and bacteria. We did perform a CT of the abdomen and pelvis in the ER which did show cirrhosis, portal hypertension, splenomegaly, large ascites and moderately large left pleural effusion. We did go ahead and performed a chest x-ray for a full lung view on the left which did show a moderate to large left pleural effusion, similar to prior exam. At this time the patient will be placed for patient admission. REVIEW OF SYSTEMS: A 14-point review of systems was conducted with the patient and all were negative except for pertinent positives as mentioned in the above HPI. PAST MEDICAL HISTORY: 1. Alcoholic cirrhosis with admissions for acute decompensation though the patient reports that he has not been drinking for 8 months. 2. He also has a history of ascites requiring paracentesis which was most recently performed in Aug, 2018. 3. Longstanding alcohol dependence though the patient reports that he quit drinking several months ago. 4. Hypothyroidism. 5. Depression. 6. Recent infected epidermal inclusion cyst on the scrotum that spontaneously drained. 7. GERD. 8. History of gastric ulcers. PAST SURGICAL HISTORY: He has had a evelin-en-y gastric bypass as well as paracentesis. SOCIAL HISTORY: The patient still does currently smoke cigarettes though has cut this back drastically to 3-4 cigarettes a day though he has been smoking since his 20s. He did have reported several years where he drank up to a fifth of vodka a day though he states he has not drank in several months. There is no known history of illicit drug use. FAMILY HISTORY: Positive for his mother having a history of heart disease requiring cardiac stents. His father had a history of back problems. One of his siblings does have liver disease as well. ALLERGIES: The patient has no known allergies. HOME MEDICATIONS: 1. Folic acid 1 mg p.o. daily. 2. Lactulose 30 mL p.o. b.i.d. 3. Levothyroxine sodium 50 mcg p.o. q a.m. 4. Thera-M Plus 1 tablet p.o. daily. 5. Protonix 40 mg p.o. twice daily. 6. Flomax 0.4 mg p.o. b.i.d. 7. Thiamine 100 mg p.o. daily. DIAGNOSTIC DATA: White blood cell count is 9360, hemoglobin 9.9, hematocrit 30.3, platelet count 181,000, PT 24.4, INR 2.03, sodium 133, potassium 2.8, chloride 86, serum bicarb 30, BUN 9, creatinine 0.8, GFR greater than 60, glucose 83, calcium 8.9, magnesium 2, total bilirubin 12.71, AST 105, ALT 29, alkaline phosphate 143, ammonia level 56. Urinalysis was obtained via clean catch and was positive for protein, ketones, blood, bilirubin. It was negative for glucose, nitrites, leukocytes, white blood cells or bacteria. EKG showed accelerated junctional rhythm with a prolonged QT at a rate of 103 with QTc of 683. Chest x-ray showed left-sided pleural effusion with atelectasis. CT of abdomen and pelvis showed cirrhosis. Portal hypertension. Splenomegaly. Large ascites. Moderately large left pleural effusion. PHYSICAL EXAMINATION: VITAL SIGNS: Temperature 97.9, heart rate 87, respirations 18, blood pressure 118/74 with oxygen saturation of 95% on room air. GENERAL: Mr. Nath is a pleasant 53-year-old male who is resting on the ER stretcher. He is in no acute distress. He is awake and alert and is able to answer questions appropriately. HEENT: Head is atraumatic, normocephalic. Pupils are equal, round, reactive to light and 3 mm bilaterally and brisk. There was jaundice noted to the bilateral sclera. Oral mucosa is moist. Oropharynx is clear. NECK: Supple. Trachea midline. CARDIOVASCULAR: The patient has S1 and S2 present. No murmurs, gallops or rubs appreciated with a regular rate and rhythm. PULMONARY: The patient has symmetrical chest expansion bilaterally. Lung sounds are clear in full lung pink on the right though he does have diminished lung sounds noted on the left. ABDOMEN: Slightly firm and is distended. He does have generalized tenderness noted upon palpation. Bowel sounds are present in all 4 quadrants and normoactive. GENITOURINARY: The patient was complaining of a cyst on the left side of his scrotum. Upon examination, there was no palpable nodule though the patient is reporting this area was tender. There does not appear to be any erythema, wound or any drainage noted. The ER the patient health care facility administrator, Vicki Spaulding, was present at bedside with me during this portion of the exam. EXTREMITIES: No cyanosis or edema noted. Pulse, motor and sensory are intact in all extremities. Radial and pedal pulses are 2+ bilaterally. INTEGUMENTARY: The patient's skin does have jaundice noted though it is warm, dry and intact. NEUROLOGICAL: The patient is alert and oriented to person, place, time and situation. He is able to move all extremities. He does not have any focal neurological deficits noted at this time. ASSESSMENT AND PLAN: 1. Cirrhosis with ascites. Further treatment and evaluation of this. We have placed order for abdominal ultrasound as well as ultrasound-guided paracentesis and peritoneal fluid studies to be performed this morning. The patient is n.p.o. at this time. He has not had any fever. He has been afebrile since arriving to the ER and has no leukocytosis noted. We will await peritoneal fluid study results. We will continue his earlier prescribed medicines of lactulose. We have placed a consult with Dr. De Luna with gastroenterology. We will await his evaluation and further recommendations for management. 2. Ascites. We will continue treatment as mentioned above in #1. 3. Left pleural effusion. The patient has had this persistent left pleural effusion. This could be related to hepatic hydrothorax. He is reporting shortness of breath. This could be combination of his pleural effusion and his ascites though we will place a consult with pulmonology with Dr. Manuel. We will await his evaluation and further recommendations for management. 4. Coagulopathy. The patient does have an elevated INR at 2.03 though he has no signs of bleeding at this time. Hemoglobin and hematocrit are stable and actually improved from his previous results. We will continue to follow. 5. Hypokalemia with a potassium of 2.8. His magnesium was within normal limits. We have ordered for him to receive 60 mEq of potassium chloride IV. We will repeat a BMP later on in the afternoon. 6. Hypothyroidism. We will continue his levothyroxine. 7. GERD and history of gastric ulcers. We will continue his Protonix. 8. VTE prophylaxis. He will be provided with SCDs. We will hold any anticoagulants given his history of gastric ulcers as well as his coagulopathy. He will be placed on medical floor with telemetry. He will have vital signs q 4 hours with strict intake and output. Further orders and recommendations pending hospital course, diagnostic studies and physician evaluation. Dictated by DIANDRA Lovelace for Harpreet Whalen MD I have performed a face to face diagnostic evaluation. Labs/ Xrays- reviewed. Exam- chest- clear, ABD- distended A/P- Cirrhosis, ascites. - Admit, schedule paracentesis, GI consult. Dr. Whalen cc: Harpreet Whalen MD [facility]
[2018-10-01] MEDS ORDERED: ALBUMIN 25% IV ONE (19:16)
--- NOTE | 2018-10-01 21:28 | PROGRESS NOTE ---
DATE: 10/01/2018 INTERVAL HISTORY: He received intravenous albumin yesterday which he tolerated well. Gastroenterology has increased his diuretic dose to 100 mg of spironolactone and 40 mg of Lasix. However, his blood pressure appears to have dropped. He is still feeling very weak. Family is at bedside. I discussed with them about need for liver transplantation in the future. Currently, temperature 97.4 degrees, pulse of 103, respiratory rate 18, blood pressure 89/49, saturating 94% on room air. PHYSICAL EXAMINATION: General: Appears very weak and sleepy. Oral Cavity: Dry. Lungs: Adequate air entry in right hemithorax with decreased air entry with inspiratory crackles in left hemithorax. Abdomen: Distended, tympanic to percussion. Generalized tenderness. Extremities: Bilateral lower extremity edema extending up to thigh. Eyes: He has scleral icterus, which is prominent. LABS: Suggestive of sodium of 132, potassium of 3.4, chloride of 89. His kidney function is normal. Peritoneal fluid Gram stain and culture were unremarkable. No new imaging. ASSESSMENT AND PLAN: 1. Alcoholic cirrhosis, with Child Espinoza class C and MELD score of 27, with worsening ascites, status post paracentesis on 09/30/2018 of 7.7 L, and intravenous albumin. Continue Lasix and spironolactone as per Gastroenterology recommendation, and I will start holding parameters on that. 2. Left pleural effusion. No further recommendation from Pulmonology. He is not in respiratory distress. No urgent thoracentesis indicated. 3. Hypotension: Due to cirrhosis, intravascular volume depletion and diuretic use. I will put hold parameters on Diuretics. Give additional IV albumin considering his large volume paracentesis. 3. Coagulopathy, in the setting of cirrhosis, and also history of portal gastropathy and bleeding ulcers in the past. 4. Hypothyroidism. Continue his home levothyroxine. 5. Hypokalemia, being repleted. I will continue his home pantoprazole for recent history of bleeding ulcers. 6. Disposition. The patient remains inside the hospital currently, to be monitored for the next 24 hours. I will also have Physical Therapy evaluate him. I called [facility] today for possible transfer for liver transplant evaluation. However, [facility] is on diversion for intensive care unit and medical and surgical floor beds, and they suggested I should call back tomorrow if needed. I had discussed the patient's clinical condition and plan with the patient's parents and patient himself at bedside. All of their questions were answered. He could be considered for discharge home tomorrow with outpatient [facility] follow up for transplant evaluation. cc: Myron Grimaldo MD [facility]
--- NOTE | 2018-10-01 23:54 | PROVIDER PROGRESS NOTE ---
Progress Note SUBJECTIVE: No acute overnight events. No N/V/F, CP, SOB. Abdominal pain improved after LVP. He is having good UOP. Reports generalized weakness and fatigue. No confusion. He is having bowel movements. OBJECTIVE: Last Vital Signs Temp 97.4 F L 10/01/18 23:40 Pulse 106 H 10/01/18 23:40 Resp 18 10/01/18 23:40 BP 92/50 10/01/18 23:40 Pulse Ox 97 10/01/18 23:40 Height 5 ft 9 in Weight 190 lb 9 oz GEN: awake, alert, NAD, chronic ill-appearing HEENT: scleral icterus present, EOMI, MMM NECK: supple, no jvd PULM: CTAB, anteriorly CV: RRR, no murmurs ABD: distended, minimally TTP throughout, BS present, +ascites improved EXT: no cce SKIN: jaundiced NEURO: no asterixis LABS: 09/30/18 10/01/18 02:11 06:47 WBC 9.36 Hgb 9.9 L Sodium 132 L Potassium 3.4 L Chloride 89 L Carbon Dioxide 33 BUN 10 Glucose 127 H ASSESSMENT/PLAN: Mr. Kenroy Nath is a 53 -year-old gentleman with history of Nik-en-Y gastric bypass complicated by bleeding marginal ulcers, decompensated alcoholic cirrhosis with ascites, jaundice, hepatic encephalopathy who presents with worsening ascites and weight gain. The patient is status post diagnostic and therapeutic paracentesis with removal of 7.7 liters on 09/30 without evidence of SBP. Renal function preserved. #Decompensated ETOH cirrhosis: MELD-Na 26 yesterday - Ascites: started lasix 40mg and aldactone 100mg PO once daily today; low NA diet, I/O - EV screening: no history of varices, repeat EGD yearly - HCC screening: no evidence of HCC on U/S - PSE: controlled; continue lactulose BID, titrate for 2-3 BMs daily - OLT: spoke with Dr. Mills at [facility] yesterday who would like patient to be scheduled for appointment at beginning of October for OLT evaluation. He appears to be slowly deteriorating and may benefit from hospital transfer #Alcoholism: in remission; last drink over 4 months ago #Tobacco abuse: stressed importance of abstinence #Marginal ulcers: continue PPI BID #Hepatic hydrothorax: diuresis as above #Severe protein calorie malnutrition: high protein calorie diet, MVI, folate, thiamine Will follow with you. Please call with questions. If unable to arrange transfer, patient can be discharged from GI perspective tomorrow
[2018-10-02] MEDS: SYNTHROID PO SCH (06:44)
[2018-10-02] MEDS: PROTONIX PO SCH ×2 (06:44→18:01)
[2018-10-02] MEDS: LOVENOX SUBQ SCH (06:44)
[2018-10-02 07:51] LABS: BASO# 0.01 X1000 (0.0-0.2); BASO% 0.1 % (0.0-0.8); EOS# 0.04 X1000 (0.0-0.7); EOS% 0.3 % (0.0-10.0); HEMATOCRIT 30.1 % (42.0-52.0); HEMOGLOBIN 9.9 g/dL (14.0-18.0); IMM GRAN# 0.05 X1000 (0.0-0.04); IMM GRAN% 0.4 % (0.0-0.5); LYMPH# 0.54 X1000 (1.2-3.4); LYMPH% 4.4 % (20.5-51.1); MCH 33.1 PG (27-31); MCHC 32.9 g/dL (33-37); MCV 100.7 FL (81-99); MONO# 0.75 X1000 (0.11-0.59); MONO% 6.1 % (1.7-9.3); MPV 9.2 FL (7.4-10.4); NEUT# 10.85 X1000 (1.4-6.5); NEUT% 88.7 % (42.2-75.2); PLT 118 X1000 (130-400); RBC 2.99 XMIL (4.7-6.1); RDW 23.2 % (11.5-14.5); WBC 12.24 X1000 (4.8-10.8)
[2018-10-02 08:01] LABS: ALB/GLOB RATIO 0.8; ALBUMIN 2.8 g/dL (3.5-5.0); CALCIUM 9.1 mg/dL (8.8-10.2); CREATININE 1.8 mg/dL (0.7-1.2); POTASSIUM 3.7 mmol/L (3.5-5.1); TOTAL BILIRUBIN 10.25 mg/dL (0.20-1.00); TOTAL PROTEIN 6.1 g/dL (6.3-8.3)
[2018-10-02] MEDS ORDERED: ALBUMIN 25% IV ONE (09:24)
[2018-10-02] MEDS ORDERED: LEVAQUIN 500 MG/D5W 500 MG/100 ML IVPB IV SCH (10:00)
[2018-10-02] MEDS: FLOMAX PO SCH ×2 (10:26→20:35)
[2018-10-02] MEDS: FOLIC ACID PO SCH (10:26)
[2018-10-02] MEDS: THERA M PLUS PO SCH (10:27)
[2018-10-02] MEDS: LACTULOSE PO SCH ×2 (10:27→20:35)
[2018-10-02] MEDS: VITAMIN B-1 PO SCH (10:27)
--- NOTE | 2018-10-02 12:29 | CONSULTATION ---
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 HISTORY OF PRESENT ILLNESS: This is a 53-year-old male with a medical history of alcoholic cirrhosis, longstanding alcohol dependence, depression, hypothyroidism, gastroesophageal reflux disease, gastric ulcers, diverticulosis of the colon, and recent infected epidermal inclusion cyst. He presented to the ER yesterday with acute abdominal pain. CT of the abdomen and pelvis with contrast in the ER revealed cirrhosis, portal hypertension, splenomegaly, large ascites and moderately large left pleural effusion with some passive atelectasis. He has been admitted and scheduled for paracentesis this morning. He currently is lying in bed. There is no active distress noted. He reported that he just came back from paracentesis with 7.7 L of fluid aspirated. He states he is feeling better. He reports some constant pressure on his left chest for a few weeks. He reports worsening weakness, nausea, vomiting, diarrhea, some mild cough, worsening shortness of breath especially with activities, and poor appetite. He has no wheezing, fever, chills, hemoptysis, chest pain or palpitations. PAST MEDICAL AND SURGICAL HISTORY: 1. Alcoholic cirrhosis with admission for acute decompensation most recently in 06/2018 and 08/2018, status post paracentesis on 09/04/2018 with 6.7 L of fluid aspirated at that time. 2. Longstanding alcohol dependence, quitting drinking in 06/2018. 3. Depression. 4. Hypothyroidism. 5. Gastroesophageal reflux disease. 6. History of gastric ulcers, status post upper GI endoscopy on 09/03/[address] Bennett. 7. Diverticulosis of the colon. 8. Recent infected epidermal inclusion cyst on the scrotum that spontaneously drained. 9. Status post Nik-en-Y gastric bypass. 10.Status post hernia repair. 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 SOCIAL HISTORY: The patient lives at home with his parents. He has home healthcare. He has smoked up to 2 packs per day since the age of early 20s and currently smokes 4 cigarettes daily. He has a longstanding alcohol dependence and quitting drinking 4 months ago. He has no illicit drug use. FAMILY HISTORY: Alcoholism. ALLERGIES: No known drug allergies. REVIEW OF SYSTEMS: A 10-point review of systems was conducted, and the pertinent is listed within the HPI, otherwise noncontributory. PHYSICAL EXAMINATION: Vital signs: Temperature is 98.1, blood pressure 116/70, pulse 101, respiratory rate 17, oxygen saturation 95% on room air. General: Chronically ill appearing, malnourished, pale with some mild jaundice, lying in bed, with no acute distress. HEENT: Atraumatic. Trachea midline. Mucosa pink and slightly dry. Respiratory: Respirations even and unlabored. Auscultation revealed diminished breathing sounds, significant on the left and mild on the right, with early inspiratory crackles bibasilarly. Cardiovascular: Regular rate and rhythm. Gastrointestinal: Bowel sounds normoactive in all 4 quadrants. Soft, nondistended, with some tenderness on palpation. Extremities: No pedal edema. No cyanosis. No clubbing. Neurologic: Alert and oriented x3. Follows commands. Speech fluent. DIAGNOSTIC DATA: White blood cells 9.36, hemoglobin 9.9, hematocrit 30.3, platelets 181. Sodium is 133, potassium 2.8, chloride 86, carbon dioxide 40, BUN is 9, creatinine 0.8, glucose 83. TSH is 4.88. IMAGING DATA: Chest CT without contrast revealed large left pleural effusion, presumably hepatic effusion and large quantity of ascites. ASSESSMENT: This is a 53-year-old male with a medical history of alcoholic cirrhosis, longstanding alcohol dependence, depression, hypothyroidism, gastroesophageal reflux disease, gastric ulcer, diverticulosis of the colon. He has been admitted with decompensated cirrhosis of the liver and large left pleural effusion. 1. Large left pleural effusion, presumably hepatic effusion. 2. Shortness of breath. 3. Large quantity of ascites, status post paracentesis today and on 09/04/2018 for end stage liver disease. 4. Ongoing tobacco use. PLAN: 1. Supplemental oxygen as needed. 2. The patient states he would like to transfer to [facility] where a liver transplant has been talked about. 3. No thoracentesis planning at this time. 4. Agree to start diuretics as his kidney can tolerate. 5. Continue GI and DVT prophylaxis. 6. Highly recommend the patient to quit smoking. 7. Further recommendations pending hospital course. Thank you for the courtesy of this consult. Dictated by DIANDRA Ng for Ambika Manuel MD cc: DIANDRA Ng MD [facility]
[2018-10-02] MEDS ORDERED: NS 500 ML IV ONE ×3 (12:34→23:23)
[2018-10-02] MEDS ORDERED: NS 1,000 ML IV SCH (12:45)
--- NOTE | 2018-10-02 12:58 | Diag Imaging Result Doc PS360 ---
EXAM: CHEST-PORTABLE HISTORY: sob TECHNIQUE: Portable chest single view COMPARISON: 08/30/2018 FINDINGS: Decrease in the size of the left pleural effusion. There is atelectasis or an infiltrate in the left base. Right lung remains clear. No cardiomegaly. Decreased vascular distention. IMPRESSION: Interval improvement. Electronically signed by Kole Yoo 10/02/2018 12:56 PM
[2018-10-02 13:19] LABS: INR 4.12
[2018-10-02 13:23] LABS: PROTIME 42.7 Seconds (11.0-16.0)
[2018-10-02 13:33] LABS: URINE SOURCE CATH
[2018-10-02 13:41] LABS: BILIRUBIN URINE MODERATE (NEGATIVE); BLOOD URINE LARGE (NEGATIVE); COLOR ORANGE; GLUCOSE URINE NEGATIVE (NEGATIVE); KETONE URINE NEGATIVE (NEGATIVE); LEUKOCYTES URINE TRACE (NEGATIVE); NITRITE URINE NEGATIVE (NEGATIVE); PH URINE 5.5; PROTEIN URINE 30 mg/dL (NEGATIVE); SP GRAVITY URINE 1.032; TURBIDITY URINE TURBID (CLEAR); UROBILINOGEN URINE 12 mg/dL (NORMAL)
[2018-10-02 13:51] LABS: URINE WBC <10 /HPF (<10)
[2018-10-02 13:52] LABS: UR EPITHELIAL CELLS <10 /HPF (<10); URINE BACTERIA NEGATIVE /HPF; URINE CRYSTALS NONE SEEN; URINE YEAST NONE SEEN
[2018-10-02 13:55] LABS: UR CREAT RANDOM 220.3 mg/dL (14-26); UR SODIUM < 10 mmoll; UR UREA NITROGEN RANDOM 265 mg/dL
[2018-10-02] MEDS: PROAMATINE PO SCH ×2 (13:59→16:46)
[2018-10-02 14:52] LABS: BASO# 0.01 X1000 (0.0-0.2); BASO% 0.2 % (0.0-0.8); EOS# 0.02 X1000 (0.0-0.7); EOS% 0.3 % (0.0-10.0); HEMATOCRIT 25.5 % (42.0-52.0); HEMOGLOBIN 8.3 g/dL (14.0-18.0); IMM GRAN# 0.03 X1000 (0.0-0.04); IMM GRAN% 0.5 % (0.0-0.5); LYMPH# 0.49 X1000 (1.2-3.4); LYMPH% 8.2 % (20.5-51.1); MCH 33.1 PG (27-31); MCHC 32.5 g/dL (33-37); MCV 101.6 FL (81-99); MONO# 0.22 X1000 (0.11-0.59); MONO% 3.7 % (1.7-9.3); MPV 9.3 FL (7.4-10.4); NEUT# 5.19 X1000 (1.4-6.5); NEUT% 87.1 % (42.2-75.2); PLT 105 X1000 (130-400); RBC 2.51 XMIL (4.7-6.1); RDW 23.4 % (11.5-14.5); WBC 5.96 X1000 (4.8-10.8)
[2018-10-02] MEDS: LEVOPHED 8 MG in D5 1/2 NS 250 ML IV SCH ×2 (15:06→23:53)
[2018-10-02 15:19] LABS: ALB/GLOB RATIO 1.3; ALBUMIN 3.5 g/dL (3.5-5.0); CALCIUM 8.8 mg/dL (8.8-10.2); CREATININE 2.3 mg/dL (0.7-1.2); POTASSIUM 3.3 mmol/L (3.5-5.1); TOTAL BILIRUBIN 8.89 mg/dL (0.20-1.00); TOTAL PROTEIN 6.3 g/dL (6.3-8.3)
--- NOTE | 2018-10-02 15:24 | PROGRESS NOTE ---
DATE: 10/02/2018 SUBJECTIVE: This morning Mr. Nath refers to be feeling extremely weak and dizzy. Per the nursing staff, his blood pressures have been remarkably in the lower ranges. OBJECTIVE: Current vitals: Blood pressure is 96/50. The patient has had a blood pressure of 77 before. Pulse is 114, respiration is 20, temperature is 97.6 degrees. Patient is saturating 96% on room air. General exam: Mr. Nath is a 53-year-old gentleman. He is in bed. He is not in any distress. HEENT: Mucosa is pink, is dry and is about 3+ icteric. Chest: Air entry is bilaterally reduced, more so to the posterior lung pink. Cardiovascular: Tachycardic, but no murmurs. Abdomen: Soft, distended, minimally tender all over. There is positive fluid shifting dullness. 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 LABORATORY DATA: WBC is up to 12.24, hemoglobin is 9.9, platelet count of 118. Sodium is 131, potassium is 3.7, chloride is 88, creatinine went up to 1.8. ASSESSMENT: 1. Hypotension, most likely due to intravascular depletion complicated with diuretic therapy. We withheld the diuretics. We are going to give the patient 500 mL of bolus and food, and set up 50 mL of normal saline on him, and transfer him to the intensive care unit for close monitoring. He is currently on antibiotics. 2. Advanced alcohol cirrhosis with Espinoza-C score of 13, which makes it class C and MELD score 29 with low sodium, all indicative of poor prognosis. 3. Decompensated cirrhosis associated with ascites, portal hypertension, coagulopathy noted. 4. Alcohol hepatitis with hepatitis discriminant function score of 65. The patient will be needing to be on steroids. However, because of possibility of pneumonia and/or infection has not been completely ruled out, we will use pentoxifylline. 5. Status post large volume paracenteses. The patient will be given albumin. 6. Large size hydrothorax, presumably from hepatic hydrothorax. I think the patient is becoming symptomatic, so we will get Interventional Radiology to tap him. PLAN: So, today Mr. Nath is remarkably hypotensive. Creatinine has gone up. He looks extremely dry. We think patient has extreme intravascular depletion. He is getting a bolus of normal saline of 500, and a slow gentle hydration with 50. I have discontinued his diuretics and we will transfer him to ICU for close monitoring. We will use also Levophed if there is the need for pressor support, and I will start the patient on midodrine as well. Patient creatinine elevation is presumed to be due to intravascular depletion. We will do urinalysis. I do not think this is any form of hepatorenal syndrome. CRITICAL TIME SPENT: 45 minutes. cc: Hero López MD
--- NOTE | 2018-10-02 16:04 | GASTROENTEROLOGY PROGRESS NOTE ---
DATE: 10/02/2018 SUBJECTIVE: Patient is resting in bed. He complains of abdominal pain. He is requesting pain medication. He had paracentesis on 09/30 and 7.7 L of dark iam fluid was aspirated. The fluid culture is negative for any infections and the Gram stain showed 1+ white cells, no bacteria seen. The percent white cells was 71% but there was no actual count of white cells in the ascitic fluid. The patient denies any nausea, vomiting, vomiting blood. His last bowel movement was today. OBJECTIVE: Vital signs: Temperature 98.1 degrees, pulse rate of 104, respiratory rate of 26, blood pressure 178/45, saturating 97% on room air. Body weight of 190 pounds 9 ounces, BMI 28.1 kg/m2. General appearance: Moderately built, moderately nourished, lying in bed, in distress because of abdominal pain. HEENT: Positive pallor. Positive icterus. Neck: Supple. Abdomen: Discomfort in the periumbilical region. No rebound or guarding. Extremities: No cyanosis or clubbing. Neurologic: He is awake, alert, and answers questions. LABS: Hemoglobin and hematocrit are 9.9 and 30.1, white count of 12.24, platelet count of 118,000. INR of 2.03. Sodium 139, potassium 3.7, chloride of 88, bicarb 27, anion gap of 16, BUN of 17, creatinine 1.8, glucose of 141, calcium 9.1, total bilirubin is 10.25, AST 74, ALT 21, alkaline phosphatase 104, total protein 6.2, albumin 2.8. Urinalysis showing positive protein, positive ketones, large amount of blood, moderate bilirubin. Ascitic fluid study showing 71% white cells, glucose of 81, total protein of 1.1, SAGG could not be calculated. CT scan of the chest was done which showed large left pleural effusion, presumably hepatic effusion and a large amount of ascites was noted; this was done on 09/30. IMPRESSION AND PLAN: 1. Decompensated alcoholic cirrhosis. We will continue to follow the liver enzymes. 2. Ascites. He will continue on Lasix 40 mg once daily and Aldactone 100 mg daily. Continue a low sodium diet. Continue to watch strict I's and O's. Free fluid restriction of 1.5 L in 24 hours. 3. Hepatic encephalopathy. He will continue lactulose b.i.d., titrate for 2 to 3 bowel in 24 hours. 4. The patient is being referred to [facility] for liver transplant evaluation. If the patient's condition continues to worsen then he may benefit from inpatient transfer to [facility]. 5. Alcoholism. He quit alcohol 4 months ago. Continue on multivitamin, thiamine, and folic acid. 6. Tobacco abuse. Patient counseled to quit smoking. 7. History of Nik-en-Y gastric bypass, complicated by bleeding marginal ulcers. He will continue on PPIs b.i.d. 8. Hepatic hydrothorax. Continue on Lasix and Aldactone. 9. Protein-calorie malnutrition. He will continue a high protein diet, multivitamin, folate, and thiamine. 10. Increasing abdominal pain. This could be a sign of SBP so we will start the patient on Levaquin 500 mg once daily for a total of 10 days. 11. Gastrointestinal prophylaxis. PPIs. 12. Bowel regimen. Lactulose. 13. The above plan was discussed with the patient and all questions answered. Please call us with any further questions. cc: MD Hero Kimble MD MTDMichaela
[2018-10-02] MEDS ORDERED: TYLENOL PO PRN (16:06)
[2018-10-02] MEDS: NS 1,000 ML IV SCH (16:13)
[2018-10-02] MEDS ORDERED: CUBICIN 500 MG in NS 100 ML IV SCH (16:15)
[2018-10-02] MEDS ORDERED: TRENTAL PO SCH (17:00)
[2018-10-02] MEDS: MAXIPIME 2 GM in NS 100 ML IV SCH (17:05)
--- NOTE | 2018-10-02 19:23 | Diag Imaging Result Doc PS360 ---
EXAM: CHEST/ABD TUBE PLACEMENT - 10/02/2018 HISTORY: NGT placement TECHNIQUE: Portable exam for nasogastric tube placement COMPARISON: None. FINDINGS: The distal end of the nasogastric tube is mildly looped in the stomach, with its tip at expected location of the mid stomach. IMPRESSION: Tip of nasogastric tube in mid stomach. Electronically signed by Rob Monroy 10/02/2018 7:20 PM
--- NOTE | 2018-10-02 20:30 | PROGRESS NOTE ---
DATE: 09/30/2018 INTERVAL HISTORY: Mr. Nath was admitted for worsening abdominal pain, worsening ascites and dysuria. His urinalysis was unremarkable. He has already undergone paracentesis with removal of about 7 liters iam colored fluid, which he tolerated well. He says subjectively he is feeling better after paracentesis fluid removal. We discussed about his exam findings and I answered all of his questions. PHYSICAL EXAMINATION: Vital signs: Temperature 98.1 degrees, pulse 97, respiratory rate 18, blood pressure 106/61, oxygen saturation 95% on room air. General: Does not appear in any acute distress. No pallor, no cyanosis, no clubbing. HEENT: Marked scleral icterus. He has generalized spider angiomata affecting skin of his face and bilateral upper extremities. Lungs: Significantly decreased air entry on left hemithorax; adequate air entry on right hemithorax. Heart: S1, S2 normal. No murmur, rub or gallop. Abdomen: Distended, dull to percussion, generalized tender. No bowel sounds could not be appreciated. Extremities: He does have bilateral lower extremity edema. LABORATORY DATA: Suggestive of microcytic anemia because of liver disease, normal platelet count, elevated INR in the setting of liver cirrhosis, hyponatremia, hypokalemia. His potassium level has normalized. Normal kidney function. Highly elevated bilirubin, elevated alkaline phosphatase and TSH. Ascitic fluid WBC is less than 250. ASSESSMENT AND PLAN: 1. Abdominal pain, likely in the setting of worsening ascites without any evidence of spontaneous peritonitis status post abdominal paracentesis and removal of about 7 liters of fluid. I will give him 50 grams of intravenous albumin, start him on Lasix and spironolactone, and await further medication reconciliation to resume his home dose of diuretics. He is supposed to go to [facility] to have discussion about liver transplantation in the future as per my discussion with him. 2. Dysuria. The urinalysis does have any pyuria to suggest urinary tract infection. 3. Hypokalemia, currently being repleted. 4. Other. Continue folic acid and multivitamin for his history of chronic anemia; levothyroxine for history of hypothyroidism; thiamine for history of alcohol use disorder, which he claims to have quit 4 months ago; pantoprazole for history of portal gastropathy, to be completed on 10/12/2018; lactulose to prevent hepatic encephalopathy. 5. Disposition: I will monitor the patient today and my plan is to discharge him home tomorrow once his abdominal pain is better, which I assume it will be. Meanwhile, I will also get a gram stain analysis and peritoneal fluid culture. 6. Plan was discussed with the patient; all of his questions have been answered. cc: Myron Grimaldo MD MTDD
[2018-10-02] MEDS ORDERED: LACTULOSE PO ONE (23:21)
[2018-10-02] MEDS ORDERED: SODIUM BICARBONATE 8.4% IV PUSH ONE (23:28)
[2018-10-02] MEDS ORDERED: SOLU-CORTEF IV ONE (23:29)
[2018-10-02 23:56] LABS: ALLEN TEST YES; BE 1.8 mmoll (-3.0-3.0); BLOOD TYPE ARTERIAL; HCO3-(ACT) 26.3 mmoll (20.0-26.0); METHB 1.3 % (0.0-1.5); O2(CT) 12.8 mL/dL (15.0-23.0); O2HB 94.1 % (95.0-99.0); PCO2(98.6) 23 mmHg (35-45); PO2(98.6) 66 mmHg (60-100); SAMPLE BLOOD; SAO2 97.4 % (95.0-100.0); THB 9.6 g/dL (11.5-17.4)
[2018-10-02 23:57] LABS: MODALITY CANNULA
[2018-10-03] MEDS ORDERED: STERILE WATER INJ. ONE (00:05)
[2018-10-03] MEDS: NEO-SYNEPHRINE 50 MG in NS 250 ML IV SCH ×2 (00:07→06:55)
[2018-10-03] MEDS ORDERED: VERSED ONE (02:33)
[2018-10-03] MEDS ORDERED: NORCURON ONE (02:33)
[2018-10-03] MEDS ORDERED: AMIDATE ONE (02:33)
[2018-10-03] MEDS ORDERED: AMIDATE IV ONE (02:41)
[2018-10-03] MEDS ORDERED: QUELICIN IV ONE (02:41)
[2018-10-03] MEDS: QUELICIN ONE ×2 (02:43→02:46)
[2018-10-03] MEDS: MAXIPIME 2 GM in NS 100 ML IV SCH ×2 (03:58→17:05)
[2018-10-03] MEDS ORDERED: LACTULOSE PO ONE (04:00)
[2018-10-03] MEDS: MORPHINE IV PRN (04:03)
[2018-10-03 04:34] LABS: BLOOD TYPE ARTERIAL; SAMPLE BLOOD
[2018-10-03] MEDS: LEVOPHED 8 MG in D5 1/2 NS 250 ML IV SCH ×5 (04:34→23:42)
[2018-10-03 04:35] LABS: ALLEN TEST YES; BE -4.7 mmoll (-3.0-3.0); HCO3-(ACT) 21.3 mmoll (20.0-26.0); METHB 1.6 % (0.0-1.5); O2(CT) 13.9 mL/dL (15.0-23.0); O2HB 97.1 % (95.0-99.0); PCO2(98.6) 22 mmHg (35-45); PO2(98.6) 174 mmHg (60-100); SAO2 100.5 % (95.0-100.0); SRATE 14 BPM; THB 9.9 g/dL (11.5-17.4); TVOL 600 mL
[2018-10-03 04:37] LABS: MODALITY VENTILATOR
--- NOTE | 2018-10-03 04:44 | PROVIDER PROGRESS NOTE ---
Progress Note Pt had possible aspiration, was called to intubated pt, pt initally had low O2 sat in 80s, was bagged to high 90s, given 20 of etomidate and 150 suc, intubated with 8-0 ET tube, visualized passing throught the vocal cords with the glidescope, bilateral asuculation and color change end tidal confirmed placement, tube secured in place, well tolerated, no complications
[2018-10-03 05:04] LABS: BASO# 0.03 X1000 (0.0-0.2); BASO% 0.2 % (0.0-0.8); EOS# 0.02 X1000 (0.0-0.7); EOS% 0.2 % (0.0-10.0); HEMATOCRIT 26.5 % (42.0-52.0); HEMOGLOBIN 8.6 g/dL (14.0-18.0); IMM GRAN# 0.12 X1000 (0.0-0.04); IMM GRAN% 0.9 % (0.0-0.5); LYMPH# 1.51 X1000 (1.2-3.4); LYMPH% 11.3 % (20.5-51.1); MCH 33.5 PG (27-31); MCHC 32.5 g/dL (33-37); MCV 103.1 FL (81-99); MPV 9.8 FL (7.4-10.4); NEUT# 9.65 X1000 (1.4-6.5); NEUT% 72.4 % (42.2-75.2); PLT 186 X1000 (130-400); RBC 2.57 XMIL (4.7-6.1); RDW 24.2 % (11.5-14.5); WBC 13.33 X1000 (4.8-10.8)
[2018-10-03] MEDS: ATIVAN IV PRN (05:16)
[2018-10-03 05:32] LABS: BURR CELLS 1+; LYMPHS 11 % (21-51); MONO 16 % (1-9); SEGS 73 % (42-75)
[2018-10-03 05:39] LABS: ALB/GLOB RATIO 0.7; ALBUMIN 2.2 g/dL (3.5-5.0); CALCIUM 6.2 mg/dL (8.8-10.2); CREATININE 2.6 mg/dL (0.7-1.2); POTASSIUM 3.3 mmol/L (3.5-5.1); TOTAL BILIRUBIN 6.73 mg/dL (0.20-1.00); TOTAL PROTEIN 5.4 g/dL (6.3-8.3)
--- NOTE | 2018-10-03 06:26 | Diag Imaging Result Doc PS360 ---
CHEST-PORTABLE - 10/03/2018 INDICATION: aspiration? COMPARISON: 10/02/2018 FINDINGS: Stable nasogastric tube in the stomach. Stable small to moderate left pleural effusion. No infiltrates or edema. Heart size is normal. IMPRESSION: Left pleural effusion. Electronically signed by Prince Cramer 10/03/2018 6:24 AM
--- NOTE | 2018-10-03 06:27 | Diag Imaging Result Doc PS360 ---
CHEST-PORTABLE - 10/03/2018 INDICATION: ETT placement COMPARISON: 1:51 AM FINDINGS: There is an endotracheal tube in good position at T3. Stable nasogastric tube in stomach. Stable small to moderate left pleural effusion. IMPRESSION: Good endotracheal tube placement. Electronically signed by Prince Cramer 10/03/2018 6:25 AM
[2018-10-03] MEDS: SYNTHROID IV SCH (06:29)
[2018-10-03] MEDS: SODIUM CHLORIDE 0.9% INJ PRN (06:30)
[2018-10-03] MEDS ORDERED: CALCIUM GLUCONATE IV PUSH ONE (06:38)
[2018-10-03] MEDS: PROTONIX PO SCH (06:40)
[2018-10-03] MEDS: NS 1,000 ML IV SCH (06:53)
[2018-10-03] MEDS: LOVENOX SUBQ SCH (06:54)
[2018-10-03] MEDS ORDERED: THIAMINE 100 MG in NS 50 ML IV SCH (07:00)
[2018-10-03] MEDS: PROTONIX IV SCH ×2 (07:01→18:15)
[2018-10-03] MEDS: SOLU-CORTEF IV SCH ×2 (07:01→18:16)
[2018-10-03] MEDS: SODIUM CHLORIDE 0.9% INJ SCH ×2 (07:01→18:16)
[2018-10-03] MEDS ORDERED: LACTULOSE PO SCH ×2 (09:00→10:45)
[2018-10-03] MEDS: ZYVOX 600 MG/D5W 600 MG/300 ML IVPB IV SCH ×2 (09:11→20:11)
--- NOTE | 2018-10-03 09:21 | PROGRESS NOTE ---
DATE: 10/03/2018 SUBJECTIVE: This morning I saw Mr. Nath in the ICU. There was no family member at the bedside. He is currently intubated. I understand last night early this morning he has been more lethargic throughout the night, and he seems to have aspirated early this morning. The patient became more hypoxemic and was intubated by the ER physician (Dr. Melara). This morning he remains in the ICU intubated and on 2 pressors. OBJECTIVE: Vital Signs: Current vitals, blood pressure 99/55, pulse of 123, respirations 21, and temperature is 98.9 degrees. The patient has had about 100.5. General: Mr. Nath is a 53-year- old male. He is in bed. He is currently intubated and sedated. He is on mechanical ventilator. HEENT: His mucosa is pink and moist. He is about 2+ icteric. Chest: Air entry is bilaterally reduced. There are still crackles in the posterior lung pink. Cardiovascular: Tachycardic but no murmurs, no rubs, no gallops. Abdomen: Soft and is distended. There are positive fluid waves. Bowel sounds are hypoactive. Extremities: No pedal edema. 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 Pupils are minimally dilated, but they are reactive, and there is mild gag reflex. LABORATORY DATA: WBC is up to 22.33, hemoglobin is 8.6, and platelet count of 186,000. He has 73% of segments. No bands identified on the peripheral smear. Sodium is 132, potassium is 3.2, chloride is 108. Bicarb is down to 16. The gap is 8. Patient's creatinine is 2.6 which is worse than yesterday. Total bilirubin is also down to 6.72. AST and ALT almost normalized. Ammonia level is up to 304. IMAGING STUDIES: A chest x-ray this morning shows stable small to moderate left pleural effusion. The patient's current medications include cefepime 2 g q.12 and daptomycin. ASSESSMENT: 1. Persistent hypotension presumably multifactorial in etiology including possible sepsis and intravascular depletion. The patient is still on IV fluids. He is still needing 2 pressors for adequate blood pressure to maintain adequate blood pressure. He has been started on stress doses of steroids as well. 2. Advanced decompensated alcohol cirrhosis with MELD score of about 29 with low sodium. GI is on board. This is also complicated with ascites, portal hypertension, coagulopathy, and possible hepatic encephalopathy. 3. Acute hypoxemic respiratory failure, presumably combination of aspiration pneumonitis, and pleural effusion. The patient is currently being covered with antimicrobial therapy. Because of the suspicion of pneumonia, we will change the daptomycin to Zyvox. 4. Ascites status post large volume paracenteses. The fluid analysis was negative for SBP, however, yesterday patient started having some abdominal pain, and it is very possible that he has developed SBP as the source of the hypotension so he is being covered with IV antibiotics. 5. Left hepatic hydrothorax noted. 6. Altered mental status. I understand the patient progressively got worse with altered mentation throughout the night, probably all related to hepatic encephalopathy. He is currently on lactulose. We will add rifaximin to this. 7. Acute renal failure, acute oliguric kidney injury. So far, the urine sodium was less than 10, which will be suggestive of intravascular depletion. He is currently getting IV fluids however, superimposed ATN is also a possibility so we have consulted Nephrology. 8. Poor prognosis. Mr. Nath has decompensated advanced cirrhosis of the liver, which is complicated with ascites, portal hypertension, coagulopathy, hepatic encephalopathy, and now with multiorgan failure (respiratory failure, liver failure and hypotension which makes his prognosis is remarkably poor). Will be pending further recommendations from the subspecialties involved with his care, but I think his overall prognosis is remarkably poor, and I am waiting to discuss this with the family members. TIME SPENT: Critical time spent is 45 minutes. cc: Hero López MD MTDD
[2018-10-03] MEDS: PROAMATINE PO SCH ×3 (10:08→17:04)
[2018-10-03] MEDS ORDERED: PITRESSIN 40 UNIT in NS 100 ML IV SCH (10:45)
[2018-10-03] MEDS: LACTULOSE PO SCH ×4 (11:51→20:11)
[2018-10-03] MEDS: ALBUMIN 25% IV SCH ×2 (11:51→17:05)
[2018-10-03 12:14] LABS: BASO# 0.04 X1000 (0.0-0.2); BASO% 0.2 % (0.0-0.8); EOS# 0.03 X1000 (0.0-0.7); EOS% 0.2 % (0.0-10.0); HEMATOCRIT 28.8 % (42.0-52.0); HEMOGLOBIN 9.4 g/dL (14.0-18.0); IMM GRAN% 1.2 % (0.0-0.5); LYMPH# 2.15 X1000 (1.2-3.4); LYMPH% 12.7 % (20.5-51.1); MCH 33.7 PG (27-31); MCHC 32.6 g/dL (33-37); MCV 103.2 FL (81-99); MONO# 1.77 X1000 (0.11-0.59); MONO% 10.4 % (1.7-9.3); MPV 9.6 FL (7.4-10.4); NEUT# 12.76 X1000 (1.4-6.5); NEUT% 75.3 % (42.2-75.2); PLT 204 X1000 (130-400); RBC 2.79 XMIL (4.7-6.1); RDW 24.6 % (11.5-14.5); WBC 16.95 X1000 (4.8-10.8)
[2018-10-03 12:21] LABS: ALB/GLOB RATIO 1.1; ALBUMIN 2.9 g/dL (3.5-5.0); POTASSIUM 3.8 mmol/L (3.5-5.1); TOTAL BILIRUBIN 9.31 mg/dL (0.20-1.00); TOTAL PROTEIN 5.5 g/dL (6.3-8.3)
[2018-10-03 12:30] LABS: BANDS 34 % (0-1); LYMPHS 12 % (21-51); MONO 3 % (1-9); SEGS 45 % (42-75)
--- NOTE | 2018-10-03 14:48 | PROGRESS NOTE ---
DATE: 10/03/2018 ADDENDUM TO PROGRESS NOTE: I have met with the father, the mother, brother, and an ex- this afternoon. Mr. Nath's condition continues to be remarkably critical with extremely poor prognosis. I have explained in detail the current medical status and the fact that Mr. 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 All of the family members did make Mr. Nath's wish clear that he has stated clearly that everything needed to be done so for now Mr. Nath is full code. I have also spoken with Dr. Bennett who is the GI on board and he is making calls to [facility] to see if there is any further recommendations. cc: Hero López MD
[2018-10-03] MEDS ORDERED: VITAMIN K 10 MG in NS 50 ML IV ONE (15:59)
--- NOTE | 2018-10-03 17:44 | NEPHROLOGY CONSULTATION ---
DATE: 10/03/2018 REASON FOR CONSULTATION: Acute kidney injury. HISTORY OF PRESENT ILLNESS: Mr. Nath is a 53-year-old white male with alcoholic cirrhosis as well as hypothyroidism, depression, reflux etc. He has recurrent ascites as well as encephalopathy and coagulopathy. He requires large volume paracenteses. Most recently in August he had 6.7 L of ascites. Ongoing abdominal discomfort and altered sensorium. Ultimately came to the hospital on the where he had an initial evaluation with blood pressure 107/65, heart rate 99, respirations of 20. He was admitted to the hospital with clinical diagnoses of cirrhosis with ascites, effusion, coagulopathy, hypokalemia. He deteriorated progressively during his hospitalization such that he had lactic acidosis and ultimately required intubation. He underwent CT of the abdomen and pelvis on the using IV contrast. No findings related to his kidneys. CT of the chest performed on the did not have IV contrast and demonstrated a large left pleural effusion. His kidney function was normal on presentation but creatinine began to rise on the . This occurred during a time when he had marked hypotension with blood pressure frequently in the 70s and requiring 2 different vasoactive agents. Currently he is unresponsive on the ventilator. PAST MEDICAL HISTORY: As above. FAMILY HISTORY, SOCIAL HISTORY, REVIEW OF SYSTEMS: Not obtainable otherwise, other than what is listed in the chart. No alcohol in several months. HOME MEDICATIONS: Include folate, lactulose, levothyroxine, Protonix, Flomax, thiamin. ALLERGIES: None. PHYSICAL EXAMINATION: Vital Signs: Blood pressure 92/55, heart rate 123, respirations 21. T-max 100.5 degrees. General: Obtunded, chronically ill-appearing man on the ventilator unresponsive. Skin is jaundiced and dry with multiple spiders. Conjunctivae are icteric. Pupils are somewhat dilated. Oropharynx is dry. Neck: Neck veins are distended. Heart: Regular and tachycardic with a gallop. Lungs: Have equal breath sounds. Rhonchi diffusely. Abdomen: Distended, soft. Bowel sounds are minimal. No organomegaly. Extremities: Have 1+ edema. No clubbing or cyanosis. IMPRESSION: Acute kidney injury secondary to ischemic acute tubular necrosis from sepsis, hypotension etc. He does not meet criteria for dialysis at this time. His mortality is very high and is very unlikely to tolerate dialysis in his current state. I have reviewed his medications and no changes are required though I would consider stopping his lactulose and midodrine given low GI motility currently. Overall high risk of mortality. cc: Janusz Sainz MD
[2018-10-03] MEDS: XIFAXAN FT SCH (20:11)
[2018-10-03 20:27] LABS: INR 3.06; PROTIME 33.8 Seconds (11.0-16.0)
[2018-10-03 20:33] LABS: BASO# 0.04 X1000 (0.0-0.2); BASO% 0.2 % (0.0-0.8); EOS# 0.03 X1000 (0.0-0.7); EOS% 0.2 % (0.0-10.0); HEMATOCRIT 26.2 % (42.0-52.0); HEMOGLOBIN 8.3 g/dL (14.0-18.0); IMM GRAN# 0.13 X1000 (0.0-0.04); IMM GRAN% 0.8 % (0.0-0.5); LYMPH# 2.14 X1000 (1.2-3.4); LYMPH% 13.2 % (20.5-51.1); MCH 32.9 PG (27-31); MCHC 31.7 g/dL (33-37); MONO# 2.19 X1000 (0.11-0.59); MONO% 13.5 % (1.7-9.3); MPV 9.8 FL (7.4-10.4); NEUT# 11.68 X1000 (1.4-6.5); NEUT% 72.1 % (42.2-75.2); PLT 167 X1000 (130-400); RBC 2.52 XMIL (4.7-6.1); RDW 24.4 % (11.5-14.5); WBC 16.21 X1000 (4.8-10.8)
[2018-10-03 20:38] LABS: ALB/GLOB RATIO 1.5; ALBUMIN 3.5 g/dL (3.5-5.0); CALCIUM 8.1 mg/dL (8.8-10.2); CREATININE 3.3 mg/dL (0.7-1.2); POTASSIUM 3.8 mmol/L (3.5-5.1); TOTAL BILIRUBIN 9.02 mg/dL (0.20-1.00); TOTAL PROTEIN 5.8 g/dL (6.3-8.3)
--- NOTE | 2018-10-03 22:04 | PULMONOLOGY PROGRESS NOTE ---
DATE: 10/03/2018 SUBJECTIVE: Interim events noted. The patient had emesis yesterday evening with increased work of breathing and evidence of lactic acidosis on arterial blood gas. The patient has been intubated and initiated on mechanical ventilation. His basal pressure requirements have increased and he is now on 2 vasopressors. He is unresponsive. OBJECTIVE: Heart rate 120, respiratory rate 15, blood pressure 86/56, oxygen saturation 97%.HEENT: Pupils are equal but sluggish. Sclera are icteric. Oropharynx has some residual dry blood present. Neck: Is supple. Chest: Has coarse rhonchi bilaterally. Cardiac exam: Increased rate, regular rhythm. Abdomen: Soft, no bowel sounds. Extremities: Cool and clammy to the touch. LABORATORIES: Sodium 131, potassium 3.8, chloride 91, bicarbonate 17, anion gap 23, BUN 28, creatinine 3.0, lactate 9.5, bilirubin 9.3. INR yesterday afternoon 4.12. White blood count 16.9, hemoglobin 9.4, platelet count 204,000. Arterial blood gas reveals a pH 7.50, pCO2 of 22, PO2 of 174, lactate of 9.7. Chest x-ray reveals endotracheal tube in good position with small left-sided pleural effusion. IMPRESSION: A 53-year-old with 1. Acute hypoxemic respiratory failure. 2. Acute on chronic liver failure. 3. Acute renal failure. 4. Acute gastrointestinal blood loss. 5. Aspiration pneumonia. 6. Ongoing tobacco use. 7. Intractable shock with increasing lactic acidosis. RECOMMENDATIONS: 1. Continue full ventilatory support. 2. Agree with broad spectrum antibiotics. 3. Continue vasopressors. 4. Continue to follow hemoglobin for possible transfusion requirements. 5. Agree with end of life discussions as have been held by Dr. López. The patient has severe liver disease, recurrent ascites, and now with multiorgan dysfunction syndrome. He has high probability of dying during this hospitalization. Although discussions are being held with [facility], he currently is not a surgical candidate for aggressive interventions such as a liver transplant. TIME SPENT: In critical care management 30+ minutes. cc: Koby Holloway MD
[2018-10-04] MEDS: ALBUMIN 25% IV SCH ×5 (00:29→22:28)
--- NOTE | 2018-10-04 01:08 | PROVIDER PROGRESS NOTE ---
Progress Note DATE OF PROGRESS NOTE: 10/03/2018 SUBJECTIVE: Yesterday, patient noted to have hypoxia to 80s, abdominal pain, and acute respiratory distress prompting transfer to ICU. Patient was noted to have worsening lethargy and AMS. NGT was placed c/b aspiration and hypotension requiring emergent intubation and initiation of pressors. He is now unresponsive and off all sedation. Family at bedside. OBJECTIVE: Last Vital Signs Temp 98.7 F 10/03/18 20:09 Pulse 120 H 10/03/18 22:02 Resp 14 10/03/18 22:02 BP 116/72 10/03/18 22:02 Pulse Ox 99 10/03/18 22:02 Height 5 ft 9 in Weight 176 lb 11.2 oz GEN: intubated, obtunded, nonresponsive HEENT: scleral icterus present, dilated pupils 5mm, extra ocular reflex intact, NGT in place with coffee ground material in tubing NECK: supple, no jvd PULM: vented BS anteriorly CV: tachycardic, regular, no murmurs ABD: distended, hypoactive BS, +ascites increased EXT: no cce SKIN: jaundiced NEURO: nonresponsive, no withdrawal to noxious stimuli LABS: 10/03/18 10/03/18 10/03/18 19:52 19:52 19:52 WBC 16.21 H Hgb 8.3 L Plt Count 167 INR 3.06 Sodium 133 L Potassium 3.8 Chloride 93 L Carbon Dioxide 20 L BUN 32 H Creatinine 3.3 H Total Bilirubin 9.02 H AST 87 H ALT 22 Alkaline Phosphatase 62 Ammonia 151 H Total Protein 5.8 L Albumin 3.5 lactate 9 ASSESSMENT/PLAN: Mr. Kenroy Nath is a 53 -year-old gentleman with history of Nik-en-Y gastric bypass complicated by bleeding marginal ulcers, decompensated alcoholic cirrhosis with ascites, jaundice, hepatic encephalopathy who was admitted for with worsening ascites s/p LVP on 09/30. His course is complicated by hypoxic respiratory failure, septic shock on pressors, anuric ISABELLA, UGIB, worsening decompensated cirrhosis, and AMS. He is on broad spectrum antibiotics. Etiology includes peritonitis, aspiration PNA. Blood cultures pending # Septic shock: continue antibiotics as above, on stress dose steroids; midodrine; switched IVFs to albumin IV 25gm QID, maintain MAPs >=60, consider central line placement # AMS: recommend lactulose 45mL q2H, switched to 30mL every 4 hours, start rifaxmin 550mg BID, holding sedation, treat underlying sepsis and correct metabolic derangements # Anuric ISABELLA: suspect 2/2 to ATN; nephrology consulted and following; appreciate recs # UGIB: continue PPI IV BID, trend H/H q8h, will give 2 units FFP and vitamin K 10mg IV # Decompensated ETOH cirrhosis: MELD-Na 39 today - Cirrhosis: trend LFTs, INR daily - Ascites: holding diuretics; I/O; - EV no varices on recent EGD; UGIB likely from NGT trauma vs known marginal ulcers; continue PPI IV BID - HCC screening: no evidence of HCC on U/S - PSE: controlled; continue lactulose and rifaximin as above - OLT: spoke with GI, Dr. 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 Will follow with you. Please call with questions
[2018-10-04] MEDS: LACTULOSE PO SCH ×6 (02:06→22:28)
[2018-10-04] MEDS: MAXIPIME 2 GM in NS 100 ML IV SCH ×2 (04:17→15:59)
[2018-10-04 04:36] LABS: ALLEN TEST YES; BE -3.8 mmoll (-3.0-3.0); BLOOD TYPE ARTERIAL; METHB 0.6 % (0.0-1.5); O2(CT) 10.6 mL/dL (15.0-23.0); O2HB 94.9 % (95.0-99.0); PCO2(98.6) 31 mmHg (35-45); PO2(98.6) 71 mmHg (60-100); SAMPLE BLOOD; SAO2 97.7 % (95.0-100.0); SRATE 14 BPM; THB 7.9 g/dL (11.5-17.4); TVOL 14 mL; pH(98.6) 7.42 (7.35-7.45)
[2018-10-04 04:38] LABS: MODALITY VENTILATOR
[2018-10-04] MEDS: LEVOPHED 8 MG in D5 1/2 NS 250 ML IV SCH ×5 (04:49→23:33)
[2018-10-04 04:58] LABS: ALB/GLOB RATIO 1.6; ALBUMIN 3.6 g/dL (3.5-5.0); CALCIUM 8.4 mg/dL (8.8-10.2); CREATININE 3.4 mg/dL (0.7-1.2); POTASSIUM 3.7 mmol/L (3.5-5.1); TOTAL BILIRUBIN 8.13 mg/dL (0.20-1.00); TOTAL PROTEIN 5.8 g/dL (6.3-8.3)
[2018-10-04 05:12] LABS: BASO# 0.02 X1000 (0.0-0.2); BASO% 0.1 % (0.0-0.8); EOS# 0.02 X1000 (0.0-0.7); EOS% 0.1 % (0.0-10.0); HEMATOCRIT 22.8 % (42.0-52.0); HEMOGLOBIN 7.7 g/dL (14.0-18.0); IMM GRAN# 0.13 X1000 (0.0-0.04); IMM GRAN% 0.9 % (0.0-0.5); LYMPH% 13.7 % (20.5-51.1); MCH 34.8 PG (27-31); MCHC 33.8 g/dL (33-37); MCV 103.2 FL (81-99); MONO# 1.85 X1000 (0.11-0.59); MONO% 12.7 % (1.7-9.3); MPV 10.2 FL (7.4-10.4); NEUT# 10.54 X1000 (1.4-6.5); NEUT% 72.5 % (42.2-75.2); PLT 149 X1000 (130-400); RBC 2.21 XMIL (4.7-6.1); RDW 24.4 % (11.5-14.5); WBC 14.56 X1000 (4.8-10.8)
[2018-10-04] MEDS ORDERED: NS 250 ML ONE (06:06)
[2018-10-04 06:11] LABS: LYMPHS 16 % (21-51); MONO 13 % (1-9); SEGS 71 % (42-75)
[2018-10-04] MEDS: SODIUM CHLORIDE 0.9% INJ PRN (06:18)
[2018-10-04] MEDS: SYNTHROID IV SCH (06:18)
[2018-10-04] MEDS: SOLU-CORTEF IV SCH ×2 (06:18→18:21)
[2018-10-04] MEDS: SODIUM CHLORIDE 0.9% INJ SCH ×2 (06:18→18:22)
[2018-10-04] MEDS: PROTONIX IV SCH ×2 (06:19→18:22)
[2018-10-04 06:54] LABS: INR 2.78; PROTIME 31.3 Seconds (11.0-16.0)
--- NOTE | 2018-10-04 07:13 | Diag Imaging Result Doc PS360 ---
EXAM: CHEST-PORTABLE HISTORY: Vent TECHNIQUE: Portable chest single view COMPARISON: 10/03/2018 FINDINGS: Poor inspiratory effort. No change in the endotracheal or nasogastric tubes. There are infiltrates in the mid and lower left lung with small left effusion. No cardiomegaly. The right hemidiaphragm is elevated. IMPRESSION: Stable chest Electronically signed by Kole Yoo 10/04/2018 7:11 AM
[2018-10-04] MEDS: XIFAXAN FT SCH ×2 (08:04→22:28)
[2018-10-04] MEDS: ZYVOX 600 MG/D5W 600 MG/300 ML IVPB IV SCH ×2 (08:04→19:51)
[2018-10-04] MEDS: ATIVAN IV PRN ×4 (11:39→23:46)
[2018-10-04] MEDS: KEPPRA 500 MG in NS 100 ML IV SCH ×2 (11:59→23:43)
[2018-10-04] MEDS: MORPHINE IV PRN (13:13)
--- NOTE | 2018-10-04 13:26 | PROGRESS NOTE ---
DATE: 10/04/2018 SUBJECTIVE: This morning Mr. Nath continues to be critically sick in the ICU and intubated. Ex- was at the bedside at the time of the encounter. OBJECTIVE: Current vitals: Blood pressure is 105/58, pulse of 123, respirations 21 and temperature 97.9 degrees. General exam: Mr. Nath is a 53-year-old male. He is in bed, intubated. HEENT: Mucosa is pink. Anicteric. Chest: Air entry is bilaterally reduced. There are some transmitted sounds from the ventilator. Cardiovascular: Tachycardic, but no murmurs, no rubs. Abdomen: Soft. It is distended. Bowel sounds hypoactive. Extremities: No pedal edema. [employer]: The patient is unresponsive, comatose. Pupils are round and extremely sluggishly reactive. The patient does not have any gag reflex, and will not move extremities to even extreme painful stimulation. There is some twitching of the left upper extremity and the eyes. There is also perioral twitching, which all is consistent with myoclonic jerks. LABORATORY DATA: WBC is 14.56, hemoglobin is 7.7, platelet count 149. There are no bands today. INR is down to 2.78. Lactate is 6.50. Sodium is 131, potassium is 3.9, chloride is 91, bicarbonate is 19, creatinine is up to 3.4. So far blood cultures have been 48 hours negative. IMAGING STUDIES: Stable infiltrates in the mid and lower left lung with small left pleural effusion. Right hemidiaphragm is elevated. No changes. CURRENT MEDICATIONS: 1. Cefepime 2 g every 12 hours. 2. Hydrocortisone. 3. Levothyroxine. 4. Zyvox. 5. Ativan p.r.n. 6. Norepinephrine drip. 7. Pantoprazole 40 mg q. 12 hours. ASSESSMENT: 1. Septic shock with persistent hypotension. Patient is currently only on Levophed. Blood cultures have been negative. The patient is on broad-spectrum intravenous antibiotics. 2. Advanced decompensated alcohol cirrhosis, complicated with ascites, portal hypertension, coagulopathy, and hepatic encephalopathy. Poor prognosis 3. Acute hypoxemic respiratory failure. The patient is currently intubated. Pulmonary Medicine is on board. 4. Massive ascites status post large volume paracenteses. Fluid analysis was negative for spontaneous bacterial peritonitis. The patient seems to have reaccumulated fluid back. Gastroenterology is on board. 5. Left hepatic hydrothorax noted. 6. Altered mental status which seems to be progressively getting worse. Appears to have myoclonus jerks vs seizures. We think this is a combination of severe hepatic encephalopathy, renal- induced encephalopathy and possible hypoxemic ischemic brain injury. We will get Neurology to evaluate the patient on Saturday. There is an electroencephalogram which is ordered, and we will potentially get a CT scan when patient is more stable. The patient is getting for now lactulose and rifaximin. 7. Acute oliguric kidney injury. The patient had a total of 400 mL of urine yesterday, was evaluated by Nephrology. We think there is a combination of acute tubular necrosis and possibly superimposed hepatorenal syndrome. 8. Multi organ failure with extremely poor prognosis. Family have been notified. cc: Hero López MD I reviewed patient this afternoon. Mother, father and ex at bedside. Patient is clearly have seizures. He remains comatose and unresponsive. Prognosis is extremely poor. Family made aware. Family have decided to make patient DNR level one. They are considering comfort care but want other family members ( a brother and a sister) to come and se him before anything else is done. Will continue with Ativan prn and and give Fosphenytoin 300mg x1 dose. MTDD
[2018-10-04] MEDS ORDERED: ATIVAN IV ONE (14:20)
[2018-10-04] MEDS ORDERED: CEREBYX IV ONE (14:21)
[2018-10-04] MEDS ORDERED: CEREBYX 300 MG in NS 50 ML IV ONE (14:30)
--- NOTE | 2018-10-04 17:25 | PULMONOLOGY PROGRESS NOTE ---
DATE: 10/04/2018 SUBJECTIVE: The patient's eyes are open. He does not follow commands. He remains on Levophed and vasopressin. He continues to have liquid bowel movements which are brown- red and bright red. OBJECTIVE: Vital Signs: Blood pressure 105/58, heart rate 123, respiratory rate 21, oxygen saturation 95% on mechanical ventilation. HEENT: Pupils are equal and slow to react to light. Sclerae are icteric. Oropharynx appears clear with some desquamation noted. Neck: Supple. Chest: Reveals coarse rhonchi bilaterally. Cardiac: Increased rate, regular rhythm. Abdomen: Soft. No bowel sounds are present. Extremities: Reveal generalized edema and bruising. LABORATORIES: Arterial blood gas reveals a pH of 7.42, pCO2 of 31, PO2 of 71 with a lactate of 6.5 on current ventilator settings. White blood count 14.6, hemoglobin 7.7, platelet count 149,000. Sputum culture is pending. Chest x-ray reveals infiltrates predominantly on the left side with a small effusion, with a right elevated hemidiaphragm. IMPRESSION: A 53-year-old with: 1. Acute hypoxemic respiratory failure. 2. Acute on chronic liver failure. 3. Acute on chronic renal failure. 4. Ongoing gastrointestinal blood loss. 5. Aspiration pneumonia. 6. Intractable shock with persistent lactic acidosis. 7. Ongoing tobacco use. RECOMMENDATIONS: 1. Continue ventilatory support. 2. Await sputum cultures to see if an antibiotic change is indicated. 3. Continue vasopressors. 4. Gastrointestinal bleeding management per GI service. 5. Prognosis appears poor. His ex- is at the bedside and Dr. López is having ongoing discussions with her of the seriousness of his illness. Critical Care Time: 30+ minutes cc: Koby Holloway MD [facility]
--- NOTE | 2018-10-04 19:59 | NEPHROLOGY PROGRESS NOTE ---
DATE: 10/04/2018 SUBJECTIVE: Unresponsive on the ventilator. No clear corneal reflex. No gag with endotracheal tube manipulation. No blink to confrontation. Pupils are perhaps reactive, but very sluggish. He has periodic rhythmic perioral contraction, which extends to the left face and into the extremities, most on the left. OBJECTIVE: Vital Signs: Blood pressure 120/62, heart rate 130, respirations 20, temperature 99.4. Intake 4.6 L. Output 900 mL, but only 120 mL of urine output. Neck: Neck veins are not appreciated. Cardiovascular: Heart is regular and tachycardic. Lungs: Are equal, few scattered crackles. Abdomen: Distended, soft, diminished bowel sounds. Extremities: Have 1+ edema. Skin: Jaundice is present. IMPRESSION: 1. Acute kidney injury. Oliguric. 2. Hyponatremia, metabolic acidosis (lactic acid). 3. Oliguria. He has no overt indications for hemodialysis today and dialysis is very unlikely to impact his outcome significantly. As such, I would recommend against it. I will discuss this with his mother at the earliest opportunity. cc: Janusz Sainz MD
--- NOTE | 2018-10-04 20:39 | PROVIDER PROGRESS NOTE ---
Progress Note SUBJECTIVE: Patient noted to have scant BRBPR. No large bloody bowel movements. Afebrile. He has been weaned of Vasopressin and on 40% FiO2. He remains unresponsive and has now developed myoclonic jerks of the face and UEs. OBJECTIVE: Last Vital Signs Temp 99.5 F 10/04/18 20:00 Pulse 123 H 10/04/18 20:17 Resp 18 10/04/18 20:17 BP 120/71 10/04/18 20:17 Pulse Ox 96 10/04/18 20:17 Height 5 ft 9 in Weight 181 lb 8 oz GEN: intubated, comatose, nonresponsive HEENT: scleral icterus present, dilated pupils 5mm, sluggish, NGT in place, prior coffee grounds resolved NECK: supple, no jvd PULM: coarse BS bilaterally CV: tachycardic, regular, no murmurs ABD: distended, tympanic, hypoactive BS, +ascites EXT: no cce SKIN: jaundiced NEURO: myoclonic jerks, nonresponsive, no cough reflex, no withdrawal to noxious stimuli, no clonus LABS: 10/04/18 10/04/18 10/04/18 04:20 04:20 04:20 WBC 14.56 H Hgb 7.7 L Plt Count 149 INR pH pCO2 pO2 Lactate Sodium 131 L Potassium 3.7 Chloride 91 L Carbon Dioxide 19 L BUN 37 H Creatinine 3.4 H Glucose 106 H Total Bilirubin 8.13 H AST 82 H ALT 21 Alkaline Phosphatase 57 Ammonia 195 H Total Protein 5.8 L Albumin 3.6 10/04/18 10/04/18 04:26 06:35 WBC Hgb Plt Count INR 2.78 pH 7.42 pCO2 31 L pO2 71 Lactate 6.50 H* Sodium Potassium Chloride Carbon Dioxide BUN Creatinine Glucose Total Bilirubin AST ALT Alkaline Phosphatase Ammonia Total Protein Albumin ASSESSMENT/PLAN: Mr. Kenroy Nath is a 53 -year-old gentleman with history of Nik-en-Y gastric bypass complicated by bleeding marginal ulcers, decompensated alcoholic cirrhosis with ascites, jaundice, hepatic encephalopathy who was admitted for with worsening ascites s/p LVP on 09/30. His course is complicated by hypoxic res piratory failure, septic shock on pressors, anuric ISABELLA, UGIB, worsening decompensated cirrhosis, and coma. He is on broad spectrum antibiotics. Etiology includes peritonitis, aspiration PNA. His labs and hemodynamics have slightly improved, but mental status unchanged or worsened. # Septic shock: continue antibiotics as above, on stress dose steroids, pressors, midodrine; albumin IV 25gm QID, maintain MAPs >=60 # AMS: multifactorial; concerned for anoxic brain injury, CVA vs PSE, metabolic encephalopathy; continue lactulose, rifaxmin; on Keppra; neurology consultation pending # Oligouric ISABELLA: suspect 2/2 to ATN; no indication for HD at this time; nephrology consulted and following; appreciate recs # UGIB: continue PPI IV BID, trend H/H q8h; INR 2.78; will given another dose of vitamin K today # Decompensated ETOH cirrhosis: MELD-Na 39 today - Cirrhosis: trend LFTs, INR daily - Ascites: holding diuretics; I/O; - EV no varices on recent EGD; UGIB likely from NGT trauma vs known marginal ulcers; continue PPI IV BID - HCC screening: no evidence of HCC on U/S - PSE: continue lactulose and rifaximin as above - OLT: not a candidate for OLT evaluation at this time; prognosis poor, pallia tive care following; family wants time-limited trial # Marginal ulcers: continue PPI BID # 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 Will follow with you. Please call with questions
[2018-10-05] MEDS: LACTULOSE PO SCH ×6 (02:40→23:15)
[2018-10-05] MEDS: LEVOPHED 8 MG in D5 1/2 NS 250 ML IV SCH ×3 (04:03→15:04)
[2018-10-05 04:17] LABS: ALLEN TEST YES; BE -4.3 mmoll (-3.0-3.0); BLOOD TYPE ARTERIAL; HCO3-(ACT) 21.6 mmoll (20.0-26.0); METHB 1.1 % (0.0-1.5); O2(CT) 8.7 mL/dL (15.0-23.0); O2HB 96.8 % (95.0-99.0); PCO2(98.6) 26 mmHg (35-45); PO2(98.6) 78 mmHg (60-100); SAMPLE BLOOD; SAO2 99.8 % (95.0-100.0); SRATE 14 BPM; THB 6.3 g/dL (11.5-17.4); TVOL 600 mL; pH(98.6) 7.47 (7.35-7.45)
[2018-10-05 04:19] LABS: BASO# 0.05 X1000 (0.0-0.2); BASO% 0.3 % (0.0-0.8); HEMATOCRIT 24.7 % (42.0-52.0); HEMOGLOBIN 8.1 g/dL (14.0-18.0); IMM GRAN# 0.09 X1000 (0.0-0.04); IMM GRAN% 0.5 % (0.0-0.5); LYMPH# 1.88 X1000 (1.2-3.4); LYMPH% 11.3 % (20.5-51.1); MCH 32.3 PG (27-31); MCHC 32.8 g/dL (33-37); MCV 98.4 FL (81-99); MONO# 2.09 X1000 (0.11-0.59); MONO% 12.6 % (1.7-9.3); NEUT# 12.53 X1000 (1.4-6.5); NEUT% 75.3 % (42.2-75.2); PLT 128 X1000 (130-400); RBC 2.51 XMIL (4.7-6.1); RDW 25.7 % (11.5-14.5); WBC 16.64 X1000 (4.8-10.8)
[2018-10-05] MEDS: MAXIPIME 2 GM in NS 100 ML IV SCH ×2 (04:22→15:05)
[2018-10-05] MEDS: ALBUMIN 25% IV SCH ×4 (04:22→23:15)
[2018-10-05 04:25] LABS: INR 2.41
[2018-10-05 04:29] LABS: MODALITY VENTILATOR
[2018-10-05 04:37] LABS: ALB/GLOB RATIO 1.5; CALCIUM 8.7 mg/dL (8.8-10.2); CREATININE 3.6 mg/dL (0.7-1.2); POTASSIUM 3.6 mmol/L (3.5-5.1); TOTAL BILIRUBIN 7.87 mg/dL (0.20-1.00); TOTAL PROTEIN 6.6 g/dL (6.3-8.3)
[2018-10-05] MEDS: ATIVAN IV PRN ×2 (05:48→10:10)
[2018-10-05] MEDS: MORPHINE IV PRN ×2 (05:48→10:10)
[2018-10-05] MEDS: SYNTHROID IV SCH (06:19)
[2018-10-05] MEDS: SODIUM CHLORIDE 0.9% INJ PRN (06:19)
[2018-10-05] MEDS: SODIUM CHLORIDE 0.9% INJ SCH (06:19)
[2018-10-05] MEDS: SOLU-CORTEF IV SCH ×2 (06:19→18:05)
[2018-10-05] MEDS: PROTONIX IV SCH ×2 (06:19→20:39)
[2018-10-05] MEDS: XIFAXAN FT SCH ×2 (08:25→20:40)
[2018-10-05] MEDS: ZYVOX 600 MG/D5W 600 MG/300 ML IVPB IV SCH ×2 (08:25→20:39)
--- NOTE | 2018-10-05 08:26 | Diag Imaging Result Doc PS360 ---
EXAM: CHEST-PORTABLE - 10/05/2018 HISTORY: Vent TECHNIQUE: Portable chest COMPARISON: 10/04/2018 FINDINGS: Endotracheal tube and nasogastric tube remain in place. Infiltrate on the left appears stable to mildly decreased. There is an apparent small left pleural effusion similar to prior. There is mild subsegmental atelectasis at the right base. There is no pneumothorax identified. Heart size is stable. IMPRESSION: Stable to mildly decreased infiltrate on the left. Electronically signed by Rob Monroy 10/05/2018 8:23 AM
[2018-10-05] MEDS: KEPPRA 1,000 MG in NS 100 ML IV SCH ×2 (09:16→20:39)
--- NOTE | 2018-10-05 09:39 | PROGRESS NOTE ---
DATE: 10/05/2018 SUBJECTIVE: This morning, Mr. Nath continues to be in the ICU, intubated, continuously having some jerky generalize movements intermittently. There was no family member at the bedside at the time of the encounter. OBJECTIVE: Vital Signs: Blood pressure 127/64, pulse of 118, respirations 18, temperature 99 degrees. Patient is saturating 96% on mechanical ventilator. General: Mr. Nath is a 53-year-old gentleman. He is in bed. He is unresponsive. HEENT: Mucosa is pink and anicteric. There is a lot of crusted blood around the nostril and the mouth where we have the tubes. Neck: Supple. Chest: Air entry is bilaterally reduced. There are transmitted sounds from the ventilator. Cardiovascular: Tachycardic but no murmurs. Abdomen: Soft. Continues to be distended. There is collateral circulation on the anterior abdominal wall. Extremities: No pedal edema. Neurologic: Patient is unresponsive and comatose. Pupils are round and nonreactive. There is no gag reflex. There is no corneal reflex. The patient does not move to painful stimulation. The patient continues to have generalized jerky movements intermittently. LABORATORY DATA: WBC 16.64, hemoglobin is 8.1, platelet count of 123,000. Chemistry is also reviewed. Sodium is 131, potassium is 3.6, chloride is 90, bicarb is 17. Creatinine is up to 3.6. Urine output was 200. The patient continues to have bowel movements. CURRENT MEDICATIONS: Have all been reviewed. The patient is on 1. Albumin 25 mg IV q.6. 2. Cefepime 2 g q.12. 3. Hydrocortisone 50 mg IV q.12. 4. Keppra. 5. Zyvox. 6. Rifaximin. IMAGING STUDIES: A chest x-ray this morning shows stable, mildly decreased infiltrate on the left. ASSESSMENT: 1. Shock, presumed septic with persistent hypotension. Patient continues to be on Levophed. This is being weaned off. Blood cultures so far have been negative. The patient continues to be on broad-spectrum IV antibiotics. 2. Comatose, presumably due to severe hepatic encephalopathy with ongoing intermittent seizures, questionable status epilepticus and possible hypoxemic ischemic brain injury. At this point, Mr. Nath does not seem to have any viable cortical active functioning. No cranial nerve activity seems to be going on. He does not respond even to extreme painful stimulation. He is only sustaining her breathing which would be in the medulla. I think he has an extremely irreversible neurological catastrophe which would be incompatible with life at this point. 3. Acute oliguric kidney injury. Creatinine continues to be coming up. Nephrology is on board. 4. Advanced decompensated alcohol cirrhosis complicated with ascites, portal hypertension, coagulopathy, and severe encephalopathy, all potential very poor prognosis. 5. Acute hypoxemic respiratory failure. The patient continues to be intubated. 6. Massive ascites status post large volume paracenteses. 7. Left hepatic hydrothorax. 8. Multi organ failure with extreme poor prognosis. Family is aware. 9. Persistent intermittent jerking movement, questionable for status epilepticus. We are going to increase the Keppra to 1000 b.i.d. I have also started the patient on fosphenytoin 100 mg q.8 hours. If this does not seems to control, we will start the patient on propofol drip. 10. Persistent high anion gap metabolic acidosis secondary to lactic acidosis noted. The patient is currently DNR level 1. Yesterday, I spoke extensively with the family, they did mention that the patient's wish was to keep him about 7 days and see if there will be any improvement. It appears the family wants to keep that wish and see if the patient will be able to survive those 7 days. We will continue to address the extreme gravity of his current status and the fact that it does not appear that Mr. Nath will be able to survive this current hospitalization. cc: Hero Lópze MD MTDD
[2018-10-05] MEDS: CEREBYX IV SCH ×2 (12:09→18:06)
--- NOTE | 2018-10-05 14:14 | PULMONOLOGY PROGRESS NOTE ---
DATE: 10/05/2018 SUBJECTIVE: The patient does not respond to voice. He remains on mechanical ventilation. He remains on Levophed for blood pressure support. He continues to have liquid/maroon stools. OBJECTIVE: Maximum temperature in the last 24 hours 100.3 degrees, blood pressure 94/71, heart rate 112, respiratory rate 14, oxygen saturation 97%. HEENT: Pupils are equal and reactive. Sclerae are icteric. Oropharynx appears clear. Neck: Supple. Chest: Reveals coarse rhonchi bilaterally. Cardiac: S1-S2, increased rate. Abdomen: Mildly distended. Extremities: Cool to the touch with generalized bruising. LABORATORIES: Chest x-ray reveals endotracheal tube in good position. He has pleural effusion on the left. White blood count 16.6, hemoglobin 8.1, platelet count 128,000. INR is elevated at 2.41. Arterial blood gas reveals a pH 7.41, pCO2 of 26, PO2 of 78 with a lactate of 5.8. Sodium 131, potassium 3.6, chloride 90, bicarbonate 17, anion gap 24, BUN 47, creatinine 3.2. Arterial blood gas reveals a pH 7.47, pCO2 of 26, PO2 of 78. IMPRESSION: A 53-year-old with 1. Acute hypoxemic respiratory failure. 2. Acute on chronic liver failure. 3. Acute on chronic renal failure. 4. Ongoing gastrointestinal blood loss. 5. Pneumonia. 6. Pleural effusion, left greater than right. 7. Intractable shock with persistent lactic acidosis. 8. Ongoing tobacco use at the time of admission. PLAN: 1. Continue ventilatory support. 2. Continue current antibiotic regimen. 3. Continue vasopressors for ongoing shock. 4. Continue GI and blood loss management per the GI service. 5. Prognosis is extremely poor. End of life discussions have been held with the family. TIME SPENT: Critical care management 30+ minutes. cc: Koby Holloway MD
--- NOTE | 2018-10-05 16:49 | INFECTIOUS DISEASE CONSULT REP ---
DATE: 10/05/2018 CONCLUSION: The patient has possible pneumonia. It is unlikely he has spontaneous bacterial peritonitis in view of the fact that the ascites did not grow any organism. RECOMMENDATION: I agree with treating the patient with Zyvox and cefepime. I have decreased the dose of cefepime to 1 g IV every 12 hours. DISCUSSION: The patient is intubated. He is unable provide a history and no family members are present. He initially was admitted with abdominal pain. PAST MEDICAL HISTORY: Positive for alcoholic cirrhosis with acute decompensation. The patient also has a history of ascites for which he has had a paracentesis in August of this year. The patient also has longstanding alcohol dependence, although there are reports that he stopped drinking alcoholic beverages some months ago. The patient also has hypothyroidism, depression, gastroesophageal reflux disease, gastric ulcers and a recently infected epidermal inclusion cyst in his scrotum. PAST SURGICAL HISTORY: Positive for Nik-en-Y gastric bypass and he has also had abdominal paracentesis. SOCIAL HISTORY: The patient smokes cigarettes. The patient has a history of alcoholism, although on admission he said that he had not had alcohol in several months. There is no known history of illicit drug use. FAMILY HISTORY: Positive for heart disease requiring coronary artery stents, back problems, and liver disease. ALLERGIES: The patient has no known drug allergies. HOME MEDICATIONS: Include folic acid, lactulose, Synthroid, Thera-M Plus, Protonix, Flomax, and thiamin. LABORATORY STUDIES: Done here show a CBC with a white count of 16,640, hemoglobin 8.1, platelet count 128,000. Blood gases show a pH of 7.47, a PO2 of 78 and a pCO2 of 26. Creatinine is 3.6. GFR is 18. Ammonia level is 195. Bilirubin is 7.87. Urinalysis showed no white cells or bacteria. Sputum, blood, urine and ascitic fluid cultures are negative. Chest x-ray shows left lower lobe infiltrate. CT scan of the chest shows left pleural effusion and ascites. Abdominal ultrasound shows ascites and fatty liver. PHYSICAL EXAMINATION: Earlier temperature was 100.5 degrees, now it is 98.2, pulse 113, respirations 15, blood pressure is 103/59. The patient is 5 feet 9 inches tall, weighs 188 pounds.General: This is an ill appearing and icteric middle-aged male. He is intubated. He is obtunded. Head/eyes/ears/nose/throat: He has got scleral icterus. He has an orotracheal tube and a nasogastric tube in place. There is no drainage from the nose or ears. The eyes are icteric and also the sclerae are injected. Neck: No meningismus. Lungs: Clear to auscultation. Cardiovascular: Heart rate is regular. Abdomen: Swollen with ascites. There was no tenderness. Neurologic: The patient is obtunded. He did not respond to verbal stimuli. There is no tremor. Integument: No rash noted. Thank you for the consult. cc: Toy Tucker MD MTDD
--- NOTE | 2018-10-05 23:59 | PROVIDER PROGRESS NOTE ---
Progress Note SUBJECTIVE: No acute overnight events. Per RN, patient passing old blood in stools. OBJECTIVE: Last Vital Signs Temp 99.1 F 10/05/18 23:15 Pulse 106 H 10/05/18 23:32 Resp 16 10/05/18 23:32 BP 104/62 10/05/18 23:32 Pulse Ox 98 10/05/18 23:32 Height 5 ft 9 in Weight 188 lb 7 oz GEN: intubated, comatose, nonresponsive HEENT: scleral icterus present, dilated pupils 5mm, sluggish, NGT in place NECK: supple, no jvd PULM: coarse BS bilaterally CV: tachycardic, regular, no murmurs ABD: distended, tympanic, hypoactive BS, +ascites EXT: no cce SKIN: jaundiced, scattered ecchymoses NEURO: myoclonic jerks, nonresponsive, no cough reflex, no withdrawal to noxious stimuli, no clonus LABS: 10/04/18 10/04/18 10/04/18 04:20 04:20 04:20 WBC 14.56 H Hgb 7.7 L Plt Count 149 INR pH pCO2 pO2 Lactate Sodium 131 L Potassium 3.7 Chloride 91 L Carbon Dioxide 19 L BUN 37 H Creatinine 3.4 H Glucose 106 H Total Bilirubin 8.13 H AST 82 H ALT 21 Alkaline Phosphatase 57 Ammonia 195 H Total Protein 5.8 L Albumin 3.6 10/04/18 10/04/18 04:26 06:35 WBC Hgb Plt Count INR 2.78 pH 7.42 pCO2 31 L pO2 71 Lactate 6.50 H* Sodium Potassium Chloride Carbon Dioxide BUN Creatinine Glucose Total Bilirubin AST ALT Alkaline Phosphatase Ammonia Total Protein Albumin ASSESSMENT/PLAN: Mr. Kenroy Nath is a 53 -year-old gentleman with history of Nik-en-Y gastric bypass complicated by bleeding marginal ulcers, decompensated alcoholic cirrhosis with ascites, jaundice, hepatic encephalopathy who was admitted for with worsening ascites s/p LVP on 09/30. His course is complicated by hypoxic respiratory failure, septic shock on pressors, anuric ISABELLA, UGIB, worsening decompensated cirrhosis, and coma. He is on broad spectrum antibiotics. Etiology includes peritonitis, aspiration PNA. His labs and hemodynamics have slightly improved, but mental status unchanged or worsened. # Septic shock: continue antibiotics as above, on stress dose steroids, pressors, midodrine; albumin IV 25gm QID, maintain MAPs >=60 # AMS: multifactorial; concerned for anoxic brain injury; continue lactulose, rifaxmin; on Keppra; neurology consultation pending # Oligouric ISABELLA: suspect 2/2 to ATN; no indication for HD at this time; nephrology consulted and following; appreciate recs # UGIB: continue PPI IV BID, trend H/H q8h # Decompensated ETOH cirrhosis - Cirrhosis: trend LFTs, INR daily - Ascites: holding diuretics in setting of shock; I/O; - EV no varices on recent EGD; UGIB likely from NGT trauma vs known marginal ulcers; continue PPI IV BID - HCC screening: no evidence of HCC on U/S - PSE: continue lactulose and rifaximin as above # Marginal ulcers: continue PPI BID # 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 Continue end of life discussions. Please call with questions
[2018-10-06] MEDS: MAXIPIME 1 GM in NS 50 ML IV SCH ×2 (04:15→15:03)
[2018-10-06] MEDS: LACTULOSE PO SCH ×6 (04:15→22:42)
[2018-10-06 04:26] LABS: ALLEN TEST YES; BE -3.9 mmoll (-3.0-3.0); BLOOD TYPE ARTERIAL; HCO3-(ACT) 21.9 mmoll (20.0-26.0); METHB 0.7 % (0.0-1.5); O2(CT) 13.2 mL/dL (15.0-23.0); O2HB 97.5 % (95.0-99.0); PCO2(98.6) 25 mmHg (35-45); PO2(98.6) 109 mmHg (60-100); SAMPLE BLOOD; SAO2 100.3 % (95.0-100.0); SRATE 14 BPM; THB 9.5 g/dL (11.5-17.4); TVOL 600 mL; pH(98.6) 7.48 (7.35-7.45)
[2018-10-06 04:27] LABS: MODALITY VENTILATOR
[2018-10-06 04:33] LABS: INR 2.48; PROTIME 28.6 Seconds (11.0-16.0)
[2018-10-06 05:02] LABS: ALB/GLOB RATIO 1.7; CALCIUM 8.7 mg/dL (8.8-10.2); CREATININE 3.8 mg/dL (0.7-1.2); POTASSIUM 3.6 mmol/L (3.5-5.1); TOTAL BILIRUBIN 7.49 mg/dL (0.20-1.00); TOTAL PROTEIN 6.3 g/dL (6.3-8.3)
[2018-10-06 05:31] LABS: BASO# 0.01 X1000 (0.0-0.2); BASO% 0.1 % (0.0-0.8); HEMATOCRIT 21.3 % (42.0-52.0); HEMOGLOBIN 7.1 g/dL (14.0-18.0); IMM GRAN# 0.07 X1000 (0.0-0.04); IMM GRAN% 0.6 % (0.0-0.5); LYMPH# 1.04 X1000 (1.2-3.4); LYMPH% 9.2 % (20.5-51.1); MCH 32.7 PG (27-31); MCHC 33.3 g/dL (33-37); MCV 98.2 FL (81-99); MONO# 0.88 X1000 (0.11-0.59); MONO% 7.8 % (1.7-9.3); MPV 9.2 FL (7.4-10.4); NEUT# 9.34 X1000 (1.4-6.5); NEUT% 82.3 % (42.2-75.2); PLT 65 X1000 (130-400); RBC 2.17 XMIL (4.7-6.1); RDW 24.2 % (11.5-14.5); WBC 11.34 X1000 (4.8-10.8)
[2018-10-06] MEDS: ALBUMIN 25% IV SCH ×4 (05:50→22:43)
[2018-10-06] MEDS: PROTONIX IV SCH ×2 (06:00→19:09)
[2018-10-06] MEDS: SYNTHROID IV SCH (06:00)
[2018-10-06] MEDS: SOLU-CORTEF IV SCH ×2 (06:00→18:18)
[2018-10-06] MEDS: LEVOPHED 8 MG in D5 1/2 NS 250 ML IV SCH (06:03)
[2018-10-06] MEDS ORDERED: NS 500 ML ONE (06:27)
--- NOTE | 2018-10-06 07:30 | Diag Imaging Result Doc PS360 ---
EXAM: CHEST-PORTABLE INDICATION: Vent TECHNIQUE: One view COMPARISON: 10/05/2018 FINDINGS: Support tubes and lines are in stable positions. Left-sided infiltrate is approximately stable. There is suggestion of pulmonary venous congestion and at least mild pulmonary edema. This is stable. No new consolidation is identified. Cardiac silhouette is stable. IMPRESSION: Stable chest. Electronically signed by Shaan Duke 10/06/2018 7:28 AM
[2018-10-06] MEDS: ZYVOX 600 MG/D5W 600 MG/300 ML IVPB IV SCH ×2 (07:51→20:48)
[2018-10-06 07:54] LABS: ANISOCYTOSIS 2+; HYPOCHROM 1+; LARGE PLATELETS 1+; LYMPHS 2 % (21-51); MONO 4 % (1-9); POIKILOCYTOSIS 1+; SEGS 94 % (42-75)
[2018-10-06] MEDS ORDERED: LASIX IV ONE (08:37)
[2018-10-06] MEDS ORDERED: LASIX 200 MG in NS 25 ML IV ONE (09:00)
--- NOTE | 2018-10-06 09:04 | NEPHROLOGY PROGRESS NOTE ---
DATE: 10/06/2018 SUBJECTIVE: Mr. Nath is resting quietly in bed. He is ventilator dependent. There is no response. LABORATORY DATA: Sodium 131, potassium 3.6, chloride 90, CO2 of 16, BUN 61, creatinine 3.8, glucose 125. His anion gap is 25, calcium 8.7, albumin is 4. White count 11.34, hemoglobin 7.1, hematocrit 21.3, with a platelet count of 55,000. His ProTime is 28.6 with an INR of 2.48. ABGs show pH of 7.48, CO2 of 25, PO2 of 109, bicarbonate 21.9, with a lactate of 5.2 on 40% FiO2. PHYSICAL EXAMINATION: Most Recent Vital Signs: Temperature 98.1 degrees, blood pressure 94/51, heart rate 102, respirations are 14, he is on 40% FiO2. His last recorded saturation is 100%. He has had 1627 in, 385 out per Simon, including NG tube. He remains 11 L positive. General: This is a 53-year-old white male. He is resting quietly in bed. He is in no acute distress. There is no response. Pupils are sluggish. HEENT: Normocephalic, atraumatic. Conjunctivae icteric. He has sluggish pupils, slow to react. Neck: Supple. Trachea midline. He has positive JVD. Cardiovascular: He is tachycardic. He is without murmur or gallop. Lungs: A few scattered crackles. Remains on O2 support, ventilator dependent. Abdomen: Soft, quiet. Diminished bowel sounds. Genitourinary: Not inspected. Minimal urine out. Extremities: Have 2+ lower extremity edema. Integumentary: The patient is jaundiced. He has ecchymosis in different stages of healing to his upper and lower extremities. Neurological: As above. ASSESSMENT AND PLAN: 1. Acute kidney injury. The patient is oliguric secondary to these findings. He is 11 liters positive. We will give him 200 mg of Lasix intravenous push x1 today. Will re-evaluate his labs in the morning. 2. Electrolytes and acid-base balance. The patient is hyponatremic. He has metabolic acidosis with lactic acidosis with a widening anion gap. 3. Anemia. Hemoglobin of 7.1, not quite meeting criteria for transfusion. 4. Oliguria. Again, we will give the patient 200 mg of Lasix intravenous push today. Will re- evaluate in the morning. Dr. Sainz has spoken with the family in regards with not recommending hemodialysis due to the unlikely impact of improvement with that treatment. I would like to thank you for allowing us to follow with this patient. Dictated by DIANDRA Carcamo for Janusz Sainz MD Face to face encounter, data reviewed, discussed with Geetha Lorenz on 10/06/18. I agree with the above assessment and plan of care. cc: DIANDRA Carcamo MD [facility]
[2018-10-06] MEDS: XIFAXAN FT SCH ×2 (09:15→20:48)
[2018-10-06] MEDS: KEPPRA 1,000 MG in NS 100 ML IV SCH ×2 (09:23→20:48)
--- NOTE | 2018-10-06 09:24 | PROGRESS NOTE ---
DATE: 10/06/2018 SUBJECTIVE: This morning Mr. Nath continued to be in the ICU intubated and extremely critical. No family members at the bedside. OBJECTIVE: Vital Signs: Blood pressure is 99/62, pulse of 101, temperature 97.9 degrees. Patient is saturating 98% on mechanical ventilator. General: Mr. Nath is a 53-year-old gentleman. He is in bed, currently intubated, unresponsive, comatose. HEENT: Mucosa is pink and 2+ icteric. Neck is supple. There is no JVD. Head is normocephalic. Chest: Air entry is bilaterally reduced. There are transmitted sounds from the ventilator. There is also some crackles posteriorly. Cardiovascular: Regular rate and rhythm. No murmurs. Abdomen: Soft, extremely distended, some collateral circulation on the anterior abdominal wall. Bowel sounds are extremely hypoactive. Extremities: No pedal edema. Neurological: The patient is unresponsive and comatose. Pupils are round and nonreactive. There is no gag reflex. No corneal reflex. No response to painful stimulation. The patient continues to have intermittent jerking movement, especially on the left upper extremity. I/Os: Urine output is 200 in 24 hours. LABORATORY DATA: WBC is 11.34, hemoglobin is 7.1, platelet count 65,000. Chemistry: Creatinine continues to be going up. Patient's ABGs have also been reviewed. Lactate continues to be remarkably elevated. DIAGNOSTIC STUDIES: A chest x-ray this morning shows no new consolidation. Suggestion of pulmonary venous congestion and at least mild pulmonary edema. ASSESSMENT: 1. Shock with persistent hypotension, presumed septic. The patient continues to be on Levophed. 2. Comatose, presumably due to severe hepatic encephalopathy with ongoing intermittent seizures, questionable status epilepticus and possible hypoxemic ischemic brain injury. The patient continues to be unchanged. Neurology is pending and EEG is also pending. 3. Oliguric acute kidney injury. Creatinine continues to be going up. Nephrology is on board. The patient's intra-abdominal pressures, I understand, 23 mmHg, which will be extremely high and be consistent with intra-abdominal compartment syndrome. 4. Advanced decompensated alcohol cirrhosis complicated with cirrhosis, portal hypertension, coagulopathy and severe encephalopathy, all indicative of very poor prognosis. 5. Acute hypoxemic respiratory failure. Patient continues to be intubated. 6. Massive ascites status post large volume paracenteses. 7. Left hepatic hydrothorax. 8. Persistent intermittent jerky rhythmic movement, questionable for seizures. The patient is currently on Keppra and fosphenytoin. 9. Persistent high anion gap metabolic acidosis secondary to lactic acidosis. 10. Anemia with severe thrombocytopenia. This will be concerning for disseminated intravascular coagulation (DIC)in this critical patient with ongoing oozing around his orifices as well. 11. Ongoing gastrointestinal bleed. The patient is on proton pump inhibitor. PLAN: In general, Mr. Nath continues to be remarkably extremely sick with extremely poor prognosis. We are pending evaluation from Neurology and go from there. We are also doing the fibrinogen, D-dimer, haptoglobin and LDH to rule out potential DIC. I am awaiting the family members to update them on the current medical status. cc: Hero López MD
[2018-10-06] MEDS ORDERED: ATIVAN IV ONE (10:05)
[2018-10-06] MEDS ORDERED: CEREBYX IV ONE ×2 (10:08→11:00)
[2018-10-06] MEDS: CEREBYX IV SCH ×2 (10:21→17:44)
[2018-10-06] MEDS ORDERED: NS IV ONE (11:00)
--- NOTE | 2018-10-06 11:32 | CONSULTATION ---
DATE OF CONSULTATION: 10/06/2018 LOCATION: ICU bed 16. HISTORY OF PRESENT ILLNESS: Mr. Nath is 53 years old, and he has had clinically apparent seizure. He has a longstanding history of alcoholic cirrhosis, stopped using ethanol several months ago. He has a baseline coagulopathy. He presented with abdominal pain and shortness of breath. A few days ago, he became more hypotensive and hypoxic and required intubation. He has continued unresponsive since then. We do not have brain imaging reported this admission. EEG this morning shows prominent periodic epileptiform discharges, mostly generalized with a burst suppression background. He had some clinically apparent left shoulder twitching, which corresponded very well to the bursts of epileptiform discharges on EEG. He received lorazepam 10 mg over a few minutes, and the frequency of epileptiform discharges was slightly reduced, but did not stop. He has had 100 mg of fosphenytoin given twice prior to EEG. He has levetiracetam 1000 mg IV every 12 hours on board, and there is poor renal function, so levetiracetam levels are likely at least therapeutic or supratherapeutic. History from attentive sister is that he has never had serious head injury as an adult. He did have some head injuries in childhood. He has never had diagnosed stroke. She is not aware of any previous seizure or other neurologic event. She reports that he sometimes seemed to be a little bit slow to collect his thoughts and answer, but he never had any evidence of major cognitive impairment. LABORATORY DATA: Lab work on admission and recent lab results are reviewed. Presenting AST was 105, and that has come down a little bit. ALT has been normal. Alkaline phosphatase was 143 on presentation, and has been normal for the last several days. Serum ammonia climbed as high as 304 a few days after admission, 195 last check a few days ago. PHYSICAL EXAMINATION: On exam, Mr. Nath is supine, intubated, motionless, except for arrhythmic left shoulder rapid jerk Sometimes, there seemed to be some associated muscle contraction involving the left shoulder girdle and upper arm. I did not see any muscle contraction of the face or the left leg. There is very slight withdrawal with noxious stimulation over the great toe bilaterally. That stimulation did not change the EEG. Limb tone is reduced throughout. Plantar response is silent bilaterally. There is slight extraocular movement with passive head turning. Pupils reacted very slightly to bright light. I did not see corneal reflex bilaterally. Facial appearance is symmetric. Head is unremarkable. Neck is supple without meningismus. IMPRESSION: Persistent coma with concern for seizure. We have increased phenytoin load, and will follow blood pressure during that infusion. I do not think we need to change the levetiracetam dose at this point. Depending on his clinical course, levetiracetam dose may need to be reduced. We can check the levetiracetam level later if needed, but that report would not be back soon enough to [employer] administrator plans today. I discussed uncertain prognosis frankly with sister. If his current seizure pattern is agonal, our interventions may not make much difference. If we can stop seizure and allow him some time to show evidence of recovery, plans for medical management can be adjusted as indicated. Thank you for asking Neurology to see Mr. Nath. cc: MD LEONARDO Carrera III
--- NOTE | 2018-10-06 13:26 | GASTROENTEROLOGY PROGRESS NOTE ---
DATE: 10/06/2018 SUBJECTIVE: The patient is intubated, vented, in the ICU bed 16. He is nonresponsive. I spoke to the nursing staff at bedside. He is supposed to be seen by the neurology team today to evaluate for persistent coma. The patient has been afebrile for the last 24 hours. Last temperature spike was yesterday, on 10/05/2018, which was 100.3. The patient has had brown stool today. No bleeding reported in the NG tube also. PHYSICAL EXAMINATION: Vital Signs: Temperature of 97.9 degrees, pulse rate of 100, respiratory rate of 15, blood pressure 99/58, saturating 98% on 40% FiO2. General Appearance: Moderately built, moderately nourished, lying in bed, intubated and vented. HEENT: Positive pallor. Positive icterus. ET tube in place. NG tube in place. Neck: Supple. Abdomen: Soft, nondistended. No guarding. Extremities: No cyanosis, clubbing. Neurological: He is unresponsive and comatose. LABS: Hemoglobin and hematocrit are 7.1 and 21.3, white count 11.34, platelet count of 65,000. INR of 2.4, PT of 28.6, PTT was not checked. His fibrinogen is 162. D-dimer is 10.21. ABG is showing pH of 7.48, pCO2 of 25, PO2 of 109, lactate of 5.2 which is trending down. He is on the ventilator at 40% FiO2. Sodium 139, potassium 3.6, chloride 95, bicarb 16, anion gap 25, BUN of 61, creatinine 3.8, glucose of 125, calcium is 8.7. Total bilirubin 7.49, AST 83, ALT 21, alkaline phosphatase is 52, total protein 6.2, albumin of 4. LDH is 246. Blood culture x2 negative at 48 hours on 10/04/2018. Sputum culture showed normal emiliana, positive yeast. IMPRESSION AND PLAN: 1. Altered mental status, comatose. Neurology is on board. We will continue to treat him for hepatic encephalopathy. He is on lactulose 30 mL every 4 hours. He is also continued on Xifaxan 550 mg twice a day. 2. Septic shock. He is continued on antibiotics. He is on stress dose steroids. He is on pressors. He has received intravenous albumin 4 times daily. 3. Oliguric acute kidney injury, likely secondary to acute tubular necrosis. Nephrology is following. 4. Upper gastrointestinal bleed. Continue proton pump inhibitors intravenous twice a day. Continue to follow hemoglobin and hematocrit, and transfuse as needed. 5. Decompensated alcoholic cirrhosis. Continue to follow the liver enzymes and INR. 6. Ascites. Holding diuretics for now as the patient has acute kidney injury. 7. Hepatic encephalopathy. He is on lactulose and Xifaxan. 8. History of gastric bypass and multiple ulcers. He is on proton pump inhibitors twice a day. 9. Hepatic hydrothorax. Aware. 10. Severe protein calorie malnutrition. His tube feeds are on hold for now. 11. Jaundice secondary to decompensated liver cirrhosis. Continue to watch liver enzymes. 12. The above plans were discussed with the patient's nurse at bedside. All questions were answered. Please call us with any further questions. cc: MD Hero Kimble MD MTDMichaela
--- NOTE | 2018-10-06 14:07 | INFECTIOUS DISEASE PROGRESS NO ---
DATE: 10/06/2018 PRESENT ILLNESS: The patient appears to be in a septic condition. The only definite infection I could find in this patient is that he has pneumonia in the left lung. MEDICATIONS: The patient is on a combination of Zyvox and cefepime. The dose of cefepime has been altered because the patient's renal failure. PHYSICAL EXAMINATION: Vital signs: Temperature is 98.3 degrees, pulse 99, respirations 14, blood pressure 96/53. Generally this is an ill-appearing middle-aged male. He is getting sedation. He appears obtunded. He did not respond to verbal stimuli. Head, Eyes, Ears, Nose, and Throat: He does have scleral icterus and scleral injection as well. Orotracheal tube is in place. Neck: No meningismus. Lungs: Clear to auscultation. Cardiovascular: Heart rate is regular. Abdomen is firm and appears to be distended with ascites. Neurologic: The patient is obtunded. He is getting sedation, and he may well have also a hepatic encephalopathy. Extremities: There is no leg edema or erythema. DIAGNOSTIC STUDIES: Chest x-ray shows a left-sided pneumonia. The patient's blood and urine cultures are negative. Sputum grew normal emiliana and yeast. Creatinine is 3.8, GFR is 17. Blood gases show a pH of 7.48, a PO2 of 109, and a pCO2 of 25. CBC shows a white count of 11,340, hemoglobin 7.1, and platelet count 65,000. ASSESSMENT AND PLAN: The patient appears to be septic. He does have pneumonia. I plan to continue the patient's current antibiotics. COMORBIDITIES: 1. The patient is a cigarette smoker. 2. History of alcoholism. 3. He also has cirrhosis of the liver with ascites. cc: Toy Tucker MD
[2018-10-06] MEDS: SODIUM CHLORIDE 0.9% INJ SCH (19:09)
--- NOTE | 2018-10-06 20:14 | PULMONOLOGY PROGRESS NOTE ---
DATE: 10/06/2018 SUBJECTIVE: The patient has periodic twitching. He does not follow commands. He remains on vasopressor/Levophed. OBJECTIVE: Vital Signs: The patient has been afebrile for the last 24 hours. Blood pressure 97/55, heart rate 103, respiratory rate 14, oxygen saturation 98%. HEENT: Pupils are equal but sclerae are icteric. Oropharynx reveals a jaundiced mucosa. Neck: Supple. Chest: Reveals scattered crackles bilaterally. Cardiac: Increased rate, regular rhythm. Abdomen: Soft, but slightly more distended than 3 days ago. Extremities: Reveal increased peripheral edema with generalized bruising. LABORATORIES: Chest x-ray reveals effusion/infiltrate at the left base without change. White blood count 11.3, hemoglobin 7.1, platelet count 65,000. D-dimer is elevated at 10.2. Sodium 131, potassium 3.6, chloride 90, bicarbonate 16, anion gap is 25, lactate 5.2, pH 7.40, pCO2 of 25, PO2 of 109. Fibrinogen is slightly low at 162. Haptoglobin level is normal at 57. IMPRESSION: 1. A 53-year-old with hypoxemic respiratory failure. 2. Acute on chronic liver failure. 3. Acute on chronic renal failure. 4. Gastrointestinal bleeding. 5. Pneumonia. 6. Pleural effusion. 7. Persistent lactic acidosis. 8. Component of disseminated intravascular coagulation with low platelets, elevated D-dimer, low fibrinogen level. PLAN: 1. Continue ventilatory support. 2. Continue antibiotic regimen. 3. Seizure management per Neurology. 4. Continue to follow blood parameters for ongoing GI blood loss. 5. Prognosis is poor. Critical Care Time: 30+minutes cc: Koby Holloway MD [facility]
[2018-10-07] MEDS: CEREBYX IV SCH ×3 (02:17→16:50)
[2018-10-07] MEDS: LACTULOSE PO SCH ×6 (02:17→21:47)
[2018-10-07] MEDS: MAXIPIME 1 GM in NS 50 ML IV SCH (04:01)
[2018-10-07] MEDS: ALBUMIN 25% IV SCH ×4 (05:05→22:30)
[2018-10-07 05:42] LABS: ALLEN TEST YES; BE -6.2 mmoll (-3.0-3.0); BLOOD TYPE ARTERIAL; HCO3-(ACT) 20.1 mmoll (20.0-26.0); O2(CT) 10.3 mL/dL (15.0-23.0); O2HB 96.6 % (95.0-99.0); PCO2(98.6) 26 mmHg (35-45); PO2(98.6) 88 mmHg (60-100); SAMPLE BLOOD; SAO2 99.5 % (95.0-100.0); SRATE 14 BPM; THB 7.5 g/dL (11.5-17.4); TVOL 600 mL; pH(98.6) 7.43 (7.35-7.45)
[2018-10-07 05:43] LABS: MODALITY VENTILATOR
[2018-10-07 06:40] LABS: INR 2.3
[2018-10-07] MEDS: SOLU-CORTEF IV SCH ×2 (06:44→18:07)
[2018-10-07] MEDS: SYNTHROID IV SCH (06:44)
[2018-10-07] MEDS: PROTONIX IV SCH ×2 (06:47→18:17)
[2018-10-07 06:51] LABS: ALBUMIN 4.3 g/dL (3.5-5.0); CREATININE 4.1 mg/dL (0.7-1.2); POTASSIUM 3.5 mmol/L (3.5-5.1); TOTAL BILIRUBIN 7.34 mg/dL (0.20-1.00); TOTAL PROTEIN 6.4 g/dL (6.3-8.3)
--- NOTE | 2018-10-07 06:52 | Diag Imaging Result Doc PS360 ---
CHEST-PORTABLE - 10/07/2018 INDICATION: Vent COMPARISON: 10/06/2018 FINDINGS: Support tubes are stable and in good position. Stable severely low lung volumes. There is worsening hazy infiltrate throughout the right lung. Stable infiltrate throughout the left lung diffusely. Heart size remains grossly normal. IMPRESSION: Worsening infiltrate throughout the right lung. No complication from support tube placement. Electronically signed by Prince Cramer 10/07/2018 6:49 AM
[2018-10-07 06:53] LABS: BASO# 0.01 X1000 (0.0-0.2); BASO% 0.1 % (0.0-0.8); HEMOGLOBIN 6.5 g/dL (14.0-18.0); IMM GRAN# 0.08 X1000 (0.0-0.04); IMM GRAN% 0.6 % (0.0-0.5); LYMPH% 6.9 % (20.5-51.1); MCH 31.9 PG (27-31); MCHC 32.5 g/dL (33-37); MONO# 0.87 X1000 (0.11-0.59); MONO% 6.7 % (1.7-9.3); MPV 10.2 FL (7.4-10.4); NEUT# 11.16 X1000 (1.4-6.5); NEUT% 85.7 % (42.2-75.2); PLT 69 X1000 (130-400); RBC 2.04 XMIL (4.7-6.1); RDW 23.6 % (11.5-14.5); WBC 13.02 X1000 (4.8-10.8)
[2018-10-07] MEDS: LEVOPHED 8 MG in D5 1/2 NS 250 ML IV SCH (08:07)
[2018-10-07] MEDS: ZYVOX 600 MG/D5W 600 MG/300 ML IVPB IV SCH (08:34)
[2018-10-07] MEDS: KEPPRA 1,000 MG in NS 100 ML IV SCH ×2 (08:39→21:47)
--- NOTE | 2018-10-07 08:43 | NEPHROLOGY PROGRESS NOTE ---
DATE: 10/07/2018 TIME SEEN: 0625 hours. SUBJECTIVE: Mr. Nath remains ventilator dependent, nonreactive. No sedation on board. OBJECTIVE: Vital Signs: Last temperature 99 degrees, blood pressure 98/58, heart rate 102, respirations 17. He remains on Levophed. He is on 40% FiO2. His last recorded saturation is 96%. He has had 1932 in, 300 out to Simon and NG tube. He remains 13 L positive today. General: On physical examination, this is a 53-year-old white male. Has minimal twitching to the facial area. Does not follow commands. Remains on pressor support with ventilatory support. HEENT: Normocephalic, atraumatic. Pupils are equal. Sclera is anicteric. Oropharynx is jaundiced. Mucosa dry. Oral ET tube is in place. Neck: Supple. Positive JVD. Cardiovascular: He is regular rate and rhythm. Tachycardic on the monitor. Lungs: Scattered crackles bilateral, coarse. Abdomen: Slightly distended, tight. Extremities: Have 2+. No clubbing or cyanosis. Genitourinary: Simon catheter is in place. Integumentary: Patient has petechiae over his face and upper chest wall. This is greater than yesterday. Also, some noted to extremities x4, greater in the upper torso than the lower extremities. Neurological: As above. LABS: Sodium is 133, potassium is 3.5, chloride 92, CO2 16. BUN 73, creatinine 4.1, glucose 137. The patient has an anion gap of 25, calcium of 9, albumin 4.3. White count 13.02 hemoglobin is 6.5, hematocrit is 20, platelet count 69. The patient has ABGs with pH 7.43, CO2 of 26, PO2 88, bicarbonate 20.1 on 40% with a lactate of 6.3. Plasma lactate this morning is 5.7. His PT is 27, INR of 2.3. His phenytoin level is 18.3. ASSESSMENT AND PLAN: 1. Acute kidney injury. The patient remains oliguric. He is 13 L positive. The patient is not a candidate for hemodialysis. It is unlikely that this type of treatment would make any impact or improvement to his overall outcome. 2. Electrolytes and acid-base balance. This is acceptable. The patient is acidotic with a CO2 of 16 and a gap of 25. He continues with metabolic acidosis and lactic acidosis with a widening gap. 3. Anemia. Hemoglobin of 6.5. We will defer to the primary care team for possible transfusion. 4. Continues with gastrointestinal blood loss. This is now being followed by Dr. Topete. 5. Possible seizures with continued phenytoin treatment followed by Dr. Brennan and primary care. I would like to thank you for allowing us to follow with this patient. Dictated by DIANDRA Carcamo for Janusz Sainz MD Face to face encounter, data reviewed, discussed with Geetha Lorenz on 10/07/18. I agree with the above assessment and plan of care. cc: DIANDRA Carcamo MD [facility]
--- NOTE | 2018-10-07 08:48 | EEG REPORT ---
DATE: 10/03/2018 COMMENT: This is a digitally recorded EEG done portably in the ICU on a 53-year-old patient with persistent unresponsiveness, clinically apparent seizure involving the left shoulder, baseline alcoholic cirrhosis, question of hepatic encephalopathy, recent renal insufficiency, hypoxic respiratory failure. FINDINGS: Muscle contraction is prominent at times but does not hinder interpretation. The record is composed of burst suppression with 1-5 second periods of very low voltage by 0.5 second bursts of generalized high amplitude slowing, sometimes with associated sharp wave. The clinically recognized left shoulder jerking did correlate with the bursts of epileptiform activity. There was no variation to correlate with spontaneous drowsing or sleep. Noxious stimulation did not alter the record. He received lorazepam 10 mg IV over a few minutes during the EEG and the frequency of epileptiform discharges was reduced but not stopped. INTERPRETATION: Abnormal EEG because of burst suppression pattern with prominent generalized epileptiform discharges. CORRELATION: This is indicative of a diffuse encephalopathy and is consistent with his clinical seizures and raises possibility of status epilepticus. Anoxic brain injury is not excluded. cc: MD Hero Carrera III, MD MTDD
--- NOTE | 2018-10-07 09:48 | INFECTIOUS DISEASE PROGRESS NO ---
DATE: 10/07/2018 PRESENT ILLNESS: The patient is being treated for pneumonia. On chest x-ray this morning, the left lung pneumonia is worsening. The patient has been having hematochezia. This is secondary to GI bleeding but with loose stool that he is having, I am also concerned there could be Clostridium difficile. MEDICATIONS: Currently, the patient is receiving a combination of cefepime and Zyvox. PHYSICAL EXAMINATION: Vital Signs: Temperature is 98 degrees, pulse 58, respirations 18, blood pressure 120/43. General: This is an icteric, ill-appearing, middle-aged male. He is intubated and sedated. Head, Eyes, Ears, Nose, and Throat: He has scleral icterus. He has an orotracheal tube in place and an NG tube also is in place. Neck: No meningismus. Lungs: There was some rhonchi on the left side. There were some rales heard on the right side. Cardiovascular: Heart rate is regular. Abdomen: Soft and did not appear to be tender. Neurologic: The patient is sedated. He did not respond to verbal stimuli. There was no tremor. Integument: The patient is icteric. LAB AND X-RAY: CBC shows a white count of 13,020, hemoglobin 6.5, and platelet count 69,000. Blood gases show a pH of 7.43, a PO2 of 88, and a pCO2 of 26. Creatinine is 4.1. GFR is 15. AST is 75. As mentioned above, the patient's chest x-ray shows worsening in the left lung infiltrate. ASSESSMENT AND PLAN: The patient appears to be septic, most likely due to pneumonia. I am going to discontinue his current antibiotics, namely Zyvox and cefepime, and put the patient on a combination of meropenem and micafungin. I am also going to order stool for Clostridium difficile antigen and toxin in view of the fact that the patient did have loose stools but this was most likely due to gastrointestinal tract bleeding. COMORBIDITIES: He is a cigarette smoker. He also is an alcoholic. He has cirrhosis of the liver with ascites. cc: Toy Tucker MD
[2018-10-07] MEDS: MERREM 1 GM in NS 50 ML IV SCH ×2 (09:55→16:51)
[2018-10-07] MEDS: XIFAXAN FT SCH ×2 (09:56→21:47)
[2018-10-07] MEDS: MYCAMINE 100 MG in NS 100 ML IV SCH (10:10)
--- NOTE | 2018-10-07 11:16 | PROGRESS NOTE ---
DATE: 10/07/2018 SUBJECTIVE: This morning, Mr. Nath continues to be critically sick, intubated. No family member was at the bedside at the time of the encounter. OBJECTIVE: Vital Signs: Blood pressure is 106/56, pulse of 107, respirations are 20, temperature is 99.2 degrees. General Examination: Mr. Nath is a 53-year-old, male. He is in bed. He is currently intubated. No sedation. The patient remains unresponsive. Chest: Air entry is bilaterally reduced. There are diffuse crackles in both lung pink. Cardiovascular: Mildly tachycardic but no murmurs, no rubs, no gallops. GI: Abdomen is soft. It is distended. Bowel sounds are extremely hypoactive. Extremities: No pedal edema. COST ESTIMATOR: The patient remains unresponsive and comatose. Pupils are round and sluggishly reactive. The patient will move his toes to extreme painful stimulation in the lower extremities. No gag reflex. No corneal reflex. Musculoskeletal: Skin has a lot of petechiae all over. Laboratory Data: WBC is 13.02, hemoglobin is 6.5, platelet count of 69,000. Chemistry is also reviewed. Creatinine is up to 4.1. A chest x-ray this morning shows worsening infiltrate throughout the left lung. No complication from supportive lines. ASSESSMENT: 1. Shock with persistent hypotension, presumed septic. The patient continues to be on Levophed and on stress doses of steroids. 2. Persistent comatose, presumably as a result of severe hepatic encephalopathy, seizures, and possible hypoxemic ischemic brain injury. Electroencephalogram was done. The report seems to suggest that there was some activity of seizures. However, an anoxic brain injury could not be completely ruled out either. The patient is currently on Keppra and fosphenytoin. Neurology has been on board. He does not seem to have any more clinical jerking movements. 3. Oliguric acute kidney injury. Creatinine continues to be going up. Nephrology is on board. 4. Advanced decompensated alcohol cirrhosis complicated with portal hypertension, coagulopathy, severe hepatic encephalopathy, and ascites, and also ongoing gastrointestinal bleed. 5. Acute hypoxemic respiratory failure. Patient continues to be intubated. 6. Massive ascites, status post large volume paracentesis on presentation. 7. Left hepatic hydrothorax. 8. Clinical seizures with electroencephalogram supportive of the findings. The patient is currently on antiseizure medications. We think this is all precipitated because of the ongoing metabolic derangements. 9. Persistent high anion gap metabolic acidosis from lactic acidosis. 10. Anemia with thrombocytopenia and low fibrinogen with elevated D-dimer, all consistent with disseminated intravascular coagulation. The patient was given a unit of cryo yesterday. He is getting supportive transfusion. We will repeat his numbers for later today. 11. Ongoing gastrointestinal bleed. Hemoglobin has dropped. The patient is on a proton pump inhibitor. Gastroenterology is on board. 12. Worsening right lung pneumonia. The patient's antibiotics have been changed to meropenem and micafungin by infectious disease. We are going to be observing the patient more critically, especially in terms of seizures because of the carbapenems. PLAN: In general, I do not see any changes from the patient's clinical state yesterday. He continues to be profoundly comatose. His hemoglobin and hematocrit have dropped so he will be transfused this morning. The patient is being seen by multiple subspecialties and we do appreciate their help. Awaiting on the family members today to update them. critical time: 45 minutes cc: Hero López MD MTDMichaela
[2018-10-07] MEDS ORDERED: NS 250 ML ONE (13:42)
--- NOTE | 2018-10-07 15:26 | PROGRESS NOTE ---
DATE: 10/07/2018 LOCATION: ICU bed 16. Mr. Nath looks about the same clinically. I could not see definite lateral eye movement with brief passive head turning. Corneal reflex is minimal bilaterally. There is some pupil reaction to bright light bilaterally which may be a little bit better than yesterday. Limb tone is symmetric. I do not see definite withdrawal with noxious stimulation over the limbs. Plantar response is silent bilaterally. There may be a little bit of irregular muscle twitch around the left shoulder but that was not sustained or consistent. Otherwise, I do not see evidence of clinical seizure now. Phenytoin level was 18 after loading yesterday. Systolic blood pressure is 90 during my time at the bedside. IMPRESSION: 1. Focal motor seizure appears to be resolved. There is concern that he had a period of status epilepticus. The minimal shoulder twitch noted on exam now may or may not be evidence of seizure. I will order repeat phenytoin level. We might consider adding a second seizure medication. 2. Overall, prognosis appears to be very poor. Thanks for asking Neurology to see Mr. Nath. cc: MD LEONARDO Carrera III
[2018-10-07] MEDS: SODIUM CHLORIDE 0.9% INJ SCH ×2 (16:51→18:17)
--- NOTE | 2018-10-07 19:02 | PULMONOLOGY PROGRESS NOTE ---
DATE: 10/07/2018 SUBJECTIVE: The patient remains poorly responsive. The patient remains on vasopressors. OBJECTIVE: Vital Signs: Blood pressure 110/64, heart rate 101, respiratory rate 21, oxygen saturation 96%. Maximum temperature in the last 24 hours 100.1 degrees. HEENT: There is bilateral lower lid lag. He has icteric sclera. Oropharynx mucosa appears icteric. Oral endotracheal tube is in position. Neck: Supple. Chest: Reveals coarse breath sounds bilaterally. Cardiovascular: S1, S2. Abdomen: Soft with mild increased distention. Extremities: Reveal generalized bruising and are cool to the touch. LABORATORIES: White blood count 13.0, hemoglobin 6.5, platelet count 69,000. Sodium 133, potassium 3.5, chloride 92, bicarbonate 16, BUN 73, creatinine 4.1. Arterial blood gas reveals pH 7.43, pCO2 of 26, PO2 of 88 with a lactate of 6.3. Chest x-ray reveals effusion/infiltrate on the left with increasing effusion on the right. IMPRESSION: A 53-year-old with: 1. Acute hypoxemic respiratory failure. 2. Acute on chronic liver failure. 3. Acute renal failure. 4. Gastrointestinal bleeding with ongoing blood loss. 5. Pneumonia. 6. Bilateral pleural effusions. 7. Seizures. 8. DIC. PLAN: 1. Continue ventilatory support. 2. Current antibiotic regimen as directed by Dr. Toy Tucker. 3. Agree with transfusion to maintain hemoglobin greater than 7. 4. Continue seizure management per Neurology. 5. Prognosis is extremely poor. It does not appear that he will survive this hospital stay. Time Spent Critical Care Management: 30+ minutes cc: Koby Holloway MD MTDMichaela
--- NOTE | 2018-10-07 23:38 | PROVIDER PROGRESS NOTE ---
Progress Note SUBJECTIVE: Patient continues to have rectal bleeding. Seizure activity appears to be more controlled. Continues to be comatose. OBJECTIVE: Last Vital Signs Temp 98.2 F 10/08/18 00:02 Pulse 91 H 10/08/18 02:32 Resp 17 10/08/18 02:32 BP 97/57 10/08/18 02:32 Pulse Ox 96 10/08/18 02:32 Height 5 ft 9 in Weight 196 lb 4.8 oz EN: intubated, comatose, nonresponsive HEENT: scleral icterus present, dilated pupils, NGT in place NECK: supple, no jvd PULM: coarse BS bilaterally CV: tachycardic, regular, no murmurs ABD: distended, tympanic, hypoactive BS, +ascites EXT: no cce SKIN: jaundiced, scattered ecchymoses NEURO: myoclonic jerks improved, nonresponsive, no cough reflex, no withdrawal to noxious stimuli, no clonus LABS: 10/05/18 10/05/18 10/05/18 03:55 03:55 03:55 WBC 16.64 H Hgb 8.1 L Plt Count 128 L INR 2.41 pH pCO2 pO2 Lactate Sodium 131 L Potassium 3.6 Chloride 90 L Carbon Dioxide 17 L Anion Gap BUN 47 H Creatinine 3.6 H Glucose 131 H Total Bilirubin 7.87 H AST 93 H ALT 22 Alkaline Phosphatase 68 Total Protein 6.6 Albumin 4.0 Globulin 2.6 Plasma Lactate 10/05/18 10/05/18 10/07/18 03:55 04:07 05:20 WBC Hgb Plt Count INR pH 7.47 H pCO2 26 L pO2 78 Lactate 5.80 H* Sodium 133 L Potassium 3.5 Chloride 92 L Carbon Dioxide 16 L Anion Gap 25 BUN 73 H Creatinine 4.1 H Glucose Total Bilirubin 7.34 H AST 75 H ALT 19 Alkaline Phosphatase 58 Total Protein Albumin Globulin Plasma Lactate 5.7 H 10/07/18 10/07/18 10/07/18 05:20 05:20 05:30 WBC 13.02 H Hgb 6.5 L Plt Count 69 L INR 2.30 pH 7.43 pCO2 26 L pO2 88 Lactate 6.30 H* Sodium Potassium Chloride Carbon Dioxide Anion Gap BUN Creatinine Glucose Total Bilirubin AST ALT Alkaline Phosphatase Total Protein Albumin Globulin Plasma Lactate ASSESSMENT/PLAN: Mr. Kenroy Nath is a 53 -year-old gentleman with history of Nik-en-Y gastric bypass complicated by bleeding marginal ulcers, decompensated alcoholic cirrhosis with ascites, jaundice, hepatic encephalopathy who was admitted for with worsening ascites s/p LVP on 09/30. His course is complicated by hypoxic respiratory failure, septic shock on pressors, anuric ISABELLA, UGIB, worsening decompensated cirrhosis, coma, seizures ?status epilepticus. He is on broad spectrum antibiotics. Etiology includes peritonitis, aspiration PNA, ischemia. His LFTs are slightly improved. He has worsening anemia from GI bleeding. Not a candidate for EGD at this time given poor neurologic status and instability. # UGIB: likely secondary to known marginal ulcers; NPO; continue PPI BID, transfuse prn for hgb <7 for goal hgb 7-8 # Shock: septic; on pressors; abx per primary # Oligouric ISABELLA: 2/2 to ATN; not a candidate for HD; nephrology following; stopped albumin # Decompensated ETOH cirrhosis: LFTs stable; holding diuretics given shock; com atose; MELD-Na 37; equal 52% 3-month survival; this is with HD, infection, and neurologic recovery # Seizures: on antiepileptics per neurology # Palliative care following: prognosis poor; ongoing end-of-life discussions GI has no new recommendations. Will follow peripherally. Call with questions.
[2018-10-08] MEDS: MERREM 1 GM in NS 50 ML IV SCH ×3 (01:18→17:16)
[2018-10-08] MEDS: CEREBYX IV SCH ×3 (01:19→17:16)
[2018-10-08] MEDS: LACTULOSE PO SCH ×4 (02:19→20:07)
[2018-10-08] MEDS: LEVOPHED 8 MG in D5 1/2 NS 250 ML IV SCH (03:53)
[2018-10-08] MEDS: SYNTHROID IV SCH (06:21)
[2018-10-08] MEDS: SOLU-CORTEF IV SCH ×2 (06:22→17:17)
[2018-10-08] MEDS: PROTONIX IV SCH ×2 (06:22→17:18)
--- NOTE | 2018-10-08 06:41 | Diag Imaging Result Doc PS360 ---
CHEST-PORTABLE - 10/08/2018 INDICATION: Vent COMPARISON: 10/07/2018 FINDINGS: Support tubes are stable. Stable dense bilateral alveolar infiltrates. There may be a left pleural effusion as well. IMPRESSION: No change from prior. Electronically signed by Prince Cramer 10/08/2018 6:39 AM
[2018-10-08 07:51] LABS: ALLEN TEST YES; BE -8.7 mmoll (-3.0-3.0); BLOOD TYPE ARTERIAL; HCO3-(ACT) 18.2 mmoll (20.0-26.0); METHB 0.8 % (0.0-1.5); O2(CT) 10.7 mL/dL (15.0-23.0); O2HB 97.8 % (95.0-99.0); PCO2(98.6) 27 mmHg (35-45); PO2(98.6) 162 mmHg (60-100); SAMPLE BLOOD; SAO2 100.8 % (95.0-100.0); SRATE 14 BPM; THB 7.5 g/dL (11.5-17.4); TVOL 600 mL; pH(98.6) 7.37 (7.35-7.45)
[2018-10-08 08:13] LABS: MODALITY VENTILATOR
--- NOTE | 2018-10-08 08:20 | INFECTIOUS DISEASE PROGRESS NO ---
DATE: 10/08/2018 PRESENT ILLNESS: The patient is being treated for pneumonia. The patient's Clostridium difficile antigen was positive but the toxin was negative. However, the patient is having diarrhea and, therefore, I think the patient needs to be treated as if he has Clostridium difficile associated diarrhea. MEDICATIONS: The patient currently is on a combination of meropenem and micafungin. This is day 1 of treatment for both of these agents. I started the patient on vancomycin elixir thru the NG tube. PHYSICAL EXAMINATION: Vital Signs: Temperature is 98.8 degrees, pulse 100, respirations 18, blood pressure 101/58. General: This is an icteric, ill-appearing, middle-aged male. He is intubated and sedated. Head, Eyes, Ears, Nose, and Throat: The patient has an orotracheal and a nasogastric tube in place. Neck: No stiffness. Lungs: Had bilateral rhonchi. Cardiovascular: Heart rate is regular. Abdomen: Soft and somewhat protuberant. It did not appear to be tender. The patient's abdomen is distended and it may have ascites present but I doubt that the patient has spontaneous bacterial peritonitis. Neurologic: The patient is obtunded. There is no tremor. Integument: The patient is icteric. LAB AND X-RAY: Chest x-ray shows bilateral dense infiltrates. The stool for Clostridium difficile antigen was positive. The toxin was negative. CBC shows a white count of 13,020, hemoglobin 6.5, and platelet count 69,000. Blood gases show a pH of 7.43, a PO2 of 88, and a pCO2 of 26. The creatinine is 4.1. GFR is 15. ASSESSMENT AND PLAN: The patient may well have pneumonia. He has also Clostridium difficile diarrhea. My plan is to continue meropenem and micafungin for the pneumonia, and I have started the patient on liquid vancomycin for the Clostridium difficile diarrhea. COMORBIDITIES: The patient smokes cigarettes. He is an alcoholic and he has cirrhosis of the liver with ascites. cc: Toy Tucker MD [facility]
--- NOTE | 2018-10-08 08:24 | NEPHROLOGY PROGRESS NOTE ---
DATE: 10/08/2018 TIME SEEN: 0620 hours. SUBJECTIVE: Mr. Nath remains ventilator dependent. He has very little response to tactile or verbal stimuli. No sedation is on board. OBJECTIVE: His most recent vital signs: Temperature 98.5 degrees, blood pressure 102/56, heart rate 99 respirations 19. He has had 2200 in, 395 out. He is currently 15 L positive. He remains on 40% FiO2. Last recorded saturation is 97%. General: The patient has no labs this a.m. his last potassium was 3.5; last hemoglobin 6.5. He remains on pressor support. HEENT: Normocephalic, atraumatic. Pupils are equal, though slow to react. Sclera is icteric. Oropharynx is jaundiced. Mucous membranes are dry. Oral ET tube is in place. Neck: Supple. Positive JVD. Cardiovascular: Regular rate and rhythm. Tachycardic on the monitor. Lungs: Have scattered crackles bilateral, coarse on auscultation. Remains ventilator dependent with O2 support. Abdomen: Slightly distended. NG tube remains intact. Low intermittent suction. Genitourinary: Not inspected. Simon catheter is in place with minimal urine out. Extremities: Continues with 2+ to 3+ lower extremity edema. No clubbing or cyanosis. Integumentary: Patient continues with petechiae over his face, upper torso, upper arms, greater than lower extremities. These continue again to look worse today than they actually did yesterday. Neurological: As above. ASSESSMENT AND PLAN: 1. Acute kidney injury. Patient remains oliguric. Family has stated that they would like to keep the patient on ventilatory support for a total of 7 days, this ending tomorrow. The patient was intubated on the twenty-first of this month. It is felt that he is not a candidate for hemodialysis, indicating that this treatment would not impact or improve his overall outcome which is poor during this hospital stay. 2. Electrolytes and acid-base balance are currently pending this a.m. He has continued metabolic and lactic acidosis. 3. Anemia of hemoglobin 6.5 yesterday. He did receive 1 unit of packed red blood cells. 4. He continues with gastrointestinal blood loss. This is followed by Dr. Topete. He has seizure control, which is being followed by Dr. Brennan. I would like to thank you for allowing us to follow with this patient. Dictated by DIANDRA Carcamo for Janusz Sainz MD Face to face encounter, data reviewed, discussed with Geetha Lorenz on 10/08/18. I agree with the above assessment and plan of care. cc: DIANDRA Carcamo MD [facility]
--- NOTE | 2018-10-08 09:18 | PROGRESS NOTE ---
DATE: 10/08/2018 SUBJECTIVE: This morning, Mr. Nath continues to be remarkably sick, intubated. OBJECTIVE: Vital Signs: Blood pressure is 101/58, pulse of 100, respirations are 18, temperature is 98.5 degrees. General Examination: Mr. Nath is a 54-year-old, male. He is in bed. Continues to be intubated. No sedation. HEENT: Mucosa is pink. Icteric. Neck: Supple. Chest: Air entry is bilaterally reduced. There are crackles in both lung pink. Cardiovascular: Regular rate and rhythm. Mildly tachycardic but no murmurs, no rubs, no gallops. GI: Abdomen is soft. It is distended. Bowel sounds hypoactive. There is a positive fluid thrill. Extremities: No pedal edema. COMPUTATIONAL CHEMIST: The patient continues to be comatose, unresponsive. There is some mild response with plantar flexion on the right leg but I did not get any response on the left. Pupils are round and very sluggishly reactive. No corneal reflex. No gag reflex. Laboratory Data: Still pending. The patient's C. difficile antigen is positive but the toxin is negative. However, Mr. Nath is on lactulose with the purpose of making him have bowel movements because of encephalopathy. ASSESSMENT: 1. Persistent unresponsiveness/comatose, presumably due to severe hepatic encephalopathy, status epilepticus, and hypoxemic ischemic brain injury. The patient continues to be comatose. No changes over the last 24 hours. Neurology is on board. 2. Refractory shock, presumably septic. The patient continues to be needing Levophed and on stress doses of steroids. 3. Oliguric acute kidney injury. Urine output was just about 245 in 24 hours. 4. Advanced decompensated alcohol cirrhosis complicated with portal hypertension, coagulopathy, severe hepatic encephalopathy, ascites, and gastrointestinal bleed. Gastroenterology is on board. 5. Acute hypoxemic respiratory failure. Patient is intubated. Today is day 5 on mechanical ventilation. Pulmonary medicine is on board. 6. Massive ascites, status post large volume paracenteses on presentation, associated with left hepatic hydrothorax. 7. Clinical seizures with electroencephalogram supporting findings. The patient is currently on antiseizure medications. Neurology is on board. 8. Disseminated intravascular coagulation. The patient has been given 1 transfusion of cryo. We are going to repeat the fibrinogen this morning. 9. Right lung pneumonia. The patient is currently on meropenem and micafungin. Infectious disease is on board. 10. Diarrhea, with Clostridium difficile antigen positive. I am not quite sure if this is really truly infection. The patient is getting lactulose because of his hepatic encephalopathy. Of note, the toxin is negative. Infectious disease is on board. I think there is a plan to start treatment for possible Clostridium difficile diarrhea. General. Mr. Nath continues to be extremely sick with a very poor prognosis. Has not made any obvious improvement in the last 24 hours. We will be pending further discussions with the family. cc: Hero López MD MTDD
[2018-10-08] MEDS: XIFAXAN FT SCH ×2 (09:29→20:07)
[2018-10-08] MEDS: KEPPRA 1,000 MG in NS 100 ML IV SCH ×2 (09:30→20:07)
[2018-10-08] MEDS: MYCAMINE 100 MG in NS 100 ML IV SCH (09:30)
[2018-10-08] MEDS: VANCOMYCIN ORAL SOLN PO SCH ×3 (09:40→20:07)
[2018-10-08 09:55] LABS: INR 2.33; PROTIME 27.2 Seconds (11.0-16.0)
[2018-10-08 09:58] LABS: BASO# 0.02 X1000 (0.0-0.2); BASO% 0.1 % (0.0-0.8); HEMATOCRIT 21.6 % (42.0-52.0); HEMOGLOBIN 7.3 g/dL (14.0-18.0); IMM GRAN# 0.08 X1000 (0.0-0.04); IMM GRAN% 0.5 % (0.0-0.5); LYMPH# 0.89 X1000 (1.2-3.4); LYMPH% 5.8 % (20.5-51.1); MCHC 33.8 g/dL (33-37); MCV 97.7 FL (81-99); MONO# 0.61 X1000 (0.11-0.59); MONO% 3.9 % (1.7-9.3); MPV 10.1 FL (7.4-10.4); NEUT# 13.85 X1000 (1.4-6.5); NEUT% 89.7 % (42.2-75.2); PLT 59 X1000 (130-400); RBC 2.21 XMIL (4.7-6.1); RDW 22.6 % (11.5-14.5); WBC 15.45 X1000 (4.8-10.8)
--- NOTE | 2018-10-08 10:22 | PROGRESS NOTE ---
DATE: 10/08/2018 SUBJECTIVE: Mr. Nath looks about the same clinically. OBJECTIVE: Lateral extraocular movement with vigorous head turning was minimal. I did not see definite pupil reaction to light. I did not find definite corneal reflex bilaterally. Limb tone is symmetric. There was no response to noxious stimulation over the limbs. The left shoulder twitch was minimal during my time at the bedside, but I believe there were at least a few twitches. Phenytoin level was 20.2 early this morning. Continues levetiracetam 1000 mg q 12 hours and fosphenytoin 100 mg q 8 hours. Creatinine up to 4.3 today. IMPRESSION AND PLAN: Persistent unresponsiveness, concern for irreversible encephalopathy. He had seizure earlier with persistent focal motor seizure and prominent EEG findings. He is therapeutic with phenytoin. I will order levetiracetam level and follow. Expect high levetiracetam level with current dose and elevated creatinine. We might need to reduce levetiracetam, consider adding a third AED and consider repeating EEG later. Prognosis is poor. Thanks for asking Neurology to see Mr. Nath. cc: MD LEONARDO Carrera III
[2018-10-08 11:01] LABS: POTASSIUM 3.6 mmol/L (3.5-5.1); SODIUM 134 mmol/L (136-145)
[2018-10-08 11:02] LABS: AGAP 28; ALB/GLOB RATIO 2.2; ALBUMIN 4.4 g/dL (3.5-5.0); BUN 86 mg/dL (8-22); CALCIUM 8.6 mg/dL (8.8-10.2); CHLORIDE 91 mmol/L (98-107); COSMO 297; CREATININE 4.3 mg/dL (0.7-1.2); GLUCOSE 140 mg/dL (70-104); TCO2 15 mmol/L (25-35); TOTAL BILIRUBIN 6.85 mg/dL (0.20-1.00); TOTAL PROTEIN 6.4 g/dL (6.3-8.3)
[2018-10-08 11:03] LABS: ALKALINE PHOSPHATASE 71 U/L (32-122); GOT 69 U/L (10-34); GPT 19 U/L (10-44)
[2018-10-08 13:17] LABS: BANDS 12 % (0-1); LYMPHS 5 % (21-51); MONO 2 % (1-9); SEGS 81 % (42-75)
--- NOTE | 2018-10-08 20:22 | PULMONOLOGY PROGRESS NOTE ---
DATE: 10/08/2018 SUBJECTIVE: The patient is unresponsive to physical stimuli. He remains on vasopressor support. OBJECTIVE: Vital Signs: Blood pressure 99/51, heart rate 99, respiratory rate 20, oxygen saturation 97%. HEENT: Pupils are equal but icteric. Oropharynx appears clear with endotracheal tube in place. Neck: Supple. Chest: Reveals coarse rhonchi bilaterally. Cardiac exam: S1-S2. Abdomen: Reveals increasing distention. Extremities: Reveal generalized edema and bruising. LABORATORY DATA: White blood count 15.45, hemoglobin 7.3, platelet count 59,000. Sodium 134, potassium 3.6, chloride 91, bicarbonate 15, BUN 86, creatinine 4.3, bilirubin 6.85. INR is 2.33. Microbiology reveals normal emiliana on sputum cultures. C difficile antigen is positive. C difficile toxin is negative. IMAGING: Chest x-ray reveals bilateral infiltrates without change. IMPRESSION: A 53-year-old with 1. Acute hypoxemic respiratory failure. 2. Acute on chronic liver failure. 3. Acute and progressive renal failure. 4. Gastrointestinal bleeding. 5. Disseminated intravascular coagulation. 6. Pneumonia. 7. Seizures. 8. Pleural effusions. PLAN: 1. Continue ventilatory support. 2. Continue current antibiotic regimen. 3. Continue to replace blood products as needed. 4. Ongoing seizure management per Neurology. 5. The patient's prognosis is extremely poor. Critical Care Time: 30+ minutes cc: Koby Holloway MD [facility]
[2018-10-09] MEDS: CEREBYX IV SCH ×2 (00:46→10:23)
[2018-10-09] MEDS: MERREM 1 GM in NS 50 ML IV SCH ×2 (00:46→08:46)
[2018-10-09] MEDS: VANCOMYCIN ORAL SOLN PO SCH ×2 (02:28→08:48)
[2018-10-09 04:39] LABS: ALLEN TEST YES; BE -9.9 mmoll (-3.0-3.0); BLOOD TYPE ARTERIAL; HCO3-(ACT) 17.2 mmoll (20.0-26.0); METHB 1.1 % (0.0-1.5); O2(CT) 9.5 mL/dL (15.0-23.0); O2HB 96.7 % (95.0-99.0); PCO2(98.6) 24 mmHg (35-45); PO2(98.6) 117 mmHg (60-100); SAMPLE BLOOD; SAO2 99.8 % (95.0-100.0); SRATE 14 BPM; THB 6.8 g/dL (11.5-17.4); TVOL 600 mL; pH(98.6) 7.38 (7.35-7.45)
[2018-10-09 04:44] LABS: MODALITY VENTILATOR
[2018-10-09 04:59] LABS: INR 2.33; PROTIME 27.2 Seconds (11.0-16.0)
[2018-10-09 05:04] LABS: BASO# 0.01 X1000 (0.0-0.2); BASO% 0.1 % (0.0-0.8); HEMATOCRIT 20.4 % (42.0-52.0); HEMOGLOBIN 6.7 g/dL (14.0-18.0); IMM GRAN# 0.08 X1000 (0.0-0.04); IMM GRAN% 0.5 % (0.0-0.5); LYMPH# 1.01 X1000 (1.2-3.4); LYMPH% 5.9 % (20.5-51.1); MCH 32.2 PG (27-31); MCHC 32.8 g/dL (33-37); MCV 98.1 FL (81-99); MONO# 0.52 X1000 (0.11-0.59); MONO% 3.1 % (1.7-9.3); MPV 10.4 FL (7.4-10.4); NEUT% 90.4 % (42.2-75.2); PLT 52 X1000 (130-400); RBC 2.08 XMIL (4.7-6.1); RDW 22.4 % (11.5-14.5); WBC 17.02 X1000 (4.8-10.8)
[2018-10-09 05:10] LABS: ALB/GLOB RATIO 1.6; ALBUMIN 3.6 g/dL (3.5-5.0); CALCIUM 8.9 mg/dL (8.8-10.2); CREATININE 4.5 mg/dL (0.7-1.2); POTASSIUM 3.9 mmol/L (3.5-5.1); TOTAL BILIRUBIN 5.97 mg/dL (0.20-1.00); TOTAL PROTEIN 5.8 g/dL (6.3-8.3)
[2018-10-09] MEDS: PROTONIX IV SCH (05:47)
[2018-10-09] MEDS: SOLU-CORTEF IV SCH (05:47)
[2018-10-09] MEDS: SYNTHROID IV SCH (06:32)
[2018-10-09] MEDS: SODIUM CHLORIDE 0.9% INJ PRN (06:33)
[2018-10-09] MEDS ORDERED: NS 250 ML ONE (06:41)
--- NOTE | 2018-10-09 08:06 | Diag Imaging Result Doc PS360 ---
EXAM: CHEST-PORTABLE INDICATION: Vent TECHNIQUE: One view COMPARISON: 10/08/2018 FINDINGS: Support tubes and lines are in stable positions. Bilateral diffuse airspace infiltrates are essentially stable given slight differences in positioning. No new consolidation is identified. Cardiac silhouette is stable. IMPRESSION: Essentially stable chest. Electronically signed by Shaan Duke 10/09/2018 8:03 AM
[2018-10-09] MEDS: LACTULOSE PO SCH (08:47)
[2018-10-09] MEDS: KEPPRA 1,000 MG in NS 100 ML IV SCH (08:47)
[2018-10-09] MEDS: XIFAXAN FT SCH (08:47)
[2018-10-09] MEDS: MYCAMINE 100 MG in NS 100 ML IV SCH (09:03)
--- NOTE | 2018-10-09 09:06 | NEPHROLOGY PROGRESS NOTE ---
DATE: 10/09/2018 TIME SEEN: 0645 hours. SUBJECTIVE: Mr. Nath is resting quietly in bed, head of the bed is slightly elevated. He appears in no acute distress, remains ventilator dependent, unresponsive. VITAL SIGNS: Temperature 98.9 degrees, blood pressure 100/53, heart rate is 101, respirations are 16. He is on 40% FiO2. Last recorded saturation is 98%. He has had 981 in. He has had 236 out. He remains 16 L positive. LABORATORY DATA: Sodium 134, potassium 3.9, chloride 92, CO2 14, BUN 111, creatinine 4.5, glucose 119. His anion gap is 28. Calcium 8.9. Albumin 3.6. White count 17.02, hemoglobin 6.7, hematocrit 20.47, platelet count 52,000. The patient has a negative C difficile antibody, with a positive C difficile antigen. The patient is currently on isolation. PHYSICAL EXAMINATION: General: This is a 53-year-old white male resting quietly in bed. He is currently on pressor support, ventilatory support, no sedation, no response. HEENT: Normocephalic, atraumatic. Pupils are very slow to react if any. Sclerae icteric. Oropharynx is jaundiced and dry. Oral ET tube is in place. Neck: Supple. Positive JVD. Cardiovascular: Regular rate and rhythm. Tachycardic on the monitor. Lungs: The lungs have scattered crackles bilateral, with coarse breath sounds to auscultation. Ventilatory support continues. Abdomen: Distended. NG tube remains intact. Genitourinary: Not inspected. Simon catheter is in place with scant urine out. Integumentary: The patient continues with jaundice, petechiae over face, upper torso, upper arms, some lower extremities. Appears no changes from yesterday. Extremities: Continues with 3+ lower extremity edema up into the arm. Some facial edema present. Neurological: As above. ASSESSMENT AND PLAN: Acute kidney injury. The patient is oliguric. There is a discussion that family is going to withdraw care today. Due to these findings we will sign off at this time. Not a dialysis candidate. I would like to thank you for allowing us to follow with this patient. Dictated by DIANDRA Carcamo for Janusz Sainz MD Face to face encounter, data reviewed, discussed with Geetha Lorenz on 10/09/18. I agree with the above assessment and plan of care. cc: DIANDRA Carcamo MD [facility]TD[facility]
--- NOTE | 2018-10-09 09:41 | PROGRESS NOTE ---
DATE: 10/09/2018 SUBJECTIVE: This morning Mr. Nath continues to be in the ICU intubated extremely critical condition. No family members at the bedside. Per the palliative care nurse note, it appears that the family plans to withdraw care today around lunch time and this was also narrated to me by the by the patient's nurse this morning. OBJECTIVELY: Current vitals blood pressure is 100/53, pulse of 102, respirations 20, temperature 98.7 degrees. Patient is saturating 98% on mechanical ventilation.General: Mr. Nath is a 53-year- old male. He is in bed, currently intubated. No sedation. Mucosa is pink. Anicteric. Neck: Supple. Chest: Air entry is bilaterally reduced. There are crackles in the posterior lung pink. There are some transmitted sounds from the ventilator as well. Cardiovascular: Regular rate and rhythm. No murmurs. Abdomen: Soft, is distended. Hypoactive bowel sounds. Simon catheter is still in place. Extremities: No pedal edema. JUVENILE COUNSELOR: Patient is unresponsive and comatose. There is a mild plantar flexion of the toes, but otherwise there is no other response. The pupils are slightly round and extremely sluggishly reactive to light. The patient does not track with head movement and there is no gag or corneal reflex. LABORATORY DATA: WBC is up to 17.02, hemoglobin is 6.7, platelet count of 52,000. Chemistry is also reviewed. Creatinine continues to climb. The patient's I's and O's, output was 235. DIAGNOSTIC STUDIES: A chest x-ray this morning continues to show bilateral dense airspace infiltrate which is essentially stable. ASSESSMENT: 1. Persistent unresponsiveness/comatose. Etiologies include severe hepatic encephalopathy, status epilepticus and hypoxemic ischemic brain injury. No changes over the course over the last 24 hours. Neurology is on board. 2. Refractory septic shock. The patient continues to be on antibiotics. Levophed has been discontinued this morning. The patient is also on stress doses of steroids. 3. Oliguric acute kidney injury. No recovery. Creatinine continues to worsen. 4. Advanced decompensated alcohol cirrhosis complicated with portal hypertension, coagulopathy, severe hepatic encephalopathy, ascites, and GI bleed. GI is on board. 5. Acute hypoxemic respiratory failure with chest x-ray findings consistent with ARDS. Today is day 6 on mechanical ventilation. Pulmonary Medicine is on board. 6. Bilateral multifocal pneumonia. ID is on board. Patient is on IV antibiotics. 7. Massive ascites status post large volume paracenteses on presentation associated with left hepatic hydrothorax. 8. Clinical seizures with EEG supporting findings. The patient is currently on fosphenytoin and Keppra. Neurology is on board. We have not seen any more jerky or seizure activities. 9. 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 10. Diarrhea with C diff antigen positive. Patient is being treated for presume C diff infection. Prognosis is extremely poor. No improvement in patient's clinical status for the last 48 to 72 hours. I understand there is a plan for permanent extubation today. I am waiting on the family members to come and I am also pending further discussions with palliative medicine. We were planning to transfuse the patient this morning because of low H and H; however, because of the impending withdrawal, we will withhold on to that until we have the discussions. cc: Hero López MD Addendum: I have spoken to the family. They have decided to make patient CENSUS CLERK. They also recommend to extubate patient. Palliative nurse has also met with the family. We will honor their request. [facility]
--- NOTE | 2018-10-09 14:10 | GASTROENTEROLOGY PROGRESS NOTE ---
DATE: 10/09/2018 SUBJECTIVE: The patient is resting in bed. The patient is nonresponsive. He is intubated and ventilated. He is not on sedation but he has no return of neurological function per the nursing staff. The family is leaning towards hospice care. PHYSICAL EXAMINATION: Vital Signs: Temperature of 98.1 degrees, pulse rate of 99, respiratory rate of 19, blood pressure of 100/54, saturating 90% on mechanical ventilator, FiO2 of 40%. Body weight of 194 pounds and 8 ounces. BMI 28.7 kg/m2. General Appearance: Moderately built, moderately nourished, lying in bed, intubated and ventilated. Nonresponsive. HEENT: Positive pallor and icteric sclerae. ET tube in place. NG tube in place. Neck: Supple. Abdomen: Protuberant. No guarding. Extremities: No cyanosis, clubbing. Neurologic: Unresponsive. LABS: Hemoglobin and hematocrit are 6.7 and 20.4, white count of 17.02, platelet count of 52,000. Sodium of 134, potassium 3.9, chloride of 92, bicarb 14, anion gap of 28, BUN 111, creatinine of 4.5, glucose of 119, calcium is 8.9. Total bilirubin is 5.97, AST 76, ALT 20, alkaline phosphatase 76, total protein 5.8, albumin of 3.6. ABG showing pH of 7.38, pCO2 of 24, PO2 of 117. This is on the ventilator at 40% FiO2. His stool studies of Clostridium difficile toxin is negative, Clostridium difficile antigen is positive. Chest x-ray done today showed essentially stable chest. Bilateral diffuse airspace infiltrates. No new consolidation. Cardiac silhouette is stable. IMPRESSION AND PLAN: 1. Comatose state. Refractory septic shock. Decompensated alcoholic liver cirrhosis. 2. Portal hypertension. 3. Coagulopathy. 4. Hepatic encephalopathy. 5. Ascites and gastrointestinal bleed. 6. Anemia. 7. Acute hypoxic respiratory failure and findings on x-ray suggesting acute respiratory distress syndrome. 8. Mild bilateral multifocal pneumonia. 9. Clinical seizures on electroencephalogram, being followed by the neurology team. 10. 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 11. Diarrhea with Clostridium difficile antigen positive. RECOMMENDATIONS: 1. We will continue with aggressive supportive care. We will continue to trend the liver enzymes and PT/INR, ABG, and CBC. The prognosis is poor. The family is leaning towards comfort care. We will keep the patient on PPIs b.i.d. We will continue the patient on Xifaxan and he will continue on broad-spectrum antibiotics. He will also continue on lactulose 3 times daily. He is on stress dose steroids. 2. We will sign off at this time. Please call us with any further questions. I discussed the above plan of care with the patient's nursing staff and all questions were answered. Please call with any questions. cc: MD Hero Kimble MD
--- NOTE | 2018-10-09 14:14 | INFECTIOUS DISEASE PROGRESS NO ---
DATE: 10/09/2018 The patient has told his family that if he ever is on a life support that he wanted to have 7 days of treatment and if he was no better, then he wanted to have all treatments stopped and allow the patient to naturally. The patient has had 7 days now and he has not improved. Therefore, we are stopping treatment and we will do just comfort measures. About the fact of the patient having Clostridium difficile diarrhea, looking back, what we have found is that the patient was on lactulose in fairly high doses and that is what caused the diarrhea. This is because when the lactulose was decreased in frequency, the patient stopped having diarrhea altogether and he had just one bowel movement per day. Because of this, I doubt that the patient ever had Clostridium difficile diarrhea. Rather, I think it was due to the lactulose. I feel the lactulose was causing the patient's diarrhea. Because of this, I am going to discontinue the Clostridium difficile isolation procedures. I am signing off of the patient's case. cc: Toy Tucker MD [facility]TD[facility]
[2018-10-09] MEDS ORDERED: ATROPINE 1 % OPHTH SOLN SL PRN (14:17)
[2018-10-09] MEDS ORDERED: TYLENOL PR PRN (14:17)
[2018-10-09] MEDS: ATIVAN IV PRN ×4 (14:19→20:24)
[2018-10-09] MEDS: MORPHINE IV PRN ×4 (14:19→20:24)
[2018-10-09] MEDS ORDERED: ATIVAN IV PRN (15:04)
[2018-10-09] MEDS ORDERED: MORPHINE IV PRN (15:05)
[2018-10-09] MEDS ORDERED: ROXANOL CONC. LIQUID SL PRN (18:07)
[2018-10-09] MEDS ORDERED: ATIVAN PO PRN (18:10)
--- NOTE | 2018-10-09 20:08 | PULMONOLOGY PROGRESS NOTE ---
DATE: 10/09/2018 SUBJECTIVE: The patient does not respond to painful stimuli. He does have spontaneous respiratory effort. He remains on mechanical ventilation. OBJECTIVE: The patient has been afebrile for the last 24 hours. Blood pressure 98/54, heart rate 101, respiratory rate 18, oxygen saturation 98%. HEENT: There is some crusting of secretions on the corneal surface. Pupils appear equal but minimally reactive to light. Icteric sclerae are noted. Oropharynx reveals icteric mucosa. Neck is supple. Chest reveals scattered rhonchi bilaterally. Cardiac exam: Increased rate, regular rhythm. Abdomen reveals mild distention with decreased bowel sounds. Extremities reveal generalized edema and bruising. LABORATORY DATA: White blood count 17.02, hemoglobin 6.7, platelet count 52,000. Sodium 134, potassium 3.9, chloride 92, bicarbonate 14, BUN 111, creatinine 4.5, bilirubin 6. Arterial blood gas: PH 7.38, pCO2 of 24, pO2 of 117 with a lactate of 6.8. DIAGNOSTIC DATA: Chest x-ray reveals diffuse bilateral infiltrates. IMPRESSION: A 53-year-old with: 1. Acute hypoxemic respiratory failure. 2. [id number] liver failure. 3. Progressive renal failure which is acute. 4. Ongoing gastrointestinal bleeding and blood loss. 5. Disseminated intravascular coagulation. 6. Seizures. 7. Encephalopathy. 8. Bilateral pneumonias. 9. Bilateral pleural effusions. DISCUSSION: A 53-year-old with problems outlined above. The patient has multiorgan dysfunction syndrome with ongoing lactic acidosis. The patient's prognosis is extremely poor. The nurse indicates that family discussions have been held with the Palliative Care team, and compassionate extubation with comfort measures is anticipated. 1. Continue end-of-life discussions. 2. Continue current support, pending withdrawal of care. Time spent in critical care management 30-plus minutes. cc: Koby Holloway MD
[2018-10-09 21:37] VITALS: BP 78/41
[2018-10-10] MEDS: MORPHINE IV PRN (00:35)
--- NOTE | 2018-10-11 13:20 | DISCHARGE SUMMARY ---
ADMISSION DATE: 09/30/2018 DISCHARGE DATE: 10/10/2018 DATE OF : 10/10/2018 TIME OF : 0137 The patient was pronounced by 2 nurses. CONSULTATION DURING THIS ADMISSION: 1. Pulmonary Medicine was consulted. Patient was seen by Dr. Manuel and followed up by Dr. Holloway. 2. Gastroenterology was consulted. Patient was seen by Dr. Bennett and also followed up by Dr. Topete. 3. Neurology was consulted. Patient was seen by Dr. Brennan. 4. Infectious Diseases was consulted. Patient was seen by Dr. Tucker. 5. Nephrology was consulted. Patient was seen by Dr. Sainz. INVASIVE PROCEDURES DONE DURING THIS ADMISSION: Endotracheal intubation was done by Dr. Baird in an emergency situation. IMAGING STUDIES OF SIGNIFICANCE: A CT scan of the abdomen without contrast, which shows cirrhosis, portal hypertension, splenomegaly. There was a large ascites, moderately large left pleural effusion. A CT scan of the chest showed the large left pleural effusion, presumably hepatic effusion. Large quantity of ascites. Multiple chest x-rays were done. An EEG was done which showed abnormal EEG because of burst suppression pattern with prominent generalized epileptiform discharges. ADMISSION DIAGNOSES: 1. Cirrhosis with ascites. 2. Left pleural effusion. 3. Coagulopathy. 4. Hypothyroidism. DIAGNOSIS AT THE TIME OF : 1. Persistent unresponsiveness/comatose secondary to severe hepatic encephalopathy, status epilepticus, and a hypoxemic ischemic brain injury. 2. Refractory septic shock. 3. Oliguric acute kidney injury. 4. Advanced decompensated alcoholic cirrhosis complicated with portal hypertension, coagulopathy, severe hepatic encephalopathy, splenomegaly, ascites, and gastrointestinal bleed. 5. Acute hypoxemic respiratory failure with chest x-ray finding consistent with acute respiratory distress syndrome. 6. Bilateral multifocal pneumonia. 7. Massive ascites status post large volume paracentesis on presentation. 8. Left hepatic hydrothorax. 9. Clinical seizures with EEG supporting findings. 10. Microangiopathic anemia secondary to disseminated intravascular congestion. 11. Refractory multiorgan failure. PRESENTING COMPLAINT: Abdominal pain. HISTORY OF PRESENTING COMPLAINT: Mr. Nath is 53-year-old gentleman, who is known to have cirrhosis of the liver, who came to the emergency department because of abdominal discomfort and increased abdominal girth. The patient was evaluated and was found to have massive ascites, was subsequently admitted for medical management. Mr. Nath was admitted to the medical floor. A large volume paracentesis was done which fluid analysis was negative for SBP. However, a couple days after hospitalization Mr. Nath became more short of breath more abdominal pain and became acutely hypoxemic failure. He was subsequently transferred to the ICU and got intubated. During hospital course, Mr. Nath was seen by multiple subspecialties for multiple reasons. Unfortunately, during the hospital course Mr. Nath's condition did not show any improvement. There were times that Dr. Bennett tried to reach [place],, the hepatology services, to see if the patient would be a transfer. Unfortunately, at the time Mr. Nath was extremely hypotensive. He was clinically unstable for any transfer. The family members decided at some point that they would make him DNR and not escalate any therapy. Neurology was consulted because of persistent unresponsiveness, comatose. EEG did show some burst of epileptiform discharges; however, anoxic brain injury could not be ruled out. Unfortunately. Mr. Nath's condition continued to worsen, and he did not improve. He was subsequently made a DNR level 1 and comfort care. Family members requested complete terminal extubation which was successfully done in the wee hours of 10/10/2018. Mr. Harman was found without any signs of vitality. He was subsequently pronounced by 2 nurses, and the family was notified. cc: Hero López MD
== END 2018-10-10 01:37 | disposition expired | DRG 432 ==
LOC: ED 00:51 → 3N 06:06 → SUATTDRO 06:06 → ICU 10-02 13:24 → 3N 10-09 22:52
PROVIDERS: ATTEND Internal Medicine